=== PATIENT | male | born 1955 | race Caucasian/White ===

== ENCOUNTER 2017-02-11 14:54 | Inpatient (IN) | payer OTHER ==
[~2017-02-11] VITALS: Ht 185.4 cm; Wt 105.0 kg
[2017-02-11] MEDS ORDERED: SODIUM CHLORIDE 0.9% 1000ML 1,000 ML IV STA ×3 (15:02→15:50)
--- NOTE | 2017-02-11 15:15 | EMERGENCY ROOM VISIT NOTE ---
History Report prepared by Gretta: Jolly Wilburn Under the Supervision of: Dr. Thanh Perdue M.D. First contact with patient: 14:56 Stated Complaint: HYPOXIA, HYPOTENSION History of Present Illness The patient is a 61 year old male who presents to the Emergency Room with complaints of persistent hypoxia that started prior to arrival. He was brought to the ED via EMS. EMS reports the patient experienced a near syncopal episode while at his doctor's office earlier today. The patient states he began to feel short of breath, then "everything went white" while he was waiting to be seen. His blood pressure was very low in the office, so EMS was called. The patient denies experiencing any chest pain today. He recently left [facility] after a 6 day stay. He states he left AMA because he was "fed up" with being mistreated while at [place]. He has been home for approximately 2 days. He states he has been eating and drinking normally. He has a history of renal failure and admits he has experienced decreased urinary output recently. He denies any dysuria or hematuria. The patient also complains of cold symptoms that started yesterday, which prompted him going to the doctor's today. He denies any fevers. He is a current smoker and reports he uses a walker to ambulate. 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 A total of 10 systems reviewed and were otherwise negative. Past Medical & Surgical Medical Problems: (1) Renal failure Social History Alcohol Use: occasionally Drug Use: none Marital Status: Housing Status: lives with family Occupation Status: retired Current/Historical Medications Scheduled Amlodipine (Norvasc), 5 MG PO DAILY Celecoxib (Celebrex), 200 MG PO DAILY Folic Acid (Folvite), 1 MG PO DAILY Hydrochlorothiazide (Hctz), 25 MG PO DAILY Lisinopril (Zestril), 40 MG PO DAILY Prednisone (Prednisone), 10 MG PO DAILY Allergies Coded Allergies: Sulfa Drugs (Verified Allergy, Unknown, 02/11/17) Physical Exam Vital Signs Date Time Temp Pulse Resp B/P (MAP) Pulse Ox O2 Delivery O2 Flow Rate FiO2 02/11/17 17:25 84 24 102/74 98 Room Air 02/11/17 16:07 87 20 102/69 98 Room Air 02/11/17 15:17 106 02/11/17 15:07 36.7 108 20 89/57 98 Room Air 02/11/17 15:07 98 Room Air Physical Exam GENERAL: Patient is in no acute distress. HEENT: No acute trauma, normocephalic atraumatic, mucous membranes dry, no nasal congestion, no scleral icterus. NECK: No stridor, no adenopathy, no meningismus, trachea is midline. LUNGS: Scattered wheezing, breath sounds are equal, no rhonchi, no respiratory distress. HEART: Tachycardic with a regular rhythm. No murmurs. ABDOMEN: Soft, nontender, bowel sounds positive, no hernias, no peritonitis. RECTAL: Stool is dark and heme positive. EXTREMITIES: No cyanosis, mild bilateral pedal edema, full range of motion of all the joints without pain or difficulty, no signs for acute trauma. NEUROLOGIC: Oriented x 3, no acute motor or sensory deficits, no focal weakness. SKIN: No rash, no jaundice, no diaphoresis. Medical Decision & Procedures ER Provider Diagnostic Interpretation: Radiology results as stated below per my review and radiologist interpretation: CHEST ONE VIEW PORTABLE CLINICAL HISTORY: Altered mental status. Weakness. COMPARISON STUDY: No previous studies for comparison. FINDINGS: The heart is normal in size. Underlying emphysema is suspected. There is no acute parenchymal consolidation. There is no failure. There are no pleural effusions. IMPRESSION: AP portable study. No acute findings. Electronically signed by: Elias Simpson M.D. 02/11/2017 3:45 PM Laboratory Results 02/11/17 14:37 Red Blood Count 2.69, Mean Corpuscular Volume 99.6, Mean Corpuscular Hemoglobin 33.1, Mean Corpuscular Hemoglobin Concent 33.2, Mean Platelet Volume 10.7, Neutrophils (%) (Auto) 88.0, Lymphocytes (%) (Auto) 5.9, Monocytes (%) (Auto) 5.0, Eosinophils (%) (Auto) 0.8, Basophils (%) (Auto) 0.0, Neutrophils # (Auto) 6.36, Lymphocytes # (Auto) 0.43, Monocytes # (Auto) 0.36, Eosinophils # (Auto) 0.06, Basophils # (Auto) 0.00 02/11/17 14:37 Test 02/11/17 14:37 02/11/17 15:15 02/11/17 16:48 White Blood Count 7.23 K/uL (4.8-10.8) Red Blood Count 2.69 M/uL (4.7-6.1) Hemoglobin 8.9 g/dL (14.0-18.0) Hematocrit 26.8 % (42-52) Mean Corpuscular Volume 99.6 fL (80-100) Mean Corpuscular Hemoglobin 33.1 pg (25-34) Mean Corpuscular Hemoglobin Concent 33.2 g/dl (32-36) Platelet Count 165 K/uL (130-400) Mean Platelet Volume 10.7 fL (7.4-10.4) Neutrophils (%) (Auto) 88.0 % Lymphocytes (%) (Auto) 5.9 % Monocytes (%) (Auto) 5.0 % Eosinophils (%) (Auto) 0.8 % Basophils (%) (Auto) 0.0 % Neutrophils # (Auto) 6.36 K/uL (1.4-6.5) Lymphocytes # (Auto) 0.43 K/uL (1.2-3.4) Monocytes # (Auto) 0.36 K/uL (0.11-0.59) Eosinophils # (Auto) 0.06 K/uL (0-0.5) Basophils # (Auto) 0.00 K/uL (0-0.2) RDW Standard Deviation 51.2 fL (36.4-46.3) RDW Coefficient of Variation 14.2 % (11.5-14.5) Immature Granulocyte % (Auto) 0.3 % Immature Granulocyte # (Auto) 0.02 K/uL (0.00-0.02) Red Blood Cell Morphology Unremarkable Prothrombin Time 15.9 SECONDS (9.0-12.0) Prothromb Time International Ratio 1.5 (0.9-1.1) Activated Partial Thromboplast Time 28.8 SECONDS (21.0-31.0) Partial Thromboplastin Ratio 1.1 Anion Gap 12.0 mmol/L (3-11) Est Creatinine Clear Calc Drug Dose 90.1 ml/min Estimated GFR () 82.9 Estimated GFR (Non- 71.6 BUN/Creatinine Ratio 11.1 (10-20) Calcium Level 8.1 mg/dl (8.5-10.1) Magnesium Level 1.3 mg/dl (1.8-2.4) Total Bilirubin 0.9 mg/dl (0.2-1) Aspartate Amino Transf (AST/SGOT) 23 U/L (15-37) Alanine Aminotransferase (ALT/SGPT) 31 U/L (12-78) Alkaline Phosphatase 71 U/L (45-117) Total Creatine Kinase 29 U/L (39-308) Troponin I 0.016 ng/ml (0-0.045) Total Protein 5.2 gm/dl (6.4-8.2) Albumin 2.3 gm/dl (3.4-5.0) Globulin 2.9 gm/dl (2.5-4.0) Albumin/Globulin Ratio 0.8 (0.9-2) Thyroid Stimulating Hormone (TSH) 2.530 uIu/ml (0.300-4.500) Lactic Acid Level 4.4 mmol/L (0.4-2.0) Urine Color ORANGE Urine Appearance CLEAR (CLEAR) Urine pH 7.5 (4.5-7.5) Urine Specific [place] 1.021 (1.000-1.030) Urine Protein NEG (NEG) Urine Glucose (UA) 2+ (NEG) Urine Ketones NEG (NEG) Urine Occult Blood NEG (NEG) Urine Nitrite NEG (NEG) Urine Bilirubin NEG (NEG) Urine Urobilinogen NEG (NEG) Urine Leukocyte Esterase TRACE (NEG) Urine WBC (Auto) 1-5 /hpf (0-5) Urine RBC (Auto) 0-4 /hpf (0-4) Urine Hyaline Casts (Auto) 5-10 /lpf (0-5) Urine Epithelial Cells (Auto) >30 /lpf (0-5) Urine Bacteria (Auto) NEG (NEG) Urine Renal Epithelial Cells 0-5 /lpf (0-5) Laboratory results reviewed by me. Medications Administered Medications (Trade) Dose Ordered Sig/[place] Route Start Time Stop Time Status Last Admin Dose Admin Sodium Chloride 1,000 ml @ 999 mls/hr Q1H1M STAT IV 02/11/17 15:02 02/11/17 16:02 DC 02/11/17 15:19 999 MLS/HR Sodium Chloride 1,000 ml @ 125 mls/hr Q8H STAT IV 02/11/17 15:02 02/11/17 23:01 02/11/17 15:47 125 MLS/HR Sodium Chloride 1,000 ml @ 999 mls/hr Q1H1M STAT IV 02/11/17 15:50 02/11/17 16:50 DC 02/11/17 16:06 999 MLS/HR Piperacillin Sod/ Tazobactam Sod (Zosyn Iv) 4.5 gm NOW STAT IV 02/11/17 15:58 02/11/17 15:59 DC 02/11/17 17:21 4.5 GM Hydrocortisone Sodium Succinate (Solu-Cortef IV) 100 mg NOW STAT IV 02/11/17 16:24 02/11/17 16:25 DC 02/11/17 17:21 100 MG Pantoprazole Sodium (Protonix IV Bolus/Drip) 1 ea NOW STAT IV 02/11/17 16:42 02/11/17 16:44 DC 02/11/17 17:49 1 EA Pantoprazole Sodium 80 mg/ Dextrose 120 ml @ 480 mls/hr NOW ONCE IV 02/11/17 17:00 02/11/17 17:14 DC 02/11/17 17:21 480 MLS/HR Pantoprazole Sodium 40 mg/ Dextrose 100 ml @ 20 mls/hr Q5H IV 02/11/17 17:15 02/11/17 22:14 02/11/17 17:49 20 MLS/HR ECG Indication: other (hypoxia) Rate (beats per minute): 97 Rhythm: normal sinus Findings: nonspecific-ST abn, no acute ischemic change, no ectopy ED Course 1457: The patient was evaluated in room B7. A complete history and physical exam was performed. 1502: NSS 1000 ml @ 125 mls/hr IV, NSS 1000 ml @ 999 mls/hr IV. 1550: NSS 1000 ml @ 999 mls/hr IV. 1555: The lab informed me the patients lactate is 4. 1558: Zosyn 4.5 gm IV. 1620: I reevaluated the patient. He is looking well and resting comfortably. 1624: Solu-Cortef 100 mg IV. 1630: I reevaluated the patient. He admits he has experienced 1 week of loose, dark, almost black stools. 1641: Magnesium Sulfate 2 gm IV. 1642: Protonix Bolus/Drip IV. 1646: I reevaluated the patient. He is resting comfortably. I discussed my recommendation he remain in the hospital for further evaluation and management and he verbalized complete understanding and agreement. 1706: I discussed the patients case with Dr. Dillon [facility] Hospitalist. The patient will be further evaluated. Medical Decision The differential diagnoses considered include dehydration, infection, sepsis, bacteremia, renal failure, anemia, dysrhythmia, HI or pneumonia. There is no leukocytosis. The patient is anemic with a hemoglobin of 8.9. Renal panel testing did not show renal failure. Magnesium was low at 1.3. No hepatitis. There was a mild coagulopathy with an INR 1.5-the patient does not take any type of blood thinner. Urinalysis does not suggest infection with her is an. Blood cultures are pending. Chest film did not show pneumonia, cardiomegaly or CHF. Rectal exam showed dark stool, heme positive. Lactic acid level was elevated at over 4, consistent with dehydration or possibly infection. I was able to obtain records from the outside hospital where the patient had been admitted last week. Hemoglobin there was in the 12 range. He had been brought into that hospital with acute renal failure. He was hypotensive and dehydrated. He improved with IV hydration. The patient presents here hypotensive, he appears dehydrated. He appears to be suffering from a GI bleed. He did receive aggressive IV saline, he was given 2 L while in the emergency room. He was given an IV Protonix bolus and placed on a Protonix drip. He received IV magnesium for the low magnesium value. He was given IV hydrocortisone as stress dose steroids. He did receive IV Zosyn for empiric antibiotic coverage. The patient requires a hospital stay. I spoke to the case management. The on- call hospitalist was consulted. The patient's blood pressure has improved, his heart rate has improved with his treatment in the ER. Medication Reconcilliation Current Medication List: was personally reviewed by me Blood Pressure Screening Patient's blood pressure: Low blood pressure (Low blood pressure will be further monitored by the hospital medicine team) Consults Time Called: 1641 Consulting Physician: Dr. Dillon [facility] Hospitalist Returned Call: 1650 I discussed the patients case with Dr. Dillon, [facility] Hospitalist. The patient will be further evaluated. Impression Primary Impression: Hypotension Additional Impressions: GI bleed Hypomagnesemia Dehydration Scribe Attestation The scribe's documentation has been prepared under my direction and personally reviewed by me in its entirety. I confirm that the note above accurately reflects all work, treatment, procedures, and medical decision making performed by me. Departure Information Dispostion Being Evaluated By Hospitalist Referrals No Doctor, Assigned (PCP) Problem Qualifiers
--- NOTE | 2017-02-11 15:46 | DIAGNOSTIC IMAGING REPORT ---
CHEST ONE VIEW PORTABLE CLINICAL HISTORY: Altered mental status. Weakness. COMPARISON STUDY: No previous studies for comparison. FINDINGS: The heart is normal in size. Underlying emphysema is suspected. There is no acute parenchymal consolidation. There is no failure. There are no pleural effusions.[ IMPRESSION: AP portable study. No acute findings. Electronically signed by: Elias Simpson M.D. 02/11/2017 3:45 PM Dictated Date/Time: 02/11/2017 3:44 PM
[2017-02-11] MEDS ORDERED: LISI40TA PO (15:52)
[2017-02-11] MEDS ORDERED: FOLI1TAB7 PO (15:52)
[2017-02-11] MEDS ORDERED: PRED10TA PO (15:52)
[2017-02-11] MEDS ORDERED: CLB100 PO (15:52)
[2017-02-11 15:55] LABS: EOS % 0.8 %; HEMATOCRIT 26.8 % (42-52); IG% 0.3 %; LYMPH % 5.9 %; LYMPH ABS # 0.43 K/uL (1.2-3.4); MEAN CELL VOLUME 99.6 fL (80-100); MEAN CORPUSCULAR HEMOGLOBIN 33.1 pg (25-34); MEAN CORPUSCULAR HGB CONC 33.2 g/dl (32-36); MEAN PLATELET VOLUME 10.7 fL (7.4-10.4); PLATELET COUNT 165 K/uL (130-400); RED BLOOD COUNT 2.69 M/uL (4.7-6.1); WHITE BLOOD COUNT 7.23 K/uL (4.8-10.8)
[2017-02-11] MEDS ORDERED: PIPERACILLIN/TAZOBACTAM 4.5 GM/100ML D5W IV STA (15:58)
[2017-02-11] MEDS ORDERED: HYDR25TA4 PO (16:00)
[2017-02-11] MEDS ORDERED: AMLO-110 PO (16:00)
[2017-02-11 16:04] LABS: INR 1.5 (0.9-1.1); PARTIAL THROMBOPLASTIN RATIO 1.1; PROTHROMBIN TIME (PATIENT) 15.9 SECONDS (9.0-12.0)
[2017-02-11 16:22] LABS: COMPLETE YES
[2017-02-11] MEDS ORDERED: HYDROCORTISONE SOD SUCCINATE 100 MG/2 ML VIAL IV STA (16:24)
[2017-02-11 16:29] LABS: BUN/CREATININE RATIO 11.1 (10-20); CALCIUM 8.1 mg/dl (8.5-10.1); CREATININE 1.1 mg/dl (0.60-1.40); MAGNESIUM 1.3 mg/dl (1.8-2.4); POTASSIUM 3.4 mmol/L (3.5-5.1)
[2017-02-11 16:40] LABS: ALB/GLOB RATIO 0.8 (0.9-2); THYROID STIMULATING HORMONE 2.53 uIu/ml (0.300-4.500)
[2017-02-11] MEDS ORDERED: MAGNESIUM SULFATE 1GM / D5W 1 GM BAG IV STA (16:41)
[2017-02-11] MEDS ORDERED: PANTOprazole INJ 80 MG in DEXTROSE 5% 100ML IV ONE (17:00)
[2017-02-11] MEDS ORDERED: PANTOprazole INJ 40 MG in DEXTROSE 5% 100ML IV SCH (17:15)
[2017-02-11 17:18] LABS: URINE APPEARANCE CLEAR (CLEAR); URINE BILIRUBIN NEG (NEG); URINE COLOR ORANGE; URINE EPITHELIAL CELL AUTO >30 /lpf (0-5); URINE NITRITE NEG (NEG); URINE PH 7.5 (4.5-7.5); URINE SPECIFIC GRAVITY 1.021 (1.000-1.030); UROBILINOGEN NEG (NEG); ZZURINE CULT IF INDIC CATH NO
[2017-02-11 17:31] LABS: MANUAL MICROSCOPIC REQUIRED? NO; REVIEW REQ? YES; SULFASALICYLIC ACID NEG (NEG)
--- NOTE | 2017-02-11 19:33 | History and Physical ---
History & Physical Date & Time of Service: Feb 11, 2017 at 19:32 Chief Complaint: Hypoxia, Hypotension Primary Care Physician: Patrick Purdy M.D. History of Present Illness Source: patient 61 year old male who comes from [facility] from [facility]. Patient reports that this past month he has been having loose dark tarry stools. And has been feeling fatigue on and off during this time. His step daughter who recently moved in with him has noticed a difference and recommended that e go to the hosptal. He went to [facility] last week (Past Saturday). And was hospitalized for dehydration and hypotension. He was seen in the ICU. After 5 days, patient signed out AMA as he felt that they did not get to the bottom of his problem. Today, patient felt lightheaded and felt like his vision became altered as he can only see white. He came to [facility] wo recommended him to go to the ER. In the ER, he was found to have heme postive occult blood and hypotension. Admission was called after IV fluids and PPI drip was called. Patient states that at home prior to admission, he was taking prednsione 10 mg every other day, but tis increased to 10mg daily of prednisone after being seen in [place]. He also takes intermittent NSAIDS OTC and celebrex. Past Medical/Surgical History Only one hospitalization noted in HPI. Hypertension Likely Rheumatoid Arthritis Family History noncontributory Social History Smoking Status: Current Every Day Smoker (smokes 1 pack lasts one week) Smokeless Tobacco Use: No Alcohol Use: socially Drug Use: none Marital Status: , Housing status: lives with family (step daughter) Occupational Status: retired Immunizations History of Influenza Vaccine: Unknown History of Tetanus Vaccine?: Unknown History of Pneumococcal: Unknown History of Hepatitis B Vaccine: Unknown Multi-Drug Resistant Organisms History of MDRO: No Allergies Coded Allergies: Sulfa Drugs (Verified Allergy, Unknown, 02/11/17) Home Medications Scheduled Amlodipine (Norvasc), 5 MG PO DAILY Celecoxib (Celebrex), 200 MG PO DAILY Folic Acid (Folvite), 1 MG PO DAILY Hydrochlorothiazide (Hctz), 25 MG PO DAILY Lisinopril (Zestril), 40 MG PO DAILY Prednisone (Prednisone), 10 MG PO DAILY Review of Systems Constitutional: No fever, No chills, No sweats, No weakness Eyes: + worsening of vision, No eye pain ENT: No hearing loss, No unusual epistaxis, No nasal symptoms, No sore throat, No tinnitus, No dental problems, No trouble swallowing, No problem reported Respiratory: No cough, No sputum, No wheezing, No shortness of breath, No dyspnea on exertion, No dyspnea at rest, No hemoptysis, No problem reported Cardiovascular: No chest pain, No orthopnea, No PND, No edema, No claudication , No palpitations, No problem reported Abdomen: + diarrhea, + GI bleeding, No pain, No nausea, No vomiting, No constipation, No problem reported Genitourinary - Male: No hematuria, No dysuria, No urinary frequency, No urinary urgency Neurologic: + balance problems, No memory loss Psychiatric: No depression symptoms, No anhedonism Endocrine: + fatigue, No excessive thirst, No excessive urination Hematologic / Lymphatic: No abnormal bleeding/bruising, No clotting problems, No swollen lymph nodes, No night sweats Integumentary: No rash, No itch Allergic / Immunologic: No environmental allergies, No seasonal allergies, No food allergies Physical Exam Vital Signs Date Time Temp Pulse Resp B/P (MAP) Pulse Ox O2 Delivery O2 Flow Rate FiO2 02/11/17 17:25 84 24 102/74 98 Room Air 02/11/17 16:07 87 20 102/69 98 Room Air 02/11/17 15:17 106 02/11/17 15:07 36.7 108 20 89/57 98 Room Air 02/11/17 15:07 98 Room Air General Appearance: WD/WN, no apparent distress Head: normocephalic, atraumatic Eyes: normal inspection, PERRL, EOMI ENT: normal ENT inspection, hearing grossly normal Neck: supple, no adenopathy, thyroid normal, no JVD Respiratory/Chest: chest non-tender, lungs clear, normal breath sounds, no respiratory distress, no accessory muscle use Cardiovascular: regular rate, rhythm, no edema, no gallop, no JVD, no murmur Abdomen/GI: normal bowel sounds, non tender, soft, no organomegaly, no pulsatile mass Back: normal inspection, no CVA tenderness Extremities/Musculoskelatal: normal inspection, no calf tenderness, normal capillary refill, no pedal edema 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 nml as tested, no motor/sensory deficits, alert, normal mood/affect, oriented x 3 Skin: normal color, warm/dry, no rash Lymphatic: no adenopathy Diagnostics Laboratory Results Results Past 24 Hours Test 02/11/17 14:37 02/11/17 15:15 02/11/17 16:48 Range/Units White Blood Count 7.23 4.8-10.8 K/uL Red Blood Count 2.69 4.7-6.1 M/uL Hemoglobin 8.9 14.0-18.0 g/dL Hematocrit 26.8 42-52 % Mean Corpuscular Volume 99.6 80-100 fL Mean Corpuscular Hemoglobin 33.1 25-34 pg Mean Corpuscular Hemoglobin Concent 33.2 32-36 g/dl Platelet Count 165 130-400 K/uL Mean Platelet Volume 10.7 7.4-10.4 fL Neutrophils (%) (Auto) 88.0 % Lymphocytes (%) (Auto) 5.9 % Monocytes (%) (Auto) 5.0 % Eosinophils (%) (Auto) 0.8 % Basophils (%) (Auto) 0.0 % Neutrophils # (Auto) 6.36 1.4-6.5 K/uL Lymphocytes # (Auto) 0.43 1.2-3.4 K/uL Monocytes # (Auto) 0.36 0.11-0.59 K/uL Eosinophils # (Auto) 0.06 0-0.5 K/uL Basophils # (Auto) 0.00 0-0.2 K/uL RDW Standard Deviation 51.2 36.4-46.3 fL RDW Coefficient of Variation 14.2 11.5-14.5 % Immature Granulocyte % (Auto) 0.3 % Immature Granulocyte # (Auto) 0.02 0.00-0.02 K/uL Red Blood Cell Morphology Unremarkable Prothrombin Time 15.9 9.0-12.0 SECONDS Prothromb Time International Ratio 1.5 0.9-1.1 Activated Partial Thromboplast Time 28.8 21.0-31.0 SECONDS Partial Thromboplastin Ratio 1.1 Sodium Level 138 136-145 mmol/L Potassium Level 3.4 3.5-5.1 mmol/L Chloride Level 103 98-107 mmol/L Carbon Dioxide Level 23 21-32 mmol/L Anion Gap 12.0 3-11 mmol/L Blood Urea Nitrogen 12 7-18 mg/dl Creatinine 1.10 0.60-1.40 mg/dl Est Creatinine Clear Calc Drug Dose 90.1 ml/min Estimated GFR () 82.9 Estimated GFR (Non- 71.6 BUN/Creatinine Ratio 11.1 10-20 Random Glucose 134 70-99 mg/dl Calcium Level 8.1 8.5-10.1 mg/dl Magnesium Level 1.3 1.8-2.4 mg/dl Total Bilirubin 0.9 0.2-1 mg/dl Aspartate Amino Transf (AST/SGOT) 23 15-37 U/L Alanine Aminotransferase (ALT/SGPT) 31 12-78 U/L Alkaline Phosphatase 71 45-117 U/L Total Creatine Kinase 29 39-308 U/L Troponin I 0.016 0-0.045 ng/ml Total Protein 5.2 6.4-8.2 gm/dl Albumin 2.3 3.4-5.0 gm/dl Globulin 2.9 2.5-4.0 gm/dl Albumin/Globulin Ratio 0.8 0.9-2 Thyroid Stimulating Hormone (TSH) 2.530 0.300-4.500 uIu/ml Lactic Acid Level 4.4 0.4-2.0 mmol/L Urine Color ORANGE Urine Appearance CLEAR CLEAR Urine pH 7.5 4.5-7.5 Urine Specific [place] 1.021 1.000-1.030 Urine Protein NEG NEG Urine Glucose (UA) 2+ NEG Urine Ketones NEG NEG Urine Occult Blood NEG NEG Urine Nitrite NEG NEG Urine Bilirubin NEG NEG Urine Urobilinogen NEG NEG Urine Leukocyte Esterase TRACE NEG Urine WBC (Auto) 1-5 0-5 /hpf Urine RBC (Auto) 0-4 0-4 /hpf Urine Hyaline Casts (Auto) 5-10 0-5 /lpf Urine Epithelial Cells (Auto) >30 0-5 /lpf Urine Bacteria (Auto) NEG NEG Urine Renal Epithelial Cells 0-5 0-5 /lpf Microbiology Results 02/11/17 Blood Culture, Received Pending 02/11/17 Blood Culture, Received Pending Diagnostic Radiology CHEST ONE VIEW PORTABLE CLINICAL HISTORY: Altered mental status. Weakness. COMPARISON STUDY: No previous studies for comparison. FINDINGS: The heart is normal in size. Underlying emphysema is suspected. There is no acute parenchymal consolidation. There is no failure. There are no pleural effusions.[ IMPRESSION: AP portable study. No acute findings. Electronically signed by: Elias Simpson M.D. 02/11/2017 3:45 PM EKG ID:[id number] 11-FEB-2017 15:38:13 [facility] Poor data quality, interpretation may be adversely affected Normal sinus rhythm Incomplete right bundle branch block Normal ECG No previous ECGs available Confirmed by Clive Nam ([id number]) on 02/11/2017 4:57:27 PM 25mm/s 10mm/mV 150Hz 8.0 SP2 12SL 241 MARCELL: 3 Referred by: Referred Self Confirmed By: Clive Nam Vent. rate 97 BPM NC interval 118 ms QRS duration 88 ms QT/QTc 396/502 ms P-R-T axes 56 28 52 Normal EKG Impression Assessment and Plan Anemia secondary to UPPER GI Bleed Likely secondary to nsaid use and prednisone. Patient will be placed on PPI drip. Patient will be placed on IVF. GI consulted for likely upper endoscopy. Currently vitals stable and clinicaly stable, will admit to telemetry floor. Acute renal failure likely secondary to first problem from GI bleed. Patient received about 2 liters fluid in ER. Will continue IVF. Hypertension Will hold 3 medications lisinopril, HCTZ, Amlodipine given that patient presented with hypotension and requires intravenous fluids. Level of Care Telemetry Advanced Directives Existing Advance Directive: No Existing Living Will: No Existing Power of Stone Carver: No (Patient would like to have step daughter as power of director of instruction) Existing Health Care Proxy: No Resuscitation Status DO NOT RESUSCITATE VTE Prophylaxis VTE Risk Assessment Done? Y/N: Yes Risk Level: Moderate Given or contraindicated: Ji Stockings, SCD's Social Service Consult None Apply
[2017-02-11 20:40] VITALS: BP 110/70; PULSE 103; TEMP 36.5; O2SAT 97; Ht 185.4 cm; Wt 105.0 kg
[2017-02-11] MEDS: SODIUM CHLORIDE 0.9% 1000ML 1,000 ML IV SCH (22:03)
[2017-02-11] MEDS ORDERED: AZITHROMYCIN IV 500 MG in DEXTROSE 5% 250ML 250 ML IV ONE (23:00)
[2017-02-11 23:06] VITALS: BP 106/67; PULSE 83; TEMP 37; O2SAT 93
[2017-02-11] MEDS: PANTOprazole INJ 40 MG in DEXTROSE 5% 100ML IV SCH (23:25)
[2017-02-11 23:30] LABS: HEMATOCRIT 22.5 % (42-52)
[2017-02-12] VITALS (12 sets, daily range): BP systolic 99–131; BP diastolic 69–86; PULSE 72–108; TEMP 36.6–36.9; O2SAT 91–96
[2017-02-12 00:07] LABS: ALB/GLOB RATIO 0.8 (0.9-2); BUN/CREATININE RATIO 22.1 (10-20); CREATININE 0.64 mg/dl (0.60-1.40); MAGNESIUM 1.8 mg/dl (1.8-2.4); POTASSIUM 3.8 mmol/L (3.5-5.1)
--- NOTE | 2017-02-12 01:26 | Progress Note ---
Progress Note Date of Service Feb 12, 2017. Progress Note Patient admitted for GI bleed. Hgb dropped to 8.9 to 7.6 overnight. Likely a large element on dilution from fluid resuscitation. However he is symptomatic ( SOBOE) with ongoing (heme positive) black stool. Therefore will transfuse 1 unit and continue to check H&H afterwards. Consent form already signed. Lactic acid has normalized. Magnesium now 1.8.
[2017-02-12] MEDS: PANTOprazole INJ 40 MG in DEXTROSE 5% 100ML IV SCH ×4 (04:07→20:18)
--- NOTE | 2017-02-12 07:27 | DIAGNOSTIC IMAGING REPORT ---
CHEST ONE VIEW PORTABLE CLINICAL HISTORY: Hypoxia dyspnea COMPARISON STUDY: 2016 FINDINGS: The bones soft tissues and hemidiaphragms are normal. The cardiomediastinal silhouette is normal. The lungs are clear. The pulmonary vasculature is normal. IMPRESSION: Negative chest. No change from the prior exam The above report was generated using voice recognition software. It may contain grammatical, syntax or spelling errors. Electronically signed by: Tim Garcia M.D. 02/12/2017 7:26 AM Dictated Date/Time: 02/12/2017 7:25 AM
[2017-02-12 07:48] LABS: BASO % 0.2 %; BASO ABS # 0.01 K/uL (0-0.2); EOS % 0.3 %; HEMATOCRIT 23.6 % (42-52); IG% 0.5 %; LYMPH % 14.2 %; LYMPH ABS # 0.89 K/uL (1.2-3.4); MEAN CELL VOLUME 96.3 fL (80-100); MEAN CORPUSCULAR HEMOGLOBIN 33.9 pg (25-34); MEAN CORPUSCULAR HGB CONC 35.2 g/dl (32-36); MEAN PLATELET VOLUME 10.1 fL (7.4-10.4); MONO % 7.8 %; PLATELET COUNT 130 K/uL (130-400); RED BLOOD COUNT 2.45 M/uL (4.7-6.1); WHITE BLOOD COUNT 6.28 K/uL (4.8-10.8)
[2017-02-12 07:49] LABS: HEMATOCRIT 23.6 % (42-52)
[2017-02-12 08:05] LABS: BUN/CREATININE RATIO 24.7 (10-20); CALCIUM 7.2 mg/dl (8.5-10.1); CREATININE 0.53 mg/dl (0.60-1.40); POTASSIUM 3.3 mmol/L (3.5-5.1)
[2017-02-12 08:21] LABS: FERRITIN 3027.1 ng/ml (8.0-388.0)
[2017-02-12 08:26] LABS: COMPLETE YES; ECHINOCYTES 1+; HYPERSEGMENTED POLYS 1+
[2017-02-12] MEDS: SODIUM CHLORIDE 0.9% 1000ML 1,000 ML IV SCH (10:22)
--- NOTE | 2017-02-12 10:34 | Progress Note ---
Subjective Date of Service: Feb 12, 2017. Subjective Pt evaluation today including: conversation w/ patient, physical exam, chart review, lab review Patient reports feeling better today. No abdominal pain is noted today. D/W Nurse overnight, patient was given 1 unit of Pack Red Blood Cells when his Hemoglobin dropped to 7.3; it was also discovered that patient was in contact with family that was in contact with florini. Family physician would like for patient to be tested. Test was ordered, droplet precautions ordered. Nurse reported weakness when ambulating patient from OOB to toilet. Also he had 1 BM of melanous stool. Problem List Medical Problems: (1) Dehydration Status: Acute (2) GI bleed Status: Acute (3) Hypomagnesemia Status: Acute (4) Hypotension Status: Acute Review of Systems Constitutional: No fever, No chills ROS was negative except for what was noted on HPI. All Other Systems: Reviewed and Negative Medications Current Inpatient Medications Medications (Trade) Dose Ordered Sig/[place] Route Start Time Stop Time Status Last Admin Dose Admin Sodium Chloride 1,000 ml @ 100 mls/hr Q10H IV 02/11/17 21:15 03/13/17 21:14 02/11/17 22:03 100 MLS/HR Folic Acid (Folvite Tab) 1 mg DAILY PO 02/12/17 09:00 03/14/17 08:59 Azithromycin 250 mg/Dextrose 252.5 ml @ 125 mls/hr Q24H IV 02/12/17 22:00 02/16/17 21:59 Pantoprazole Sodium 40 mg/ Dextrose 100 ml @ 20 mls/hr Q5H IV 02/11/17 23:00 03/13/17 22:59 02/12/17 04:07 20 MLS/HR Objective Vital Signs Date Time Temp Pulse Resp B/P (MAP) Pulse Ox O2 Delivery O2 Flow Rate FiO2 02/12/17 08:45 Room Air 02/12/17 07:58 36.7 80 20 119/79 (92) 95 Room Air 02/12/17 05:08 36.8 72 20 113/79 93 02/12/17 04:05 36.9 80 19 119/79 93 02/12/17 04:02 Room Air 02/12/17 03:33 36.9 80 20 121/84 94 02/12/17 03:13 36.8 82 22 131/86 93 02/12/17 00:00 Room Air 02/11/17 23:06 37.0 83 22 106/67 (80) 93 Room Air 02/11/17 20:40 Room Air 02/11/17 20:40 36.5 103 24 110/70 97 Room Air 02/11/17 20:12 82 24 96/68 96 02/11/17 20:01 82 24 96/68 96 Room Air 02/11/17 19:30 81 20 103/67 96 Room Air 02/11/17 19:20 83 02/11/17 19:00 83 19 103/76 98 Room Air 02/11/17 18:40 85 18 97/69 98 Room Air 02/11/17 17:25 84 24 102/74 98 Room Air 02/11/17 16:07 87 20 102/69 98 Room Air 02/11/17 15:17 106 02/11/17 15:07 36.7 108 20 89/57 98 Room Air 02/11/17 15:07 98 Room Air Physical Exam General Appearance: WD/WN, no apparent distress Eyes: normal inspection Neck: supple, no adenopathy Respiratory/Chest: chest non-tender, no accessory muscle use, + decreased breath sounds, + wheezing Cardiovascular: regular rate, rhythm, no edema, no gallop, no JVD Abdomen: normal bowel sounds, non tender, soft, no organomegaly Extremities: normal range of motion, non-tender, normal inspection Neurologic/Psychiatric: alert, normal mood/affect, oriented x 3 Skin: normal color, warm/dry Lymphatic: no adenopathy Laboratory Results Last 24 Hours Test 02/11/17 14:37 02/11/17 15:15 02/11/17 16:48 02/11/17 23:20 White Blood Count 7.23 K/uL Red Blood Count 2.69 M/uL Hemoglobin 8.9 g/dL Hematocrit 26.8 % Mean Corpuscular Volume 99.6 fL Mean Corpuscular Hemoglobin 33.1 pg Mean Corpuscular Hemoglobin Concent 33.2 g/dl Platelet Count 165 K/uL Mean Platelet Volume 10.7 fL Neutrophils (%) (Auto) 88.0 % Lymphocytes (%) (Auto) 5.9 % Monocytes (%) (Auto) 5.0 % Eosinophils (%) (Auto) 0.8 % Basophils (%) (Auto) 0.0 % Neutrophils # (Auto) 6.36 K/uL Lymphocytes # (Auto) 0.43 K/uL Monocytes # (Auto) 0.36 K/uL Eosinophils # (Auto) 0.06 K/uL Basophils # (Auto) 0.00 K/uL RDW Standard Deviation 51.2 fL RDW Coefficient of Variation 14.2 % Immature Granulocyte % (Auto) 0.3 % Immature Granulocyte # (Auto) 0.02 K/uL Red Blood Cell Morphology Unremarkable Prothrombin Time 15.9 SECONDS Prothromb Time International Ratio 1.5 Activated Partial Thromboplast Time 28.8 SECONDS Partial Thromboplastin Ratio 1.1 Sodium Level 138 mmol/L Potassium Level 3.4 mmol/L Chloride Level 103 mmol/L Carbon Dioxide Level 23 mmol/L Anion Gap 12.0 mmol/L Blood Urea Nitrogen 12 mg/dl Creatinine 1.10 mg/dl Est Creatinine Clear Calc Drug Dose 90.1 ml/min Estimated GFR () 82.9 Estimated GFR (Non- 71.6 BUN/Creatinine Ratio 11.1 Random Glucose 134 mg/dl Calcium Level 8.1 mg/dl Magnesium Level 1.3 mg/dl Total Bilirubin 0.9 mg/dl Aspartate Amino Transf (AST/SGOT) 23 U/L Alanine Aminotransferase (ALT/SGPT) 31 U/L Alkaline Phosphatase 71 U/L Total Creatine Kinase 29 U/L Troponin I 0.016 ng/ml Total Protein 5.2 gm/dl Albumin 2.3 gm/dl Globulin 2.9 gm/dl Albumin/Globulin Ratio 0.8 Thyroid Stimulating Hormone (TSH) 2.530 uIu/ml Lactic Acid Level 4.4 mmol/L Urine Color ORANGE Urine Appearance CLEAR Urine pH 7.5 Urine Specific [place] 1.021 Urine Protein NEG Urine Glucose (UA) 2+ Urine Ketones NEG Urine Occult Blood NEG Urine Nitrite NEG Urine Bilirubin NEG Urine Urobilinogen NEG Urine Leukocyte Esterase TRACE Urine WBC (Auto) 1-5 /hpf Urine RBC (Auto) 0-4 /hpf Urine Hyaline Casts (Auto) 5-10 /lpf Urine Epithelial Cells (Auto) >30 /lpf Urine Bacteria (Auto) NEG Urine Renal Epithelial Cells 0-5 /lpf Test 02/11/17 23:21 02/12/17 07:25 Hemoglobin 7.6 g/dL 8.3 g/dL Hematocrit 22.5 % 23.6 % Sodium Level 140 mmol/L 140 mmol/L Potassium Level 3.8 mmol/L 3.3 mmol/L Chloride Level 107 mmol/L 107 mmol/L Carbon Dioxide Level 27 mmol/L 28 mmol/L Anion Gap 6.0 mmol/L 5.0 mmol/L Blood Urea Nitrogen 14 mg/dl 13 mg/dl Creatinine 0.64 mg/dl 0.53 mg/dl Est Creatinine Clear Calc Drug Dose 154.9 ml/min 185.6 ml/min Estimated GFR () 121.6 131.4 Estimated GFR (Non- 104.9 113.4 BUN/Creatinine Ratio 22.1 24.7 Random Glucose 125 mg/dl 86 mg/dl Lactic Acid Level 1.4 mmol/L Calcium Level 7.0 mg/dl 7.2 mg/dl Magnesium Level 1.8 mg/dl Total Bilirubin 0.6 mg/dl Aspartate Amino Transf (AST/SGOT) 17 U/L Alanine Aminotransferase (ALT/SGPT) 27 U/L Alkaline Phosphatase 57 U/L Total Protein 4.7 gm/dl Albumin 2.1 gm/dl Globulin 2.6 gm/dl Albumin/Globulin Ratio 0.8 White Blood Count 6.28 K/uL Red Blood Count 2.45 M/uL Mean Corpuscular Volume 96.3 fL Mean Corpuscular Hemoglobin 33.9 pg Mean Corpuscular Hemoglobin Concent 35.2 g/dl Platelet Count 130 K/uL Mean Platelet Volume 10.1 fL Neutrophils (%) (Auto) 77.0 % Lymphocytes (%) (Auto) 14.2 % Monocytes (%) (Auto) 7.8 % Eosinophils (%) (Auto) 0.3 % Basophils (%) (Auto) 0.2 % Neutrophils # (Auto) 4.84 K/uL Lymphocytes # (Auto) 0.89 K/uL Monocytes # (Auto) 0.49 K/uL Eosinophils # (Auto) 0.02 K/uL Basophils # (Auto) 0.01 K/uL RDW Standard Deviation 50.5 fL RDW Coefficient of Variation 14.6 % Immature Granulocyte % (Auto) 0.5 % Immature Granulocyte # (Auto) 0.03 K/uL Hypersegmented Polys 1+ Echinocytes 1+ Iron Level 117 mcg/dl Total Iron Binding Capacity 145 mcg/dl Ferritin 3027.1 ng/ml Hepatitis C Antibody Screen NEG Assessment and Plan Anemia secondary to UPPER GI Bleed Likely secondary to nsaid use and prednisone. Patient will be placed on PPI drip. Patient will be placed on IVF. Awaiting GI input. Patient H and H stable after 1 PRBC. Iron studies were done after blood given which skewed test. Acute renal failure likely secondary to first problem from GI bleed. Resolved. SOB likely fluid overload. will hold off IV fluid. will order neb PRN. Hypertension Will continue to hold 3 medications lisinopril, HCTZ, Amlodipine given that patient presented with hypotension. Continued [facility] stay due to: ambulation difficulties, other (awaiting EGD.) Discharge planning: home
--- NOTE | 2017-02-12 10:46 | Gastrointestinal Consultation ---
Gastrointestinal Consultation Date of Consultation: Feb 12, 2017 Attending Physician: Dr. Owens Consulting Physician: Dr. Altman/EDILBERTO Stoddard Reason for Consultation: Acute blood loss anemia History of Present Illness Patient is a 61 year old male with a history of rheumatoid arthritis currently on chronic Prednisone therapy as well as both OTC NSAIDs and Celebrex reporting black stools that have been ongoing for approximately one month. He did present to an outpatient clinic due to feeling of dizziness and was recommended ER evaluation. On arrival, he was noted to have a hemoglobin of 8.9 which dropped slightly to 7.6 last night. He denies any melena today but he was noted to be heme positive in the ER. Interestingly, he does have chronic respiratory issues which he attributes to occupational exposures and tobacco use but he had mentioned being exposed to his granddaughter who was diagnosed clinically with whooping cough by her resume writer and all family members have been placed on quarantine status. He is therefore now on droplet precautions pending his pertussis testing. Patient has been placed on a PPI ggt. Past Medical/Surgical History Medical Problems: (1) Dehydration Status: Acute (2) GI bleed Status: Acute (3) Hypomagnesemia Status: Acute (4) Hypotension Status: Acute Past Medical History: 1. Hypertension 2. Rheumatoid arthritis Past Surgical History: None reported Family History Negative for GI malignancy or IBD Social History Smoking Status: Current Every Day Smoker (smokes 1 pack lasts one week) Alcohol Use: occasionally Drug Use: none Marital Status: , Housing Status: lives with family Occupation Status: retired Allergies Coded Allergies: Sulfa Drugs (Verified Allergy, Unknown, 02/11/17) Current Medications Home Meds and Scripts Medications Dose Route/Sig Max Daily Dose Days Date Category Norvasc (Amlodipine Besylate) 5 Mg Tab 5 Mg PO DAILY 02/11/17 Reported Hctz (Hydrochlorothiazide) 25 Mg Tab 25 Mg PO DAILY 02/11/17 Reported Zestril (Lisinopril) 40 Mg Tab 40 Mg PO DAILY 02/11/17 Reported Folvite (Folic Acid) 1 Mg Tab 1 Mg PO DAILY 02/11/17 Reported Celebrex (Celecoxib) 100 Mg Cap 200 Mg PO DAILY 02/11/17 Reported Prednisone 10 Mg Tab 10 Mg PO DAILY 02/11/17 Reported Review of Systems Constitutional: No fever, No chills Eyes: No problem reported ENT: No trouble swallowing, No pain on swallowing Respiratory: + wheezing, No cough Cardiac: No chest pain, No palpitations Abdomen: + see HPI Musculoskeletal: No problem reported Male : No problem reported Neuro: + see HPI Psych: No problem reported Physical Exam Date Time Temp Pulse Resp B/P (MAP) Pulse Ox O2 Delivery O2 Flow Rate FiO2 02/12/17 08:45 Room Air 02/12/17 07:58 36.7 80 20 119/79 (92) 95 Room Air 02/12/17 05:08 36.8 72 20 113/79 93 02/12/17 04:05 36.9 80 19 119/79 93 02/12/17 04:02 Room Air 02/12/17 03:33 36.9 80 20 121/84 94 02/12/17 03:13 36.8 82 22 131/86 93 02/12/17 00:00 Room Air 02/11/17 23:06 37.0 83 22 106/67 (80) 93 Room Air 02/11/17 20:40 Room Air 02/11/17 20:40 36.5 103 24 110/70 97 Room Air 02/11/17 20:12 82 24 96/68 96 02/11/17 20:01 82 24 96/68 96 Room Air 02/11/17 19:30 81 20 103/67 96 Room Air 02/11/17 19:20 83 02/11/17 19:00 83 19 103/76 98 Room Air 02/11/17 18:40 85 18 97/69 98 Room Air 02/11/17 17:25 84 24 102/74 98 Room Air 02/11/17 16:07 87 20 102/69 98 Room Air 02/11/17 15:17 106 02/11/17 15:07 36.7 108 20 89/57 98 Room Air 02/11/17 15:07 98 Room Air General Appearance: WD/WN, no apparent distress Eyes: EOMI ENT: hearing grossly normal Neck: supple Respiratory/Chest: + rhonchi, + wheezing Cardiovascular: regular rate, rhythm, no gallop, no murmur Abdomen: normal bowel sounds, non tender, soft Extremities: no pedal edema Neurologic/Psych: alert, normal mood/affect, oriented x 3 Skin: warm/dry Laboratory Results Last 24 Hours Test 02/11/17 14:37 02/11/17 15:15 02/11/17 16:48 02/11/17 23:20 White Blood Count 7.23 K/uL Red Blood Count 2.69 M/uL Hemoglobin 8.9 g/dL Hematocrit 26.8 % Mean Corpuscular Volume 99.6 fL Mean Corpuscular Hemoglobin 33.1 pg Mean Corpuscular Hemoglobin Concent 33.2 g/dl Platelet Count 165 K/uL Mean Platelet Volume 10.7 fL Neutrophils (%) (Auto) 88.0 % Lymphocytes (%) (Auto) 5.9 % Monocytes (%) (Auto) 5.0 % Eosinophils (%) (Auto) 0.8 % Basophils (%) (Auto) 0.0 % Neutrophils # (Auto) 6.36 K/uL Lymphocytes # (Auto) 0.43 K/uL Monocytes # (Auto) 0.36 K/uL Eosinophils # (Auto) 0.06 K/uL Basophils # (Auto) 0.00 K/uL RDW Standard Deviation 51.2 fL RDW Coefficient of Variation 14.2 % Immature Granulocyte % (Auto) 0.3 % Immature Granulocyte # (Auto) 0.02 K/uL Red Blood Cell Morphology Unremarkable Prothrombin Time 15.9 SECONDS Prothromb Time International Ratio 1.5 Activated Partial Thromboplast Time 28.8 SECONDS Partial Thromboplastin Ratio 1.1 Sodium Level 138 mmol/L Potassium Level 3.4 mmol/L Chloride Level 103 mmol/L Carbon Dioxide Level 23 mmol/L Anion Gap 12.0 mmol/L Blood Urea Nitrogen 12 mg/dl Creatinine 1.10 mg/dl Est Creatinine Clear Calc Drug Dose 90.1 ml/min Estimated GFR () 82.9 Estimated GFR (Non- 71.6 BUN/Creatinine Ratio 11.1 Random Glucose 134 mg/dl Calcium Level 8.1 mg/dl Magnesium Level 1.3 mg/dl Total Bilirubin 0.9 mg/dl Aspartate Amino Transf (AST/SGOT) 23 U/L Alanine Aminotransferase (ALT/SGPT) 31 U/L Alkaline Phosphatase 71 U/L Total Creatine Kinase 29 U/L Troponin I 0.016 ng/ml Total Protein 5.2 gm/dl Albumin 2.3 gm/dl Globulin 2.9 gm/dl Albumin/Globulin Ratio 0.8 Thyroid Stimulating Hormone (TSH) 2.530 uIu/ml Lactic Acid Level 4.4 mmol/L Urine Color ORANGE Urine Appearance CLEAR Urine pH 7.5 Urine Specific [place] 1.021 Urine Protein NEG Urine Glucose (UA) 2+ Urine Ketones NEG Urine Occult Blood NEG Urine Nitrite NEG Urine Bilirubin NEG Urine Urobilinogen NEG Urine Leukocyte Esterase TRACE Urine WBC (Auto) 1-5 /hpf Urine RBC (Auto) 0-4 /hpf Urine Hyaline Casts (Auto) 5-10 /lpf Urine Epithelial Cells (Auto) >30 /lpf Urine Bacteria (Auto) NEG Urine Renal Epithelial Cells 0-5 /lpf Test 02/11/17 23:21 02/12/17 07:25 Hemoglobin 7.6 g/dL 8.3 g/dL Hematocrit 22.5 % 23.6 % Sodium Level 140 mmol/L 140 mmol/L Potassium Level 3.8 mmol/L 3.3 mmol/L Chloride Level 107 mmol/L 107 mmol/L Carbon Dioxide Level 27 mmol/L 28 mmol/L Anion Gap 6.0 mmol/L 5.0 mmol/L Blood Urea Nitrogen 14 mg/dl 13 mg/dl Creatinine 0.64 mg/dl 0.53 mg/dl Est Creatinine Clear Calc Drug Dose 154.9 ml/min 185.6 ml/min Estimated GFR () 121.6 131.4 Estimated GFR (Non- 104.9 113.4 BUN/Creatinine Ratio 22.1 24.7 Random Glucose 125 mg/dl 86 mg/dl Lactic Acid Level 1.4 mmol/L Calcium Level 7.0 mg/dl 7.2 mg/dl Magnesium Level 1.8 mg/dl Total Bilirubin 0.6 mg/dl Aspartate Amino Transf (AST/SGOT) 17 U/L Alanine Aminotransferase (ALT/SGPT) 27 U/L Alkaline Phosphatase 57 U/L Total Protein 4.7 gm/dl Albumin 2.1 gm/dl Globulin 2.6 gm/dl Albumin/Globulin Ratio 0.8 White Blood Count 6.28 K/uL Red Blood Count 2.45 M/uL Mean Corpuscular Volume 96.3 fL Mean Corpuscular Hemoglobin 33.9 pg Mean Corpuscular Hemoglobin Concent 35.2 g/dl Platelet Count 130 K/uL Mean Platelet Volume 10.1 fL Neutrophils (%) (Auto) 77.0 % Lymphocytes (%) (Auto) 14.2 % Monocytes (%) (Auto) 7.8 % Eosinophils (%) (Auto) 0.3 % Basophils (%) (Auto) 0.2 % Neutrophils # (Auto) 4.84 K/uL Lymphocytes # (Auto) 0.89 K/uL Monocytes # (Auto) 0.49 K/uL Eosinophils # (Auto) 0.02 K/uL Basophils # (Auto) 0.01 K/uL RDW Standard Deviation 50.5 fL RDW Coefficient of Variation 14.6 % Immature Granulocyte % (Auto) 0.5 % Immature Granulocyte # (Auto) 0.03 K/uL Hypersegmented Polys 1+ Echinocytes 1+ Iron Level 117 mcg/dl Total Iron Binding Capacity 145 mcg/dl Ferritin 3027.1 ng/ml Hepatitis C Antibody Screen NEG Impression Patient is a 61 year old male with a history of RA on chronic corticosteroid and NSAID therapy admitted with heme positive stool, melena and symptomatic anemia currently on quarantine for exposure to a grandchild diagnosed with pertussis. Plan 1. Continue PPI ggt. 2. Transfuse as needed. 3. No plan for invasive work up until patient is cleared in regard to pertussis. 4. Continue supportive measures. Thank you for allowing us to participate in the care of this pleasant patient. If you have any questions or concerns, please do not hesitate to contact us. Agree with EDILBERTO Stoddard as above Abd: Soft, NT, ND, +BS Continue current management No EGD at present until Pertussis is ruled out, unless he has continued overt GI bleeding.
[2017-02-12] MEDS: IPRATROPIUM BROMIDE NEB SOLN 0.02% 2.5 ML VIAL INH SCH ×3 (10:58→18:56)
[2017-02-12] MEDS: ALBUTEROL 0.083% NEBU SOLN 3 ML VIAL INH SCH ×3 (10:58→18:56)
[2017-02-12] MEDS ORDERED: ALBUTEROL 0.083% NEBU SOLN 3 ML VIAL INH PRN (11:00)
[2017-02-12] MEDS ORDERED: IPRATROPIUM BROMIDE NEB SOLN 0.02% 2.5 ML VIAL INH PRN (11:15)
[2017-02-12] MEDS: POTASSIUM CHLR 10 MEQ / WTR 10 MEQ in PREMIXED WATER 100 ML IV SCH ×4 (11:42→14:50)
--- NOTE | 2017-02-12 11:54 | Clinical Documentation Query ---
ACACIA Gallardo : CLINICAL DOCUMENTATION QUERY Patient is a 61 year old male admitted for evaluation and treatment of "Anemia secondary to UPPER GI Bleed". H&H down to 7.6 g/dl and 22.5%. Transfused one unit of PRBC's. Monitored with serial hematology. As clinically appropriate, please explicitly clarify the acuity and etiology of the anemia in your patient in a causal format as suggested below. In your clinical opinion is this patient being managed for: ( x ) Acute blood loss and hemodilution related anemia ( ) Not Agree ( ) Other explanation of clinical findings (Please Explain) ( ) Unable to determine (Please Define) ( ) Need to Discuss The medical record reflects the following clinical findings, treatment, and risk factors. Clinical Indicators: As above Treatment: Transfused one unit of PRBC's. Monitored with serial hematology. GI consultation Risk Factors: NSAID and prednisone use Please clarify and document your clinical opinion in the progress notes and discharge summary. Terms such as "probable", "suspected", "likely", "questionable", "possible", or "still to be ruled out" are acceptable. IF IN AGREEMENT, YOU MUST DOCUMENT ABOVE DIAGNOSTIC STATEMENT IN DAILY PROGRESS NOTES AND DISCHARGE SUMMARY. This document is not part of the patient's record. Thank You, Jose Barreto, STEVIE [phone]
[2017-02-12 12:33] LABS: HEMATOCRIT 24.8 % (42-52)
[2017-02-12 16:25] LABS: HEMATOCRIT 22.3 % (42-52)
[2017-02-12] MEDS ORDERED: ALBUT/IPRATROP 3MG/0.5MG NEB 3 ML VIAL INH PRN (19:00)
[2017-02-12 20:16] LABS: HEMATOCRIT 22.9 % (42-52)
[2017-02-12] MEDS: ALBUT/IPRATROP 3MG/0.5MG NEB 3 ML VIAL INH SCH (21:00)
[2017-02-13] VITALS (11 sets, daily range): BP systolic 94–116; BP diastolic 59–89; PULSE 72–116; TEMP 36.5–38.2; O2SAT 90–97
[2017-02-13] MEDS: AZITHROMYCIN IV 250 MG in DEXTROSE 5% 250ML 250 ML IV SCH ×2 (00:24→21:32)
[2017-02-13] MEDS: ALBUT/IPRATROP 3MG/0.5MG NEB 3 ML VIAL INH SCH ×4 (02:01→19:18)
[2017-02-13] MEDS: PANTOprazole INJ 40 MG in DEXTROSE 5% 100ML IV SCH ×5 (02:07→20:08)
[2017-02-13 07:30] LABS: BASO % 0.2 %; BASO ABS # 0.01 K/uL (0-0.2); EOS % 1.5 %; IG% 0.4 %; LYMPH % 12.9 %; LYMPH ABS # 0.67 K/uL (1.2-3.4); MEAN CORPUSCULAR HEMOGLOBIN 33.9 pg (25-34); MEAN CORPUSCULAR HGB CONC 35.7 g/dl (32-36); MEAN PLATELET VOLUME 10.7 fL (7.4-10.4); MONO % 5.4 %; NEUT % 79.6 %; PLATELET COUNT 122 K/uL (130-400); RED BLOOD COUNT 2.21 M/uL (4.7-6.1)
[2017-02-13 07:41] LABS: CALCIUM 6.8 mg/dl (8.5-10.1); CREATININE 0.5 mg/dl (0.60-1.40)
[2017-02-13 08:20] LABS: COMPLETE YES; ECHINOCYTES 1+
[2017-02-13] MEDS: POTASSIUM CHLR 10 MEQ / WTR 10 MEQ in PREMIXED WATER 100 ML IV SCH ×4 (10:19→15:15)
[2017-02-13] MEDS ORDERED: PROPOFOL IV EMULSION 10 MG/ML 20 ML VIAL IV ONE (12:12)
[2017-02-13] MEDS ORDERED: LIDOCAINE HCL 2% 2 ML VIAL (20MG/ML) ONE (12:25)
[2017-02-13] MEDS ORDERED: FENTANYL CITRATE INJ 50 MCG/1 ML 2 ML VIAL ONE (12:26)
[2017-02-13] MEDS ORDERED: ONDANSETRON INJ 2 MG/ML 2 ML VIAL ONE (12:53)
--- NOTE | 2017-02-13 12:56 | GI REPORT ---
Procedure Date: 02/13/2017 12:25 PM Procedure: Upper GI endoscopy Indications: Acute post hemorrhagic anemia, Melena Medicines: Monitored Anesthesia Care Complications: No immediate complications. Estimated Blood Loss: Estimated blood loss: none. Procedure: Pre-Anesthesia Assessment: - Prior to the procedure, a History and Physical was performed, and patient medications and allergies were reviewed. The patient's tolerance of previous anesthesia was also reviewed. The risks and benefits of the procedure and the sedation options and risks were discussed with the patient. All questions were answered, and informed consent was obtained. Prior Anticoagulants: The patient has taken no previous anticoagulant or antiplatelet agents. ASA Grade Assessment: IV - A patient with severe systemic disease that is a constant threat to life. After reviewing the risks and benefits, the patient was deemed in satisfactory condition to undergo the procedure. After obtaining informed consent, the endoscope was passed under direct vision. Throughout the procedure, the patient's blood pressure, pulse, and oxygen saturations were monitored continuously. The scope was introduced through the mouth, and advanced to the second part of duodenum. The upper GI endoscopy was accomplished without difficulty. The patient tolerated the procedure well. Findings: The examined esophagus was normal. A small hiatus hernia was present. Many non-bleeding cratered gastric ulcers with no stigmata of bleeding were found in the entire examined stomach. The largest lesion was 3 mm in largest dimension. Biopsies were taken with a cold forceps for Helicobacter pylori testing. One oozing cratered duodenal ulcer with a visible vessel was found in the duodenal bulb. The lesion was 8 mm in largest dimension. Area was successfully injected with 3 mL of a 1:10,000 solution of epinephrine for hemostasis. Fulguration to ablate the lesion by heater probe was successful. Impression: - Normal esophagus. - Small hiatus hernia. - Non-bleeding gastric ulcers with no stigmata of bleeding. Biopsied. - One oozing duodenal ulcer with a visible vessel. Injected. Treated with a heater probe. Recommendation: - [facility] to [facility] for [facility] care. - Advance diet as tolerated. - Continue present medications. - Await pathology results. Dru Altman DO 02/13/2017 12:56:17 PM This report has been signed electronically. Note Initiated On: 02/13/2017 12:25 PM I attest to the content of the Intraoperative Record and orders documented therein, exceptions below
--- NOTE | 2017-02-13 13:09 | Anesthesiology Progress Note ---
Anesthesia Post Op Note Date & Time Feb 13, 2017 at 13:09 Vital Signs Pain Intensity: 0.0 Vital Signs Past 12 Hours Date Time Temp Pulse Resp B/P (MAP) Pulse Ox O2 Delivery O2 Flow Rate FiO2 02/13/17 13:06 93 18 110/64 (79) 96 Room Air 02/13/17 12:56 91 18 106/74 (85) 100 Mask 3 02/13/17 12:48 88 20 109/71 (84) 99 Mask 3 02/13/17 12:19 37.1 102 20 115/89 97 Room Air 02/13/17 12:08 102 20 115/89 (98) 97 Room Air 02/13/17 11:40 36.9 94 20 112/78 (89) 95 Room Air 02/13/17 07:53 36.9 90 20 116/74 (88) 94 Room Air 02/13/17 07:50 Room Air 02/13/17 07:04 106 18 92 Room Air 02/13/17 04:15 36.5 95 20 99/67 (78) 95 Room Air 02/13/17 04:00 Room Air 02/13/17 02:51 116 114/79 (91) Notes Mental Status: alert / awake / arousable, participated in evaluation Pt Amnestic to Procedure: Yes Nausea / Vomiting: adequately controlled Pain: adequately controlled Airway Patency, RR, SpO2: stable & adequate BP & HR: stable & adequate Hydration State: stable & adequate Anesthetic Complications: no major complications apparent
--- NOTE | 2017-02-13 16:39 | Progress Note ---
Subjective Date of Service: Feb 13, 2017. Subjective Pt evaluation today including: conversation w/ patient, physical exam, chart review, lab review, review of studies onversation w/ patient, physical exam, chart review, lab review Patient reports feeling better today. No abdominal pain is noted today. D/W Nurse overnight, no PRBC were given to patient overnight. Also he had 1 BM of melanous stool. Problem List Medical Problems: (1) Dehydration Status: Acute (2) GI bleed Status: Acute (3) Hypomagnesemia Status: Acute (4) Hypotension Status: Acute Review of Systems ROS negative except for what is noted on HPI. All Other Systems: Reviewed and Negative Medications Current Inpatient Medications Medications (Trade) Dose Ordered Sig/Tapan Route Start Time Stop Time Status Last Admin Dose Admin Folic Acid (Folvite Tab) 1 mg DAILY PO 02/12/17 09:00 03/14/17 08:59 02/13/17 08:34 1 MG Azithromycin 250 mg/Dextrose 252.5 ml @ 125 mls/hr Q24H IV 02/12/17 22:00 02/16/17 21:59 02/13/17 21:32 125 MLS/HR Pantoprazole Sodium 40 mg/ Dextrose 100 ml @ 20 mls/hr Q5H IV 02/11/17 23:00 03/13/17 22:59 02/13/17 20:08 20 MLS/HR Albuterol/ Ipratropium (Duoneb) 3 ml Q6R INH 02/12/17 21:00 03/14/17 20:59 02/13/17 19:18 3 ML Albuterol/ Ipratropium (Duoneb) 3 ml Q3H PRN INH 02/12/17 19:00 03/14/17 18:59 Objective Vital Signs Date Time Temp Pulse Resp B/P (MAP) Pulse Ox O2 Delivery O2 Flow Rate FiO2 02/13/17 15:38 36.8 90 20 103/69 (80) 93 Room Air 02/13/17 14:15 72 18 96 Room Air 02/13/17 13:41 Room Air 02/13/17 13:16 93 18 108/77 (87) 94 Room Air 02/13/17 13:06 93 18 110/64 (79) 96 Room Air 02/13/17 12:56 91 18 106/74 (85) 100 Mask 3 02/13/17 12:48 88 20 109/71 (84) 99 Mask 3 02/13/17 12:19 37.1 102 20 115/89 97 Room Air 02/13/17 12:08 102 20 115/89 (98) 97 Room Air 02/13/17 11:40 36.9 94 20 112/78 (89) 95 Room Air 02/13/17 07:53 36.9 90 20 116/74 (88) 94 Room Air 02/13/17 07:50 Room Air 02/13/17 07:04 106 18 92 Room Air 02/13/17 04:15 36.5 95 20 99/67 (78) 95 Room Air 02/13/17 04:00 Room Air 02/13/17 02:51 116 114/79 (91) 02/12/17 23:59 Room Air 02/12/17 23:10 36.8 102 20 99/69 (79) 96 Room Air 02/12/17 20:00 Room Air 02/12/17 19:56 36.8 108 16 112/71 (85) 94 Room Air 02/12/17 18:57 84 18 92 Room Air Physical Exam General Appearance: WD/WN, no apparent distress Eyes: normal inspection ENT: normal ENT inspection Neck: supple, no adenopathy, thyroid normal Respiratory/Chest: chest non-tender, lungs clear, normal breath sounds, no respiratory distress Cardiovascular: regular rate, rhythm, no edema, no gallop, no JVD Abdomen: normal bowel sounds, non tender, soft Lymphatic: no adenopathy Laboratory Results Last 24 Hours Test 02/12/17 20:00 02/13/17 06:24 02/13/17 15:30 Hemoglobin 8.0 g/dL 7.5 g/dL 7.5 g/dL Hematocrit 22.9 % 21.0 % 21.0 % White Blood Count 5.20 K/uL Red Blood Count 2.21 M/uL Mean Corpuscular Volume 95.0 fL Mean Corpuscular Hemoglobin 33.9 pg Mean Corpuscular Hemoglobin Concent 35.7 g/dl Platelet Count 122 K/uL Mean Platelet Volume 10.7 fL Neutrophils (%) (Auto) 79.6 % Lymphocytes (%) (Auto) 12.9 % Monocytes (%) (Auto) 5.4 % Eosinophils (%) (Auto) 1.5 % Basophils (%) (Auto) 0.2 % Neutrophils # (Auto) 4.14 K/uL Lymphocytes # (Auto) 0.67 K/uL Monocytes # (Auto) 0.28 K/uL Eosinophils # (Auto) 0.08 K/uL Basophils # (Auto) 0.01 K/uL RDW Standard Deviation 52.3 fL RDW Coefficient of Variation 15.1 % Immature Granulocyte % (Auto) 0.4 % Immature Granulocyte # (Auto) 0.02 K/uL Nucleated RBC Absolute Count (auto) 0.07 K/uL Nucleated Red Blood Cells % 1.4 % Echinocytes 1+ Sodium Level 139 mmol/L Potassium Level 3.0 mmol/L Chloride Level 108 mmol/L Carbon Dioxide Level 24 mmol/L Anion Gap 7.0 mmol/L Blood Urea Nitrogen 8 mg/dl Creatinine 0.50 mg/dl Est Creatinine Clear Calc Drug Dose 197.6 ml/min Estimated GFR () 134.6 Estimated GFR (Non- 116.1 BUN/Creatinine Ratio 16.0 Random Glucose 80 mg/dl Calcium Level 6.8 mg/dl Assessment and Plan Anemia secondary to UPPER GI Bleed Likely secondary to nsaid use and prednisone. Patient will be placed on PPI drip. Patient will be placed on IVF. Patient H and H stable. EGD showed following:. Small hiatus hernia. - Non-bleeding gastric ulcers with no stigmata of bleeding. Biopsied. - One oozing duodenal ulcer with a visible vessel. Injected. Treated with a heater probe. Recommendation: - Return patient to [facility] for ongoing care. - Advance diet as tolerated. - Continue present medications. - Await pathology results. Acute renal failure likely secondary to first problem from GI bleed. Resolved. SOB resolved Hypertension Will continue to hold 3 medications lisinopril, HCTZ, Amlodipine given that patient presented with hypotension. Ambulatory dysfunction will refer to PT for tomorrow. Continued [facility] stay due to: ambulation difficulties, other (still requires IV protonix) Discharge planning: home
[2017-02-14] VITALS (18 sets, daily range): BP systolic 96–117; BP diastolic 64–82; PULSE 90–105; TEMP 36.7–37.9; O2SAT 92–97
[2017-02-14] MEDS ORDERED: ACETAMINOPHEN IV 650 MG in EMPTY BAG 0 ML IV PRN
[2017-02-14] MEDS: PANTOprazole INJ 40 MG in DEXTROSE 5% 100ML IV SCH ×5 (00:57→20:36)
[2017-02-14] MEDS: ALBUT/IPRATROP 3MG/0.5MG NEB 3 ML VIAL INH SCH ×4 (01:33→19:45)
[2017-02-14 08:25] LABS: MEAN CELL VOLUME 96.6 fL (80-100); MEAN CORPUSCULAR HEMOGLOBIN 31.9 pg (25-34); MEAN PLATELET VOLUME 9.6 fL (7.4-10.4); PLATELET COUNT 159 K/uL (130-400); RED BLOOD COUNT 2.07 M/uL (4.7-6.1); WHITE BLOOD COUNT 5.18 K/uL (4.8-10.8)
[2017-02-14 08:27] LABS: BUN/CREATININE RATIO 10.2 (10-20); CALCIUM 7.4 mg/dl (8.5-10.1); CREATININE 0.54 mg/dl (0.60-1.40); POTASSIUM 3.3 mmol/L (3.5-5.1)
[2017-02-14 08:36] LABS: COMPLETE YES; ECHINOCYTES 1+; HYPERSEGMENTED POLYS 1+; IG% 0.4 %; LYMPH % 20.7 %; LYMPH ABS # 1.07 K/uL (1.2-3.4); MONO % 4.6 %; NEUT % 73.3 %
--- NOTE | 2017-02-14 09:42 | Progress Note ---
Subjective Date of Service: Feb 14, 2017. Subjective Patient reports feeling a little tired today. Patient denies any SOB, chest pain , nausea, vomiting. Patient states that he is having difficulty sleeping in the hospital due to mulple interruptions of sleep from staff. Problem List Medical Problems: (1) Dehydration Status: Acute (2) GI bleed Status: Acute (3) Hypomagnesemia Status: Acute (4) Hypotension Status: Acute Review of Systems Constitutional: No fever, No chills Eyes: No worsening of vision, No eye pain ENT: No hearing loss, No unusual epistaxis Respiratory: No cough, No sputum Cardiac: No chest pain, No orthopnea Male : No dysuria, No urinary frequency Psychiatric: No depression symptoms All Other Systems: Reviewed and Negative Medications Current Inpatient Medications Medications (Trade) Dose Ordered Sig/Tapan Route Start Time Stop Time Status Last Admin Dose Admin Folic Acid (Folvite Tab) 1 mg DAILY PO 02/12/17 09:00 03/14/17 08:59 02/14/17 07:53 1 MG Azithromycin 250 mg/Dextrose 252.5 ml @ 125 mls/hr Q24H IV 02/12/17 22:00 02/16/17 21:59 02/13/17 21:32 125 MLS/HR Pantoprazole Sodium 40 mg/ Dextrose 100 ml @ 20 mls/hr Q5H IV 02/11/17 23:00 03/13/17 22:59 02/14/17 05:51 20 MLS/HR Albuterol/ Ipratropium (Duoneb) 3 ml Q6R INH 02/12/17 21:00 03/14/17 20:59 02/14/17 07:41 3 ML Albuterol/ Ipratropium (Duoneb) 3 ml Q3H PRN INH 02/12/17 19:00 03/14/17 18:59 Acetaminophen 650 mg/Empty Bag 65 ml @ 260 mls/hr Q6H PRN IV 02/14/17 00:00 03/16/17 00:00 02/14/17 01:09 260 MLS/HR Calcium Gluconate 1000 mg/Sodium Chloride 60 ml @ 240 mls/hr TODAY@0945 IV 02/14/17 09:45 02/14/17 11:00 Objective Vital Signs Date Time Temp Pulse Resp B/P (MAP) Pulse Ox O2 Delivery O2 Flow Rate FiO2 02/14/17 08:00 Room Air 02/14/17 07:44 36.8 97 18 105/73 (84) 97 Room Air 02/14/17 07:41 103 18 94 Room Air 02/14/17 04:00 36.9 101 18 96/64 (75) 92 02/14/17 04:00 Room Air 02/14/17 01:50 37.9 02/14/17 00:00 Room Air 02/13/17 23:30 38.2 108 18 106/73 (84) 93 Room Air 02/13/17 20:10 Room Air 02/13/17 20:04 37.4 110 20 94/59 (71) 90 Room Air 02/13/17 19:19 73 18 93 Room Air 02/13/17 16:00 Room Air 02/13/17 15:38 36.8 90 20 103/69 (80) 93 Room Air 02/13/17 14:15 72 18 96 Room Air 02/13/17 13:41 Room Air 02/13/17 13:16 93 18 108/77 (87) 94 Room Air 02/13/17 13:06 93 18 110/64 (79) 96 Room Air 02/13/17 12:56 91 18 106/74 (85) 100 Mask 3 02/13/17 12:48 88 20 109/71 (84) 99 Mask 3 02/13/17 12:19 37.1 102 20 115/89 97 Room Air 02/13/17 12:08 102 20 115/89 (98) 97 Room Air 02/13/17 11:40 36.9 94 20 112/78 (89) 95 Room Air Physical Exam General Appearance: WD/WN Neck: supple Respiratory/Chest: chest non-tender, lungs clear, normal breath sounds Cardiovascular: regular rate, rhythm, no edema, no gallop Abdomen: normal bowel sounds, non tender, soft Extremities: normal range of motion, non-tender Laboratory Results Last 24 Hours Test 02/13/17 15:30 02/14/17 07:10 Hemoglobin 7.5 g/dL 6.6 g/dL Hematocrit 21.0 % 20.0 % White Blood Count 5.18 K/uL Red Blood Count 2.07 M/uL Mean Corpuscular Volume 96.6 fL Mean Corpuscular Hemoglobin 31.9 pg Mean Corpuscular Hemoglobin Concent 33.0 g/dl Platelet Count 159 K/uL Mean Platelet Volume 9.6 fL Neutrophils (%) (Auto) 73.3 % Lymphocytes (%) (Auto) 20.7 % Monocytes (%) (Auto) 4.6 % Eosinophils (%) (Auto) 1.0 % Basophils (%) (Auto) 0.0 % Neutrophils # (Auto) 3.80 K/uL Lymphocytes # (Auto) 1.07 K/uL Monocytes # (Auto) 0.24 K/uL Eosinophils # (Auto) 0.05 K/uL Basophils # (Auto) 0.00 K/uL RDW Standard Deviation 53.0 fL RDW Coefficient of Variation 14.9 % Immature Granulocyte % (Auto) 0.4 % Immature Granulocyte # (Auto) 0.02 K/uL Hypersegmented Polys 1+ Echinocytes 1+ Sodium Level 137 mmol/L Potassium Level 3.3 mmol/L Chloride Level 104 mmol/L Carbon Dioxide Level 27 mmol/L Anion Gap 6.0 mmol/L Blood Urea Nitrogen 6 mg/dl Creatinine 0.54 mg/dl Est Creatinine Clear Calc Drug Dose 182.9 ml/min Estimated GFR () 130.4 Estimated GFR (Non- 112.5 BUN/Creatinine Ratio 10.2 Random Glucose 79 mg/dl Calcium Level 7.4 mg/dl Assessment and Plan Anemia secondary to UPPER GI Bleed Likely secondary to nsaid use and prednisone. Patient is PPI drip Added sucralfate. Patient H and H DECREASED TO BELOW 7, WILL TRANSFUSE. Discussed case with GI, states likely residual. Will contiue to monitor. Recheck H and H in afternoon. If continues to decrease may consider repeat EGD. EGD showed following:. Small hiatus hernia. - Non-bleeding gastric ulcers with no stigmata of bleeding. Biopsied. - One oozing duodenal ulcer with a visible vessel. Injected. Treated with a heater probe. Recommendation: - Return patient to hospital [facility] for ongoing care. - Advance diet as tolerated. - Continue present medications. - Await pathology results. Acute renal failure likely secondary to first problem from GI bleed. Resolved. SOB resolved Hypertension Will continue to hold 3 medications lisinopril, HCTZ, Amlodipine given that patient presented with hypotension. Ambulatory dysfunction PT ordered Continued [facility] stay due to: ambulation difficulties, other (still requires IV protonix) Discharge planning: home
[2017-02-14] MEDS ORDERED: CALCIUM GLUCONATE 10% 1,000 MG in SODIUM CHLORIDE 0.9% 50ML 50 ML IV SCH (09:45)
--- NOTE | 2017-02-14 09:59 | Gastroenterology Progress Note ---
Progress Note Date of Service: Feb 14, 2017 Subjective Pt evaluation today including: conversation w/ patient, physical exam, chart review, lab review, review of inpatient medication list Patient reports feeling well today. No abdominal pain, nausea or vomiting or other complaints status post EGD yesterday. Findings of clean-based gastric ulcer as well as duodenal ulcer with stigmata of bleeding status post hemostasis with heater probe and epinephrine. Continues PPI ggt. Hemoglobin did drop slightly from yesterday to 6.6 today. Review of Systems Constitutional: + fatigue Respiratory: No problem reported Cardiac: No problem reported Abdomen: + see HPI Medications Current Inpatient Medications Medications (Trade) Dose Ordered Sig/Tapan Route Start Time Stop Time Status Last Admin Dose Admin Folic Acid (Folvite Tab) 1 mg DAILY PO 02/12/17 09:00 03/14/17 08:59 02/14/17 07:53 1 MG Azithromycin 250 mg/Dextrose 252.5 ml @ 125 mls/hr Q24H IV 02/12/17 22:00 02/16/17 21:59 02/13/17 21:32 125 MLS/HR Pantoprazole Sodium 40 mg/ Dextrose 100 ml @ 20 mls/hr Q5H IV 02/11/17 23:00 03/13/17 22:59 02/14/17 05:51 20 MLS/HR Albuterol/ Ipratropium (Duoneb) 3 ml Q6R INH 02/12/17 21:00 03/14/17 20:59 02/14/17 07:41 3 ML Albuterol/ Ipratropium (Duoneb) 3 ml Q3H PRN INH 02/12/17 19:00 03/14/17 18:59 Acetaminophen 650 mg/Empty Bag 65 ml @ 260 mls/hr Q6H PRN IV 02/14/17 00:00 03/16/17 00:00 02/14/17 01:09 260 MLS/HR Calcium Gluconate 1000 mg/Sodium Chloride 60 ml @ 240 mls/hr TODAY@0945 IV 02/14/17 09:45 02/14/17 11:00 Objective Vital Signs Date Time Temp Pulse Resp B/P (MAP) Pulse Ox O2 Delivery O2 Flow Rate FiO2 02/14/17 08:00 Room Air 02/14/17 07:44 36.8 97 18 105/73 (84) 97 Room Air 02/14/17 07:41 103 18 94 Room Air 02/14/17 04:00 36.9 101 18 96/64 (75) 92 02/14/17 04:00 Room Air 02/14/17 01:50 37.9 02/14/17 00:00 Room Air 02/13/17 23:30 38.2 108 18 106/73 (84) 93 Room Air 02/13/17 20:10 Room Air 02/13/17 20:04 37.4 110 20 94/59 (71) 90 Room Air 02/13/17 19:19 73 18 93 Room Air 02/13/17 16:00 Room Air 02/13/17 15:38 36.8 90 20 103/69 (80) 93 Room Air 02/13/17 14:15 72 18 96 Room Air 02/13/17 13:41 Room Air 02/13/17 13:16 93 18 108/77 (87) 94 Room Air 02/13/17 13:06 93 18 110/64 (79) 96 Room Air 02/13/17 12:56 91 18 106/74 (85) 100 Mask 3 02/13/17 12:48 88 20 109/71 (84) 99 Mask 3 02/13/17 12:19 37.1 102 20 115/89 97 Room Air 02/13/17 12:08 102 20 115/89 (98) 97 Room Air 02/13/17 11:40 36.9 94 20 112/78 (89) 95 Room Air Physical Exam General Appearance: no apparent distress Eyes: EOMI ENT: hearing grossly normal Neck: supple Respiratory/Chest: no respiratory distress, + rhonchi Cardiovascular: regular rate, rhythm, no gallop, no murmur Abdomen: normal bowel sounds, non tender, soft Neurologic/Psych: alert, normal mood/affect, oriented x 3 Skin: warm/dry Laboratory Results Last 24 Hours Test 02/13/17 15:30 02/14/17 07:10 Hemoglobin 7.5 g/dL 6.6 g/dL Hematocrit 21.0 % 20.0 % White Blood Count 5.18 K/uL Red Blood Count 2.07 M/uL Mean Corpuscular Volume 96.6 fL Mean Corpuscular Hemoglobin 31.9 pg Mean Corpuscular Hemoglobin Concent 33.0 g/dl Platelet Count 159 K/uL Mean Platelet Volume 9.6 fL Neutrophils (%) (Auto) 73.3 % Lymphocytes (%) (Auto) 20.7 % Monocytes (%) (Auto) 4.6 % Eosinophils (%) (Auto) 1.0 % Basophils (%) (Auto) 0.0 % Neutrophils # (Auto) 3.80 K/uL Lymphocytes # (Auto) 1.07 K/uL Monocytes # (Auto) 0.24 K/uL Eosinophils # (Auto) 0.05 K/uL Basophils # (Auto) 0.00 K/uL RDW Standard Deviation 53.0 fL RDW Coefficient of Variation 14.9 % Immature Granulocyte % (Auto) 0.4 % Immature Granulocyte # (Auto) 0.02 K/uL Hypersegmented Polys 1+ Echinocytes 1+ Sodium Level 137 mmol/L Potassium Level 3.3 mmol/L Chloride Level 104 mmol/L Carbon Dioxide Level 27 mmol/L Anion Gap 6.0 mmol/L Blood Urea Nitrogen 6 mg/dl Creatinine 0.54 mg/dl Est Creatinine Clear Calc Drug Dose 182.9 ml/min Estimated GFR () 130.4 Estimated GFR (Non- 112.5 BUN/Creatinine Ratio 10.2 Random Glucose 79 mg/dl Calcium Level 7.4 mg/dl Assessment and Plan Patient is a 61 year old male with a history of RA on chronic corticosteroid and NSAID therapy admitted with heme positive stool, melena and symptomatic anemia with findings of clean-based gastric ulcers as well as duodenal ulceration with stigmata of bleeding status post hemostasis with Epinephrine and heater probe cauterization and slight decrease in H&H. 1. Continue PPI ggt for a total of 72 hours, then switch to Protonix 40 mg BID. 2. Recommend blood transfusion today. Suspect drop in hemoglobin is residual as he is not having any further melena. Continue to monitor. 3. Continue clear liquid diet today with advancement tomorrow as tolerated. 4. Will add Carafate 1 g ACHS for a total of 10 days. 5. Discussed with patient the risk of using OTC NSAIDs in combination with prescription NSAIDS and Prednisone. He will discuss ongoing treatment options for RA with his call person upon discharge. 6. Repeat EGD in 8 weeks to assess for mucosal healing. Agree with EDILBERTO Stoddard as above Patient feeling better, no BM's today at all Abd: Soft, NT, ND, +BS Continue PPI gtt for 72 hours, then twice daily PPI EGD as outpatient in 8 weeks
[2017-02-14] MEDS ORDERED: NURSING VERBAL MED ORDER ONE (10:00)
[2017-02-14] MEDS ORDERED: POTASSIUM CHLORIDE 10 MEQ TABCR PO ONE ×2 (10:00→22:00)
[2017-02-14] MEDS: SUCRALFATE 1 GM/10 ML UDC PO SCH ×3 (12:39→20:36)
[2017-02-14 16:28] LABS: HEMATOCRIT 21.7 % (42-52)
[2017-02-14] MEDS ORDERED: METHYLPREDNISOLONE IV 40 MG in SYRINGE 0 ML IV ONE (17:30)
--- NOTE | 2017-02-14 19:00 | DIAGNOSTIC IMAGING REPORT ---
CHEST ONE VIEW PORTABLE CLINICAL HISTORY: Shortness of breath COMPARISON STUDY: 02/12/2017 FINDINGS: The heart is normal in size. There is diffuse elevation of the interstitium. There is a more focal right basal airspace opacity, likely representing focal edema, although superimposed pneumonitis could appear similar. There is a possible subpulmonic right pleural effusion.[ Clinical and radiographic follow-up is recommended. IMPRESSION: 1. Interval development of diffuse elevation of the interstitium, likely secondary to congestive failure/fluid overload, although an interstitial inflammatory process could appear similar 2. Developing right basilar airspace opacities, likely represent focal edema although again a superimposed pneumonitis could appear similar. Electronically signed by: Elias Simpson M.D. 02/14/2017 6:59 PM Dictated Date/Time: 02/14/2017 6:57 PM
[2017-02-14] MEDS: AZITHROMYCIN IV 250 MG in DEXTROSE 5% 250ML 250 ML IV SCH (20:36)
[2017-02-14] MEDS: ZOLPIDEM TARTRATE 5 MG TAB PO PRN (22:03)
[2017-02-15] VITALS (8 sets, daily range): BP systolic 106–113; BP diastolic 72–79; PULSE 69–105; TEMP 36.5–37.1; O2SAT 93–96
[2017-02-15] MEDS: PANTOprazole INJ 40 MG in DEXTROSE 5% 100ML IV SCH ×5 (01:46→20:59)
[2017-02-15] MEDS: ALBUT/IPRATROP 3MG/0.5MG NEB 3 ML VIAL INH SCH ×4 (03:00→19:09)
[2017-02-15 06:46] LABS: HEMATOCRIT 23.4 % (42-52); IG% 0.3 %; LYMPH % 9.1 %; LYMPH ABS # 0.61 K/uL (1.2-3.4); MEAN CELL VOLUME 93.6 fL (80-100); MEAN CORPUSCULAR HEMOGLOBIN 31.2 pg (25-34); MEAN CORPUSCULAR HGB CONC 33.3 g/dl (32-36); MEAN PLATELET VOLUME 9.4 fL (7.4-10.4); MONO % 3.4 %; NEUT % 87.2 %; PLATELET COUNT 166 K/uL (130-400); WHITE BLOOD COUNT 6.69 K/uL (4.8-10.8)
[2017-02-15 07:29] LABS: ANISOCYTOSIS PRESENT; BUN/CREATININE RATIO 14.4 (10-20); CALCIUM 7.7 mg/dl (8.5-10.1); COMPLETE YES; CREATININE 0.5 mg/dl (0.60-1.40); HYPERSEGMENTED POLYS 1+; POTASSIUM 4.2 mmol/L (3.5-5.1)
[2017-02-15 07:45] LABS: ALB/GLOB RATIO 0.8 (0.9-2)
[2017-02-15] MEDS: METHYLPREDNISOLONE IV 40 MG in SYRINGE 0 ML IV SCH (07:48)
[2017-02-15] MEDS: SUCRALFATE 1 GM/10 ML UDC PO SCH ×4 (07:48→20:57)
--- NOTE | 2017-02-15 09:40 | Gastroenterology Progress Note ---
Progress Note Date of Service: Feb 15, 2017 Subjective Pt evaluation today including: conversation w/ patient, physical exam, lab review, review of studies, review of inpatient medication list Patient states he is feeling well from a GI standpoint. Denies any abdominal pain, nausea or vomiting or further melena. H&H remains stable. Continues PPI ggt. Continues clear liquid diet. Review of Systems Constitutional: No problem reported Respiratory: No problem reported Cardiac: No problem reported Abdomen: + see HPI Psych: No problem reported Medications Current Inpatient Medications Medications (Trade) Dose Ordered Sig/Tapan Route Start Time Stop Time Status Last Admin Dose Admin Folic Acid (Folvite Tab) 1 mg DAILY PO 02/12/17 09:00 03/14/17 08:59 02/15/17 07:48 1 MG Azithromycin 250 mg/Dextrose 252.5 ml @ 125 mls/hr Q24H IV 02/12/17 22:00 02/16/17 21:59 02/14/17 20:36 125 MLS/HR Pantoprazole Sodium 40 mg/ Dextrose 100 ml @ 20 mls/hr Q5H IV 02/11/17 23:00 03/13/17 22:59 02/15/17 06:29 20 MLS/HR Albuterol/ Ipratropium (Duoneb) 3 ml Q6R INH 02/12/17 21:00 03/14/17 20:59 02/15/17 07:36 3 ML Albuterol/ Ipratropium (Duoneb) 3 ml Q3H PRN INH 02/12/17 19:00 03/14/17 18:59 Acetaminophen 650 mg/Empty Bag 65 ml @ 260 mls/hr Q6H PRN IV 02/14/17 00:00 03/16/17 00:00 02/14/17 01:09 260 MLS/HR Sucralfate (Carafate Susp) 1 gm QID PO 02/14/17 13:00 03/16/17 12:59 02/15/17 07:48 1 GM Methylprednisolone Sodium Succinate 40 mg/Syringe 0.64 ml @ 1.5 mls/min DAILY IV 02/15/17 09:00 03/17/17 08:59 02/15/17 07:48 1.5 MLS/MIN Zolpidem Tartrate (Ambien Tab) 5 mg HS PRN PO 02/14/17 21:45 03/16/17 21:44 02/14/17 22:03 5 MG Objective Vital Signs Date Time Temp Pulse Resp B/P (MAP) Pulse Ox O2 Delivery O2 Flow Rate FiO2 02/15/17 08:00 Room Air 02/15/17 07:49 36.8 83 22 113/79 (90) 95 Room Air 02/15/17 07:36 69 20 94 Room Air 02/15/17 04:00 Room Air 02/15/17 03:50 36.7 92 18 111/78 (89) 95 Room Air 02/15/17 00:02 Room Air 02/14/17 23:10 36.8 95 18 102/71 (81) 94 Room Air 02/14/17 20:00 Room Air 02/14/17 19:45 98 20 96 Room Air 02/14/17 19:15 37.4 105 22 116/79 (91) 94 Room Air 02/14/17 16:00 96 Room Air 02/14/17 15:49 36.9 103 18 103/72 (82) 94 Room Air 02/14/17 14:20 98 22 96 Room Air 02/14/17 12:30 37.0 92 18 112/80 95 02/14/17 12:00 Room Air 02/14/17 12:00 104 20 117/82 97 02/14/17 11:33 36.9 96 18 101/74 (83) 95 Room Air 02/14/17 11:30 36.9 90 20 105/73 94 02/14/17 11:00 92 16 104/76 95 02/14/17 10:45 37.0 94 16 106/73 95 02/14/17 10:30 37.2 92 20 109/75 96 02/14/17 10:13 36.7 96 20 101/71 94 Physical Exam General Appearance: no apparent distress Eyes: EOMI Neck: supple Respiratory/Chest: + rhonchi Cardiovascular: regular rate, rhythm, no gallop, no murmur Abdomen: normal bowel sounds, non tender, soft Neurologic/Psych: alert, normal mood/affect, oriented x 3 Skin: warm/dry Laboratory Results Last 24 Hours Test 02/14/17 15:52 02/15/17 06:31 Hemoglobin 7.9 g/dL 7.8 g/dL Hematocrit 21.7 % 23.4 % White Blood Count 6.69 K/uL Red Blood Count 2.50 M/uL Mean Corpuscular Volume 93.6 fL Mean Corpuscular Hemoglobin 31.2 pg Mean Corpuscular Hemoglobin Concent 33.3 g/dl Platelet Count 166 K/uL Mean Platelet Volume 9.4 fL Neutrophils (%) (Auto) 87.2 % Lymphocytes (%) (Auto) 9.1 % Monocytes (%) (Auto) 3.4 % Eosinophils (%) (Auto) 0.0 % Basophils (%) (Auto) 0.0 % Neutrophils # (Auto) 5.83 K/uL Lymphocytes # (Auto) 0.61 K/uL Monocytes # (Auto) 0.23 K/uL Eosinophils # (Auto) 0.00 K/uL Basophils # (Auto) 0.00 K/uL RDW Standard Deviation 54.7 fL RDW Coefficient of Variation 16.3 % Immature Granulocyte % (Auto) 0.3 % Immature Granulocyte # (Auto) 0.02 K/uL Hypersegmented Polys 1+ Anisocytosis PRESENT Sodium Level 134 mmol/L Potassium Level 4.2 mmol/L Chloride Level 104 mmol/L Carbon Dioxide Level 25 mmol/L Anion Gap 5.0 mmol/L Blood Urea Nitrogen 7 mg/dl Creatinine 0.50 mg/dl Est Creatinine Clear Calc Drug Dose 197.5 ml/min Estimated GFR () 134.6 Estimated GFR (Non- 116.1 BUN/Creatinine Ratio 14.4 Random Glucose 137 mg/dl Calcium Level 7.7 mg/dl Total Bilirubin 0.8 mg/dl Aspartate Amino Transf (AST/SGOT) 15 U/L Alanine Aminotransferase (ALT/SGPT) 19 U/L Alkaline Phosphatase 57 U/L Pro-B-Type Natriuretic Peptide 6010 pg/ml Total Protein 4.6 gm/dl Albumin 2.0 gm/dl Globulin 2.6 gm/dl Albumin/Globulin Ratio 0.8 Assessment and Plan Patient is a 61 year old male with a history of RA on chronic corticosteroid and NSAID therapy admitted with heme positive stool, melena and symptomatic anemia with findings of clean-based gastric ulcers as well as duodenal ulceration with stigmata of bleeding status post hemostasis with Epinephrine and heater probe cauterization. 1. Continue PPI ggt for a total of 72 hours, then switch to Protonix 40 mg BID. 2. Advance diet as tolerated. 3. Continue Carafate 1 g ACHS for a total of 10 days. 4. Reinforced with patient the risk of using OTC NSAIDs in combination with prescription NSAIDS and Prednisone. He will discuss ongoing treatment options for RA with his correction officer upon discharge. 5. Repeat EGD in 8 weeks to assess for mucosal healing. Agree with EDILBERTO Stoddard as above Abd: Soft, NT, ND, +BS Patient feeling better Continue current therapy Repeat EGD in 8 weeks.
--- NOTE | 2017-02-15 17:09 | Progress Note ---
Subjective Date of Service: Feb 15, 2017. Subjective Patient reports feeling better, however, he continues to feel short of breath. His symptoms of dyspnea though is better than yesterday. Problem List Medical Problems: (1) Dehydration Status: Acute (2) GI bleed Status: Acute (3) Hypomagnesemia Status: Acute (4) Hypotension Status: Acute Review of Systems Constitutional: No fever, No chills Eyes: No worsening of vision Respiratory: No cough, No sputum Cardiac: No chest pain, No orthopnea Abdomen: No pain, No nausea Musculoskeletal: No joint pain Endo: No fatigue All Other Systems: Reviewed and Negative Medications Medications (Trade) Dose Ordered Sig/T[place] Route Start Time Stop Time Status Last Admin Dose Admin Methylprednisolone Sodium Succinate 40 mg/Syringe 0.64 ml @ 1.5 mls/min DAILY IV 02/15/17 09:00 03/17/17 08:59 02/15/17 07:48 1.5 MLS/MIN Furosemide 20 mg/ Syringe 2 ml @ 4 mls/min NOW ONCE IV 02/15/17 17:30 02/15/17 17:31 DC 02/15/17 18:13 4 MLS/MIN Objective Vital Signs Date Time Temp Pulse Resp B/P (MAP) Pulse Ox O2 Delivery O2 Flow Rate FiO2 02/15/17 16:15 Room Air 02/15/17 14:20 83 20 94 Room Air 02/15/17 12:00 Room Air 02/15/17 12:00 36.5 98 20 111/76 (88) 96 Room Air 02/15/17 08:00 Room Air 02/15/17 07:49 36.8 83 22 113/79 (90) 95 Room Air 02/15/17 07:36 69 20 94 Room Air 02/15/17 04:00 Room Air 02/15/17 03:50 36.7 92 18 111/78 (89) 95 Room Air 02/15/17 00:02 Room Air 02/14/17 23:10 36.8 95 18 102/71 (81) 94 Room Air 02/14/17 20:00 Room Air 02/14/17 19:45 98 20 96 Room Air 02/14/17 19:15 37.4 105 22 116/79 (91) 94 Room Air Physical Exam General Appearance: WD/WN, no apparent distress Neck: supple, no adenopathy, thyroid normal Respiratory/Chest: chest non-tender, no respiratory distress, + crackles Cardiovascular: regular rate, rhythm, no edema, no gallop Abdomen: normal bowel sounds, non tender, soft Extremities: normal range of motion, non-tender Laboratory Results Last 24 Hours Test 02/15/17 06:31 White Blood Count 6.69 K/uL Red Blood Count 2.50 M/uL Hemoglobin 7.8 g/dL Hematocrit 23.4 % Mean Corpuscular Volume 93.6 fL Mean Corpuscular Hemoglobin 31.2 pg Mean Corpuscular Hemoglobin Concent 33.3 g/dl Platelet Count 166 K/uL Mean Platelet Volume 9.4 fL Neutrophils (%) (Auto) 87.2 % Lymphocytes (%) (Auto) 9.1 % Monocytes (%) (Auto) 3.4 % Eosinophils (%) (Auto) 0.0 % Basophils (%) (Auto) 0.0 % Neutrophils # (Auto) 5.83 K/uL Lymphocytes # (Auto) 0.61 K/uL Monocytes # (Auto) 0.23 K/uL Eosinophils # (Auto) 0.00 K/uL Basophils # (Auto) 0.00 K/uL RDW Standard Deviation 54.7 fL RDW Coefficient of Variation 16.3 % Immature Granulocyte % (Auto) 0.3 % Immature Granulocyte # (Auto) 0.02 K/uL Hypersegmented Polys 1+ Anisocytosis PRESENT Sodium Level 134 mmol/L Potassium Level 4.2 mmol/L Chloride Level 104 mmol/L Carbon Dioxide Level 25 mmol/L Anion Gap 5.0 mmol/L Blood Urea Nitrogen 7 mg/dl Creatinine 0.50 mg/dl Est Creatinine Clear Calc Drug Dose 197.5 ml/min Estimated GFR () 134.6 Estimated GFR (Non- 116.1 BUN/Creatinine Ratio 14.4 Random Glucose 137 mg/dl Calcium Level 7.7 mg/dl Total Bilirubin 0.8 mg/dl Aspartate Amino Transf (AST/SGOT) 15 U/L Alanine Aminotransferase (ALT/SGPT) 19 U/L Alkaline Phosphatase 57 U/L Pro-B-Type Natriuretic Peptide 6010 pg/ml Total Protein 4.6 gm/dl Albumin 2.0 gm/dl Globulin 2.6 gm/dl Albumin/Globulin Ratio 0.8 Assessment and Plan Anemia secondary to UPPER GI Bleed Likely secondary to nsaid use and prednisone. Patient is PPI drip Added sucralfate. will monitor patient h and h. It has been stable. Discussed case with GI, states likely residual. Will continue to monitor. EGD showed following:. Small hiatus hernia. - Non-bleeding gastric ulcers with no stigmata of bleeding. Biopsied. - One oozing duodenal ulcer with a visible vessel. Injected. Treated with a heater probe. Recommendation: - Return patient to hospital [facility] for ongoing care. - Advance diet as tolerated. - Continue present medications. - Await pathology results. Acute renal failure likely secondary to first problem from GI bleed. Resolved. SOB likely from hypoalbuminemia Patient has pulmonary edema from her third spacing. will place patient on lasix today. Patient states that he has had sulfa drugs in the past like diuretics without a problem. Hypertension Will continue to hold 3 medications lisinopril, HCTZ, Amlodipine given that patient presented with hypotension. Ambulatory dysfunction PT ordered Continued [facility] stay due to: ambulation difficulties, other (still requires IV protonix) Discharge planning: home
[2017-02-15] MEDS ORDERED: FUROSEMIDE INJ 20 MG in SYRINGE 0 ML IV ONE (17:30)
--- NOTE | 2017-02-15 19:27 | DIAGNOSTIC IMAGING REPORT ---
CHEST ONE VIEW PORTABLE CLINICAL HISTORY: Abnormal chest x-ray. Follow-up study. Shortness of breath. COMPARISON STUDY: 02/14/2017 FINDINGS: The cardiac and mediastinal contours remain stable. There are improving bilateral interstitial opacities with resolving right basilar airspace opacities. The findings likely represent resolving congestive failure.[ IMPRESSION: Improving bilateral interstitial opacities, and improving right basilar airspace opacities. The findings likely represent resolving congestive failure Electronically signed by: Elias Simpson M.D. 02/15/2017 7:26 PM Dictated Date/Time: 02/15/2017 7:24 PM
[2017-02-15] MEDS: ZOLPIDEM TARTRATE 5 MG TAB PO PRN (20:57)
[2017-02-15] MEDS: AZITHROMYCIN IV 250 MG in DEXTROSE 5% 250ML 250 ML IV SCH (20:59)
[2017-02-16] MEDS: ALBUT/IPRATROP 3MG/0.5MG NEB 3 ML VIAL INH SCH ×3 (02:07→15:03)
[2017-02-16] MEDS: PANTOprazole INJ 40 MG in DEXTROSE 5% 100ML IV SCH ×2 (02:09→07:24)
[2017-02-16 04:19] VITALS: BP 109/76; PULSE 107; TEMP 36.8; O2SAT 93
[2017-02-16 06:31] LABS: BASO % 0.2 %; BASO ABS # 0.01 K/uL (0-0.2); HEMATOCRIT 22.4 % (42-52); IG% 0.3 %; LYMPH % 15.5 %; LYMPH ABS # 1.03 K/uL (1.2-3.4); MEAN CELL VOLUME 94.1 fL (80-100); MEAN CORPUSCULAR HEMOGLOBIN 31.5 pg (25-34); MEAN CORPUSCULAR HGB CONC 33.5 g/dl (32-36); MEAN PLATELET VOLUME 9.7 fL (7.4-10.4); MONO % 6.2 %; NEUT % 77.8 %; PLATELET COUNT 200 K/uL (130-400); RED BLOOD COUNT 2.38 M/uL (4.7-6.1); WHITE BLOOD COUNT 6.64 K/uL (4.8-10.8)
[2017-02-16 07:04] VITALS: PULSE 99; O2SAT 94
[2017-02-16 07:08] LABS: BUN/CREATININE RATIO 12.1 (10-20); CALCIUM 7.6 mg/dl (8.5-10.1); CREATININE 0.52 mg/dl (0.60-1.40); POTASSIUM 3.5 mmol/L (3.5-5.1)
[2017-02-16 07:13] LABS: ANISOCYTOSIS PRESENT; COMPLETE YES; HYPOCHROMIA PRESENT; POLYCHROMASIA 1+
[2017-02-16] MEDS: SUCRALFATE 1 GM/10 ML UDC PO SCH ×3 (07:22→15:39)
[2017-02-16 08:05] VITALS: BP 116/81; PULSE 112; TEMP 36.8; O2SAT 95
[2017-02-16] MEDS ORDERED: FUROSEMIDE INJ 40 MG in SYRINGE 0 ML IV ONE (08:30)
[2017-02-16] MEDS: METHYLPREDNISOLONE IV 40 MG in SYRINGE 0 ML IV SCH (08:57)
[2017-02-16] MEDS ORDERED: PANTOprazole SOD 40 MG TAB PO SCH (09:00)
[2017-02-16 11:12] VITALS: BP 124/88; PULSE 103; TEMP 37.1; O2SAT 90
[2017-02-16 12:25] LABS: HEMATOCRIT 24.7 % (42-52)
[2017-02-16] MEDS ORDERED: POTASSIUM CHLORIDE 20 MEQ TABCR PO ONE ×2 (13:30→15:00)
--- NOTE | 2017-02-16 14:32 | Discharge Instructions ---
Discharge Instructions Date of Service Feb 16, 2017. Admission Reason for Admission: Gi Bleed, Upper Gastrointestinal Bleed Discharge Discharge Diagnosis / Problem: GI bleed 2nd to Multiple Gastric ulcers caused ny NSAID use Discharge Goals Goal(s): Decrease discomfort, Improve function, Increase independence Activity Recommendations Activity Limitations: resume your previous activity Driving or Machine Use: no limitations . Instructions / Follow-Up Instructions / Follow-Up Follow up with Dr. Purdy within 1 week. F/U WITH LOT ATTENDANT REGARDING MEDICATIONS FOR ARTHRITIS Current Hospital Diet Patient's current hospital diet: Regular Diet Discharge Diet Recommended Diet: Regular Diet, Low Sodium Diet (2gm Na) Procedures Procedures Performed: EGD Pending Studies Studies pending at discharge: no Laboratory Results Last 24 Hours Test 02/16/17 05:58 02/16/17 12:12 White Blood Count 6.64 K/uL Red Blood Count 2.38 M/uL Hemoglobin 7.5 g/dL 8.5 g/dL Hematocrit 22.4 % 24.7 % Mean Corpuscular Volume 94.1 fL Mean Corpuscular Hemoglobin 31.5 pg Mean Corpuscular Hemoglobin Concent 33.5 g/dl Platelet Count 200 K/uL Mean Platelet Volume 9.7 fL Neutrophils (%) (Auto) 77.8 % Lymphocytes (%) (Auto) 15.5 % Monocytes (%) (Auto) 6.2 % Eosinophils (%) (Auto) 0.0 % Basophils (%) (Auto) 0.2 % Neutrophils # (Auto) 5.17 K/uL Lymphocytes # (Auto) 1.03 K/uL Monocytes # (Auto) 0.41 K/uL Eosinophils # (Auto) 0.00 K/uL Basophils # (Auto) 0.01 K/uL RDW Standard Deviation 56.0 fL RDW Coefficient of Variation 16.5 % Immature Granulocyte % (Auto) 0.3 % Immature Granulocyte # (Auto) 0.02 K/uL Polychromasia 1+ Hypochromasia PRESENT Anisocytosis PRESENT Sodium Level 134 mmol/L Potassium Level 3.5 mmol/L Chloride Level 101 mmol/L Carbon Dioxide Level 27 mmol/L Anion Gap 6.0 mmol/L Blood Urea Nitrogen 6 mg/dl Creatinine 0.52 mg/dl Est Creatinine Clear Calc Drug Dose 187.4 ml/min Estimated GFR () 132.5 Estimated GFR (Non- 114.3 BUN/Creatinine Ratio 12.1 Random Glucose 75 mg/dl Calcium Level 7.6 mg/dl Medical Emergencies . Who to Call and When: Medical Emergencies: If at any time you feel your situation is an emergency, please call 911 immediately. . Non-Emergent Contact Non-Emergency issues call your: Primary Care Provider dark stools shortness of breath . "Provider Documentation" section prepared by Warren Penaloza. . VTE Core Measure Inpt VTE Proph given/why not?: Ji Browning, SCD's
[2017-02-16] MEDS ORDERED: MCRK20 OR (14:39)
[2017-02-16 14:45] VITALS: BP 124/88; PULSE 103; TEMP 37.1; O2SAT 90
[2017-02-16 15:03] VITALS: PULSE 99; O2SAT 94
[2017-02-16] MEDS ORDERED: FUROSEMIDE INJ 20 MG in SYRINGE 0 ML IV SCH (15:15)
[2017-02-17] MEDS ORDERED: FUROSEMIDE INJ 20 MG in SYRINGE 0 ML IV SCH (15:15)
--- NOTE | 2017-03-13 10:21 | Discharge Summary ---
Discharge Summary Date of Service Mar 13, 2017. Discharge Summary Admission Date: Feb 11, 2017 at 19:18 Discharge Date: Feb 16, 2017 Discharge Disposition: Home Principal Diagnosis: Gastric Ulcers secondary to NSAID use Problems/Secondary Diagnoses: dehydration Immunizations: Have You Had Influenza Vaccine: Unknown History of Tetanus Vaccine?: Unknown History of Pneumococcal: Unknown History of Hepatitis B Vaccine: Unknown Procedures: DICTATED BY: Dru Altman D.O. Procedure Date: 02/13/2017 12:25 PM Procedure: Upper GI endoscopy Indications: Acute post hemorrhagic anemia, Melena Medicines: Monitored Anesthesia Care Complications: No immediate complications. Estimated Blood Loss: Estimated blood loss: none. Procedure: Pre-Anesthesia Assessment: - Prior to the procedure, a History and Physical was performed, and patient medications and allergies were reviewed. The patient's tolerance of previous anesthesia was also reviewed. The risks and benefits of the procedure and the sedation options and risks were discussed with the patient. All questions were answered, and informed consent was obtained. Prior Anticoagulants: The patient has taken no previous anticoagulant or antiplatelet agents. ASA Grade Assessment: IV - A patient with severe systemic disease that is a constant threat to life. After reviewing the risks and benefits, the patient was deemed in satisfactory condition to undergo the procedure. After obtaining informed consent, the endoscope was passed under direct vision. Throughout the procedure, the patient's blood pressure, pulse, and oxygen saturations were monitored continuously. The scope was introduced through the mouth, and advanced to the second part of duodenum. The upper GI endoscopy was accomplished without difficulty. The patient tolerated the procedure well. Findings: The examined esophagus was normal. A small hiatus hernia was present. Many non-bleeding cratered gastric ulcers with no stigmata of bleeding were found in the entire examined stomach. The largest lesion was 3 mm in largest dimension. Biopsies were taken with a cold forceps for Helicobacter pylori testing. One oozing cratered duodenal ulcer with a visible vessel was found in the duodenal bulb. The lesion was 8 mm in largest dimension. Area was successfully injected with 3 mL of a 1:10,000 solution of epinephrine for hemostasis. Fulguration to ablate the lesion by heater probe was successful. Impression: - Normal esophagus. - Small hiatus hernia. - Non-bleeding gastric ulcers with no stigmata of bleeding. Biopsied. - One oozing duodenal ulcer with a visible vessel. Injected. Treated with a heater probe. Recommendation: - Return patient to [facility] for ongoing care. - Advance diet as tolerated. - Continue present medications. - Await pathology results. Dru Altman, 02/13/2017 12:56:17 PM This report has been signed electronically. Note Initiated On: 02/13/2017 12:25 PM I attest to the content of the Intraoperative Record and orders documented therein, exceptions below Dictated: 02/13/17 1225 Signed: 02/13/17 1256 Consultations: Gastro: Final Analysis and plan Assessment and Plan Patient is a 61 year old male with a history of RA on chronic corticosteroid and NSAID therapy admitted with heme positive stool, melena and symptomatic anemia with findings of clean-based gastric ulcers as well as duodenal ulceration with stigmata of bleeding status post hemostasis with Epinephrine and heater probe cauterization. 1. Continue PPI ggt for a total of 72 hours, then switch to Protonix 40 mg BID. 2. Advance diet as tolerated. 3. Continue Carafate 1 g ACHS for a total of 10 days. 4. Reinforced with patient the risk of using OTC NSAIDs in combination with prescription NSAIDS and Prednisone. He will discuss ongoing treatment options for RA with his mandolin repairer upon discharge. 5. Repeat EGD in 8 weeks to assess for mucosal healing. Agree with EDILBERTO Stoddard as above Abd: Soft, NT, ND, +BS Patient feeling better Continue current therapy Repeat EGD in 8 weeks. Medication Reconciliation New Medications: Potassium Chloride (Klor-Con M20) 20 Meq Tabcr 1 TAB OR DAILY for 7 Days, #7 TAB 0 Refills Continued Medications: Folic Acid (Folvite) 1 Mg Tab 1 MG PO DAILY, TAB Hydrochlorothiazide (Hctz) 25 Mg Tab 25 MG PO DAILY, TAB Prednisone (Prednisone) 10 Mg Tab 10 MG PO DAILY, TAB Discontinued Medications: Amlodipine (Norvasc) 5 Mg Tab 5 MG PO DAILY, TAB Celecoxib (Celebrex) 100 Mg Cap 200 MG PO DAILY, CAP Lisinopril (Zestril) 40 Mg Tab 40 MG PO DAILY, TAB Discharge Exam Review of Systems: Constitutional: No fever, No chills Respiratory: No cough, No sputum, No wheezing Cardiovascular: No chest pain, No orthopnea Abdomen: No pain, No nausea, No vomiting Musculoskeletal: No joint pain, No muscle pain Neurologic: No memory loss, No weakness Physical Exam: General Appearance: WD/WN, no apparent distress Neck: supple, no adenopathy, thyroid normal Respiratory/Chest: chest non-tender, lungs clear, normal breath sounds Cardiovascular: regular rate, rhythm, no edema, no gallop Abdomen / GI: normal bowel sounds, non tender, soft, no organomegaly Extremities: normal inspection, no calf tenderness Skin: normal color Lymphatic: no adenopathy Hospital Course History & Physical Date & Time of Service: Feb 11, 2017 at 19:32 Chief Complaint: Hypoxia, Hypotension Primary Care Physician: Patrick Purdy M.D. History of Present Illness Source: patient 61 year old male who comes from [facility] from [facility]. Patient reports that this past month he has been having loose dark tarry stools. And has been feeling fatigue on and off during this time. His step daughter who recently moved in with him has noticed a difference and recommended that e go to the hosptal. He went to [facility] last week (Past Saturday). And was hospitalized for dehydration and hypotension. He was seen in the ICU. After 5 days, patient signed out AMA as he felt that they did not get to the bottom of his problem. Today, patient felt lightheaded and felt like his vision became altered as he can only see white. He came to [facility] wo recommended him to go to the ER. In the ER, he was found to have heme postive occult blood and hypotension. Admission was called after IV fluids and PPI drip was called. Patient states that at home prior to admission, he was taking prednsione 10 mg every other day, but tis increased to 10mg daily of prednisone after being seen in [place]. He also takes intermittent NSAIDS OTC and celebrex. Past Medical/Surgical History Only one hospitalization noted in HPI. Hypertension Likely Rheumatoid Arthritis Family History noncontributory Social History Smoking Status: Current Every Day Smoker (smokes 1 pack lasts one week) Smokeless Tobacco Use: No Alcohol Use: socially Drug Use: none Marital Status: , Housing status: lives with family (step daughter) Occupational Status: retired Immunizations History of Influenza Vaccine: Unknown History of Tetanus Vaccine?: Unknown History of Pneumococcal: Unknown History of Hepatitis B Vaccine: Unknown Multi-Drug Resistant Organisms History of MDRO: No Allergies Coded Allergies: Sulfa Drugs (Verified Allergy, Unknown, 9/11/17) Home Medications Scheduled Amlodipine (Norvasc), 5 MG PO DAILY Celecoxib (Celebrex), 200 MG PO DAILY Folic Acid (Folvite), 1 MG PO DAILY Hydrochlorothiazide (Hctz), 25 MG PO DAILY Lisinopril (Zestril), 40 MG PO DAILY Prednisone (Prednisone), 10 MG PO DAILY Review of Systems Constitutional: No fever, No chills, No sweats, No weakness Eyes: + worsening of vision, No eye pain ENT: No hearing loss, No unusual epistaxis, No nasal symptoms, No sore throat, No tinnitus, No dental problems, No trouble swallowing, No problem reported Respiratory: No cough, No sputum, No wheezing, No shortness of breath, No dyspnea on exertion, No dyspnea at rest, No hemoptysis, No problem reported Cardiovascular: No chest pain, No orthopnea, No PND, No edema, No claudication , No palpitations, No problem reported Abdomen: + diarrhea, + GI bleeding, No pain, No nausea, No vomiting, No constipation, No problem reported Genitourinary - Male: No hematuria, No dysuria, No urinary frequency, No urinary urgency Neurologic: + balance problems, No memory loss Psychiatric: No depression symptoms, No anhedonism Endocrine: + fatigue, No excessive thirst, No excessive urination Hematologic / Lymphatic: No abnormal bleeding/bruising, No clotting problems, No swollen lymph nodes, No night sweats Integumentary: No rash, No itch Allergic / Immunologic: No environmental allergies, No seasonal allergies, No food allergies Physical Exam Vital Signs Date Time Temp Pulse Resp B/P (MAP) Pulse Ox O2 Delivery O2 Flow Rate FiO2 02/11/17 17:25 84 24 102/74 98 Room Air 02/11/17 16:07 87 20 102/69 98 Room Air 02/11/17 15:17 106 02/11/17 15:07 36.7 108 20 89/57 98 Room Air 02/11/17 15:07 98 Room Air General Appearance: WD/WN, no apparent distress Head: normocephalic, atraumatic Eyes: normal inspection, PERRL, EOMI ENT: normal ENT inspection, hearing grossly normal Neck: supple, no adenopathy, thyroid normal, no JVD Respiratory/Chest: chest non-tender, lungs clear, normal breath sounds, no respiratory distress, no accessory muscle use Cardiovascular: regular rate, rhythm, no edema, no gallop, no JVD, no murmur Abdomen/GI: normal bowel sounds, non tender, soft, no organomegaly, no pulsatile mass Back: normal inspection, no CVA tenderness Extremities/Musculoskelatal: normal inspection, no calf tenderness, normal capillary refill, no pedal edema Neurologic/Psych: supervisor buffing and pasting II-XII nml as tested, no motor/sensory deficits, alert, normal mood/affect, oriented x 3 Skin: normal color, warm/dry, no rash Lymphatic: no adenopathy Diagnostics Laboratory Results Results Past 24 Hours Test 02/11/17 14:37 02/11/17 15:15 02/11/17 16:48 Range/Units White Blood Count 7.23 4.8-10.8 K/uL Red Blood Count 2.69 4.7-6.1 M/uL Hemoglobin 8.9 14.0-18.0 g/dL Hematocrit 26.8 42-52 % Mean Corpuscular Volume 99.6 80-100 fL Mean Corpuscular Hemoglobin 33.1 25-34 pg Mean Corpuscular Hemoglobin Concent 33.2 32-36 g/dl Platelet Count 165 130-400 K/uL Mean Platelet Volume 10.7 7.4-10.4 fL Neutrophils (%) (Auto) 88.0 % Lymphocytes (%) (Auto) 5.9 % Monocytes (%) (Auto) 5.0 % Eosinophils (%) (Auto) 0.8 % Basophils (%) (Auto) 0.0 % Neutrophils # (Auto) 6.36 1.4-6.5 K/uL Lymphocytes # (Auto) 0.43 1.2-3.4 K/uL Monocytes # (Auto) 0.36 0.11-0.59 K/uL Eosinophils # (Auto) 0.06 0-0.5 K/uL Basophils # (Auto) 0.00 0-0.2 K/uL RDW Standard Deviation 51.2 36.4-46.3 fL RDW Coefficient of Variation 14.2 11.5-14.5 % Immature Granulocyte % (Auto) 0.3 % Immature Granulocyte # (Auto) 0.02 0.00-0.02 K/uL Red Blood Cell Morphology Unremarkable Prothrombin Time 15.9 9.0-12.0 SECONDS Prothromb Time International Ratio 1.5 0.9-1.1 Activated Partial Thromboplast Time 28.8 21.0-31.0 SECONDS Partial Thromboplastin Ratio 1.1 Sodium Level 138 136-145 mmol/L Potassium Level 3.4 3.5-5.1 mmol/L Chloride Level 103 98-107 mmol/L Carbon Dioxide Level 23 21-32 mmol/L Anion Gap 12.0 3-11 mmol/L Blood Urea Nitrogen 12 7-18 mg/dl Creatinine 1.10 0.60-1.40 mg/dl Est Creatinine Clear Calc Drug Dose 90.1 ml/min Estimated GFR () 82.9 Estimated GFR (Non- 71.6 BUN/Creatinine Ratio 11.1 10-20 Random Glucose 134 70-99 mg/dl Calcium Level 8.1 8.5-10.1 mg/dl Magnesium Level 1.3 1.8-2.4 mg/dl Total Bilirubin 0.9 0.2-1 mg/dl Aspartate Amino Transf (AST/SGOT) 23 15-37 U/L Alanine Aminotransferase (ALT/SGPT) 31 12-78 U/L Alkaline Phosphatase 71 45-117 U/L Total Creatine Kinase 29 39-308 U/L Troponin I 0.016 0-0.045 ng/ml Total Protein 5.2 6.4-8.2 gm/dl Albumin 2.3 3.4-5.0 gm/dl Globulin 2.9 2.5-4.0 gm/dl Albumin/Globulin Ratio 0.8 0.9-2 Thyroid Stimulating Hormone (TSH) 2.530 0.300-4.500 uIu/ml Lactic Acid Level 4.4 0.4-2.0 mmol/L Urine Color ORANGE Urine Appearance CLEAR CLEAR Urine pH 7.5 4.5-7.5 Urine Specific Kane 1.021 1.000-1.030 Urine Protein NEG NEG Urine Glucose (UA) 2+ NEG Urine Ketones NEG NEG Urine Occult Blood NEG NEG Urine Nitrite NEG NEG Urine Bilirubin NEG NEG Urine Urobilinogen NEG NEG Urine Leukocyte Esterase TRACE NEG Urine WBC (Auto) 1-5 0-5 /hpf Urine RBC (Auto) 0-4 0-4 /hpf Urine Hyaline Casts (Auto) 5-10 0-5 /lpf Urine Epithelial Cells (Auto) >30 0-5 /lpf Urine Bacteria (Auto) NEG NEG Urine Renal Epithelial Cells 0-5 0-5 /lpf Microbiology Results 02/11/17 Blood Culture, Received Pending 02/11/17 Blood Culture, Received Pending Diagnostic Radiology CHEST ONE VIEW PORTABLE CLINICAL HISTORY: Altered mental status. Weakness. COMPARISON STUDY: No previous studies for comparison. FINDINGS: The heart is normal in size. Underlying emphysema is suspected. There is no acute parenchymal consolidation. There is no failure. There are no pleural effusions.[ IMPRESSION: AP portable study. No acute findings. Electronically signed by: Elias Simpson M.D. 02/11/2017 3:45 PM EKG ID:[id number] 11-FEB-2017 15:38:13 [facility] Poor data quality, interpretation may be adversely affected Normal sinus rhythm Incomplete right bundle branch block Normal ECG No previous ECGs available Confirmed by Clive Nam ([id number]) on 02/11/2017 4:57:27 PM 25mm/s 10mm/mV 150Hz 8.0 SP2 12SL 241 MARCELL: 3 Referred by: Referred Self Confirmed By: Clive Nam Vent. rate 97 BPM CO interval 118 ms QRS duration 88 ms QT/QTc 396/502 ms P-R-T axes 56 28 52 Normal EKG Impression Assessment and Plan Anemia secondary to UPPER GI Bleed Likely secondary to nsaid use and prednisone. Patient will be placed on PPI drip. Patient will be placed on IVF. GI consulted for likely upper endoscopy. Currently vitals stable and clinicaly stable, will admit to telemetry floor. Acute renal failure likely secondary to first problem from GI bleed. Patient received about 2 liters fluid in ER. Will continue IVF. Hypertension Will hold 3 medications lisinopril, HCTZ, Amlodipine given that patient presented with hypotension and requires intravenous fluids. Level of Care Telemetry Advanced Directives Existing Advance Directive: No Existing Living Will: No Existing Power of It Service Technician: No (Patient would like to have step daughter as power of brusher operator) Existing Health Care Proxy: No Resuscitation Status DO NOT RESUSCITATE VTE Prophylaxis VTE Risk Assessment Done? Y/N: Yes Risk Level: Moderate Given or contraindicated: T.E.D. Stockings, SCD's Social Service Consult None Apply <Electronically signed by Warren Penaloza M.D.> Signed: 02/12/17 1036 Signed: Hospital course Patient was on PPI drip for 72 hours. Then switched to PO PPI BID Anemia secondary to UPPER GI Bleed Likely secondary to nsaid use and prednisone. Hemoglobin has been stable. EGD showed following:. Small hiatus hernia. - Non-bleeding gastric ulcers with no stigmata of bleeding. Biopsied. - One oozing duodenal ulcer with a visible vessel. Injected. Treated with a heater probe. Acute renal failure likely secondary to first problem from GI bleed. Resolved. SOB likely from hypoalbuminemia Patient has pulmonary edema from her third spacing. Resolved after lasix use. will resume home thiazides Hypertension BP has been controlled. will resume thiazides. stopped Kareem inhibitor and norvasc. Total Time Spent: Greater than 30 minutes This includes examination of the patient, discharge planning, medication reconciliation, and communication with other providers. Discharge Instructions Please refer to the electronic Patient Visit Report (Discharge Instructions) for additional information. Follow-Up f.u with PCP in 1 week. Additional Copies To Patrick Purdy M.D.
== END 2017-02-16 16:18 | disposition home or self-care (01) | DRG 813 ==
LOC: EDBD 14:54 → C.EDB 14:56 → C.2T 19:18 → ENRESERV 19:52
PROVIDERS: ADMIT Internal Medicine Sports Medicine; ATTEND Internal Medicine Pulmonary Disease
PROC: 0DB68ZX Excision of Stomach, Via Natural or Artificial Opening Endoscopic, Diagnostic (ICD-10-PCS; principal; 2017-02-13 12:02)
PROC: 3E0G8GC Introduction of Other Therapeutic Substance into Upper GI, Via Natural or Artificial Opening Endoscopic (ICD-10-PCS; principal; 2017-02-13 12:02)
DX: D68.32 Hemorrhagic disorder due to extrinsic circulating anticoagulants (principal); K26.4 Chronic or unspecified duodenal ulcer with hemorrhage; K25.9 Gastric ulcer, unspecified as acute or chronic, without hemorrhage or perforation; D62 Acute posthemorrhagic anemia; N17.9 Acute kidney failure, unspecified; K92.1 Melena; E83.42 Hypomagnesemia; E86.0 Dehydration; R09.02 Hypoxemia; K44.9 Diaphragmatic hernia without obstruction or gangrene; I10 Essential (primary) hypertension; M06.9 Rheumatoid arthritis, unspecified; F17.210 Nicotine dependence, cigarettes, uncomplicated; Z88.2 Allergy status to sulfonamides; Z79.52 Long term (current) use of systemic steroids; Z20.89 Contact with and (suspected) exposure to other communicable diseases; T38.0X5A Adverse effect of glucocorticoids and synthetic analogues, initial encounter; Y92.019 Unspecified place in single-family (private) house as the place of occurrence of the external cause; T39.95XA Adverse effect of unspecified nonopioid analgesic, antipyretic and antirheumatic, initial encounter; E88.09 Other disorders of plasma-protein metabolism, not elsewhere classified

== ENCOUNTER 2017-06-26 18:24 | Emergency (ER) | payer OTHER ==
[~2017-06-26] VITALS: Ht 185.4 cm; Wt 105.2 kg
[~2017-06-26 18:24] MED LIST: FOLI1TAB8 PO; HYDR25TA4 PO; MCRK20 OR; PRED10TA PO
[2017-06-26 18:30] VITALS: TEMP 36.8; Ht 185.4 cm; Wt 105.2 kg
[2017-06-26] MEDS ORDERED: METOCLOPRAMIDE HCL INJ 5 MG/ML 2 ML VIAL IV STA (19:23)
[2017-06-26] MEDS ORDERED: DiphenhydrAMINE HCL 50 MG/ML VIAL IV STA (19:23)
[2017-06-26] MEDS ORDERED: ACETAMINOPHEN 500 MG TAB PO STA (19:23)
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
[2017-06-26 19:37] LABS: BASO % 0.1 %; BASO ABS # 0.01 K/uL (0-0.2); EOS % 0.1 %; EOS ABS # 0.02 K/uL (0-0.5); HEMOGLOBIN 16.6 g/dL (14.0-18.0); IG# 0.08 K/uL (0.00-0.02); LYMPH % 9.8 %; LYMPH ABS # 1.32 K/uL (1.2-3.4); MEAN CELL VOLUME 96.8 fL (80-100); MEAN CORPUSCULAR HEMOGLOBIN 33.5 pg (25-34); MEAN CORPUSCULAR HGB CONC 34.6 g/dl (32-36); MEAN PLATELET VOLUME 10.2 fL (7.4-10.4); MONO % 7.1 %; MONO ABS # 0.96 K/uL (0.11-0.59); NEUT % 82.3 %; NEUT ABS # 11.04 K/uL (1.4-6.5); PLATELET COUNT 346 K/uL (130-400); RED CELL DISTRIBUTION WIDTH CV 13.8 % (11.5-14.5); RED CELL DISTRIBUTION WIDTH SD 48.5 fL (36.4-46.3); WHITE BLOOD COUNT 13.43 K/uL (4.8-10.8)
[2017-06-26 19:44] LABS: CALCIUM 9.4 mg/dl (8.5-10.1); CREATININE 1.28 mg/dl (0.60-1.40); POTASSIUM 3.9 mmol/L (3.5-5.1)
[2017-06-26 19:48] LABS: PTT PATIENT 25.3 SECONDS (21.0-31.0)
[2017-06-26] MEDS ORDERED: CYCL10TA6 PO (19:57)
[2017-06-26] MEDS ORDERED: TRAM-10 PO (19:57)
[2017-06-26] MEDS ORDERED: HYDR-3983 PO (19:57)
--- NOTE | 2017-06-26 20:23 | DIAGNOSTIC IMAGING REPORT ---
CT SCAN OF THE BRAIN WITHOUT IV CONTRAST CLINICAL HISTORY: Headache. COMPARISON STUDY: No priors. TECHNIQUE: Unenhanced axial CT scan of the brain is performed from the vertex to the skull base. A dose lowering technique was utilized adhering to the principles of ALARA. CT DOSE: 749.40 mGy.cm FINDINGS: Brain parenchyma: There are age-related involutional changes noting [id number] patchy subcortical and periventricular microangiopathic change. There is no hemorrhage, mass effect, or evidence of acute territorial ischemia by CT criteria. Anthony-white matter is preserved. No extra-axial fluid collection is seen. Ventricles, sulci, cisterns: Prominent secondary to involutional change. Intracranial vasculature: There is atherosclerotic calcification of the cavernous carotid and vertebral arteries. Calvarium: Unremarkable. Sinuses and mastoids: The visualized paranasal sinuses are clear. There is a right mastoid effusion. The left mastoid air cells are well pneumatized. Orbits: The bony orbits are grossly intact. There are bilateral ocular lens implants. IMPRESSION: There is no hemorrhage, mass effect, or evidence of acute territorial ischemia by CT criteria. Electronically signed by: Thanh Bradshaw M.D. 06/26/2017 8:22 PM Dictated Date/Time: 06/26/2017 8:20 PM
[2017-06-26] MEDS ORDERED: KETOROLAC TROMETHAMINE 30 MG/ML VIAL IV STA (20:46)
[2017-06-26] MEDS ORDERED: DEXAMETHASONE **PF** INJ 10 MG/ML VIAL IM ONE (21:00)
[2017-06-26] MEDS ORDERED: TRAM-453 PO (22:05)
[2017-06-26 22:23] VITALS: BP 156/100; PULSE 102; O2SAT 93
== END 2017-06-26 22:25 | disposition home or self-care (01) ==
LOC: C.EDB 18:25 → C.EDC 22:25
DX: G43.909 Migraine, unspecified, not intractable, without status migrainosus (principal); S09.90XA Unspecified injury of head, initial encounter; R51 Headache; X58.XXXA Exposure to other specified factors, initial encounter; I12.9 Hypertensive chronic kidney disease with stage 1 through stage 4 chronic kidney disease, or unspecified chronic kidney disease; N17.9 Acute kidney failure, unspecified; F17.210 Nicotine dependence, cigarettes, uncomplicated; M06.9 Rheumatoid arthritis, unspecified

== ENCOUNTER 2017-07-02 13:39 | Inpatient (IN) | payer OTHER ==
[~2017-07-02] VITALS: Ht 185.4 cm; Wt 100.0 kg
[~2017-07-02 13:39] MED LIST changes: +CYCL10TA6 PO; +HYDR-3983 PO; -MCRK20 OR; +TRAM-10 PO; +TRAM-453 PO
[2017-07-02] MEDS ORDERED: SODIUM CHLORIDE 0.9% 1000ML 1,000 ML IV STA (13:58)
[2017-07-02] MEDS ORDERED: PIPERACILLIN/TAZOBACTAM 4.5 GM/100ML D5W IV STA (13:58)
[2017-07-02] MEDS ORDERED: VANCOMYCIN INJ 2,000 MG in SODIUM CHLORIDE 0.9% 500ML 500 ML IV STA (13:58)
[2017-07-02] MEDS ORDERED: DEXAMETHASONE **PF** INJ 10 MG/ML VIAL IV ONE (14:00)
[2017-07-02] MEDS ORDERED: OPTIRAY 320 IV PRN (14:15)
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
[2017-07-02 14:35] LABS: BASO % 0.5 %; BASO ABS # 0.04 K/uL (0-0.2); EOS % 0.6 %; EOS ABS # 0.05 K/uL (0-0.5); HEMATOCRIT 50.5 % (42-52); HEMOGLOBIN 17.8 g/dL (14.0-18.0); IG# 0.06 K/uL (0.00-0.02); LYMPH % 12.8 %; LYMPH ABS # 1.05 K/uL (1.2-3.4); MEAN CELL VOLUME 95.1 fL (80-100); MEAN CORPUSCULAR HEMOGLOBIN 33.5 pg (25-34); MEAN CORPUSCULAR HGB CONC 35.2 g/dl (32-36); MEAN PLATELET VOLUME 10.7 fL (7.4-10.4); MONO % 6.8 %; MONO ABS # 0.56 K/uL (0.11-0.59); NEUT % 78.6 %; NEUT ABS # 6.43 K/uL (1.4-6.5); NUCLEATED RED BLOOD CELL ABS 0.06 K/uL (0-0); PLATELET COUNT 145 K/uL (130-400); RED CELL DISTRIBUTION WIDTH CV 14.2 % (11.5-14.5); RED CELL DISTRIBUTION WIDTH SD 48.9 fL (36.4-46.3); WHITE BLOOD COUNT 8.19 K/uL (4.8-10.8)
--- NOTE | 2017-07-02 14:49 | DIAGNOSTIC IMAGING REPORT ---
CHEST ONE VIEW PORTABLE CLINICAL HISTORY: Fever. Sepsis. COMPARISON STUDY: Chest radiograph February 15, 2017. FINDINGS: Lung volumes are normal. Lower lung interstitial thickening is likely chronic. Suspected calcified nodules are again noted. Biapical pleural opacities remain unchanged. The appearance of the chest is unchanged. There is no evidence for pulmonary edema. Mild mediastinal widening is unchanged. IMPRESSION: No acute cardiopulmonary findings. No change in appearance of the chest, as described above. Electronically signed by: Ronald Davis M.D. 07/02/2017 2:47 PM Dictated Date/Time: 07/02/2017 2:46 PM
[2017-07-02 14:51] LABS: CALCIUM 8.6 mg/dl (8.5-10.1); CREATININE 0.85 mg/dl (0.60-1.40); POTASSIUM 3.4 mmol/L (3.5-5.1)
[2017-07-02 14:54] LABS: TOTAL PROTEIN 6.6 gm/dl (6.4-8.2)
[2017-07-02] MEDS: FENTANYL CITRATE INJ 50 MCG/1 ML 2 ML VIAL IV STA ×2 (15:13→17:28)
--- NOTE | 2017-07-02 16:10 | DIAGNOSTIC IMAGING REPORT ---
CT SCAN OF THE BRAIN COMBO CLINICAL HISTORY: Headache. Facial cellulitis. COMPARISON STUDY: CT of the brain dated 06/26/2017. TECHNIQUE: Axial CT scan of the brain is performed from the vertex to the skull base deformed following the IV administration of 92 cc of Optiray 320. IV contrast was administered without complication. A dose lowering technique was utilized adhering to the principles of ALARA. FINDINGS: Brain parenchyma: There are age-related involutional changes noting moderate subcortical and periventricular microangiopathic change. There is no hemorrhage, mass effect, or evidence of acute territorial ischemia by CT criteria. No enhancing mass lesion is identified on the postcontrast images. Anthony-white matter is preserved. No extra-axial fluid collection is seen. Ventricles, sulci, cisterns: Prominent secondary to involutional change. Intracranial vasculature: There is atherosclerotic calcification of the cavernous carotid and vertebral arteries.. Calvarium: Unremarkable. Sinuses and mastoids: Mild mucosal thickening is seen in the ethmoid sinuses and the right frontal sinus. The remaining visualized paranasal sinuses are clear. There is a small right mastoid effusion. The left mastoid air cells are well pneumatized. Orbits: The bony orbits are grossly intact. There are bilateral ocular lens implants. Soft tissues: There is significant soft tissue edema identified in the frontal scalp and the periorbital soft tissues. There is no evidence of fluid collection on the postcontrast images. IMPRESSION: 1. There is no hemorrhage, enhancing mass, or evidence of acute territorial ischemia by CT criteria. 2. There is soft tissue edema identified in the frontal scalp and periorbital soft tissues, likely representing cellulitis. Clinical correlation will be required. Electronically signed by: Thanh Bradshaw M.D. 07/02/2017 4:09 PM Dictated Date/Time: 07/02/2017 4:06 PM
--- NOTE | 2017-07-02 16:18 | DIAGNOSTIC IMAGING REPORT ---
CT SCAN OF THE FACIAL BONES WITH IV CONTRAST CLINICAL HISTORY: Headache. Facial cellulitis. COMPARISON STUDY: CT of the brain performed concurrently on 07/02/2017. TECHNIQUE: High-resolution CT scan of the facial bones is performed following the IV administration of 92 cc of Optiray 320. Images are reviewed in the axial, sagittal, and coronal planes. IV contrast was administered without complication. A dose lowering technique was utilized adhering to the principles of ALARA. CT DOSE: 1493.79 mGy.cm FINDINGS: The skeletal structures are osteopenic. There is no evidence of facial bone fracture. The bony orbits are intact and the orbital contents are within normal limits noting bilateral ocular lens implants. The zygomatic arches, nasal bones, and pterygoid plates are preserved. The maxilla and mandible are intact. Arthritic change is noted in the temporomandibular joints. There are no layering blood products within the paranasal sinuses. Trace mucosal thickening is seen in the ethmoid sinuses and the right frontal sinus. The remaining paranasal sinuses are clear. There is a small right mastoid effusion. The left mastoid air cells are clear. The visualized calvarium and upper cervical spine are maintained noting multilevel cervical spondylosis. Partially imaged brain parenchyma is within normal limits. Atherosclerotic calcification is noted in the carotid bulbs. There is significant soft tissue edema identified in the frontal scalp, the right temporoparietal scalp, the periorbital soft tissues bilaterally, right greater than left, and the right facial soft tissues. The appearance is typical for synovitis. There is subcutaneous fluid identified along the right parietal scalp. No organized fluid collection is seen to indicate abscess. There is edema identified within the sublingual soft tissues and involving the anterior pharyngeal soft tissues. There is mild infiltration of the right parapharyngeal fat. Prominent right cervical lymph nodes are likely on a reactive basis. The jugular veins and carotid arteries are patent bilaterally. IMPRESSION: 1. There is no evidence of facial bone fracture. 2. Findings are consistent with extensive facial cellulitis involving the frontal, bilateral periorbital, right temporal, and right facial soft tissues. There is subcutaneous fluid with no organized fluid collection to suggest abscess. 3. There is edema in the sublingual soft tissues which also involves the inferior right parapharyngeal fat as well as the anterior pharyngeal soft tissues. Donnell's angina is not excluded. Clinical correlation will be required. 4. There is no evidence of orbital cellulitis. Electronically signed by: Thanh Bradshaw M.D. 07/02/2017 4:17 PM Dictated Date/Time: 07/02/2017 4:10 PM
[2017-07-02] MEDS ORDERED: FENTANYL CITRATE INJ 50 MCG/1 ML 2 ML VIAL ONE (17:25)
[2017-07-02] MEDS ORDERED: PIPERACILLIN/TAZOBACTAM 4.5 GM/100ML D5W ONE (17:44)
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
[2017-07-02] MEDS ORDERED: CYCLOBENZAPRINE HCL 10 MG TAB PO PRN (18:45)
[2017-07-02] MEDS ORDERED: ALUMINUM/MAGNESIUM/SIMETH (MAALOX MAX) 30 ML UDC PO PRN (18:45)
[2017-07-02] MEDS ORDERED: PIPERACILL/TAZOBAC CONSULT ACTIVE PRN (18:45)
[2017-07-02] MEDS ORDERED: HydrALAZINE HCL 20 MG/ML VIAL IV. PRN (18:45)
[2017-07-02] MEDS ORDERED: MAGNESIUM HYDROXIDE SUSP 30 ML UDC PO PRN (18:45)
[2017-07-02] MEDS ORDERED: VANCOMYCIN CONSULT ACTIVE PRN (18:45)
[2017-07-02] MEDS ORDERED: ONDANSETRON INJ 2 MG/ML 2 ML VIAL IV PRN (18:45)
[2017-07-02] MEDS ORDERED: POLYETHYLENE (MIRALAX) 17 GM PACK PO PRN (18:45)
[2017-07-02 21:00] VITALS: BP 135/93; PULSE 90; TEMP 36.8; O2SAT 94; Ht 185.4 cm; Wt 100.0 kg
[2017-07-02] MEDS ORDERED: VANCOMYCIN INJ 1,000 MG in SODIUM CHLORIDE 0.9% 250ML 250 ML IV SCH (21:00)
[2017-07-02] MEDS: NSS + 20MEQ KCL 1000ML 1,000 ML IV SCH (21:55)
[2017-07-02] MEDS: VANCOMYCIN INJ 1,500 MG in SODIUM CHLORIDE 0.9% 500ML 500 ML IV SCH (21:55)
[2017-07-02] MEDS: MoRPHine SULFATE 4 MG/ML 1 ML CARP\\VIAL IV PRN (22:05)
[2017-07-02] MEDS: ENOXAPARIN 40 MG/0.4 ML SYR SC SCH (22:07)
[2017-07-02 23:02] VITALS: BP 147/96; PULSE 79; TEMP 36.6; O2SAT 94
[2017-07-02] MEDS: PIPERACILL/TAZOBAC IV 3.375 GM in DEXTROSE 5% 100ML 100 ML IV SCH (23:14)
[2017-07-03] VITALS (8 sets, daily range): BP systolic 141–165; BP diastolic 74–108; PULSE 73–112; TEMP 36.5–38.8; O2SAT 92–95
[2017-07-03] MEDS ORDERED: hydrOXYzine HCL 25 MG TAB PO ONE
[2017-07-03] MEDS: MoRPHine SULFATE 4 MG/ML 1 ML CARP\\VIAL IV PRN ×3 (01:35→07:40)
[2017-07-03] MEDS: VANCOMYCIN INJ 1,500 MG in SODIUM CHLORIDE 0.9% 500ML 500 ML IV SCH ×3 (04:38→21:35)
[2017-07-03] MEDS: PIPERACILL/TAZOBAC IV 3.375 GM in DEXTROSE 5% 100ML 100 ML IV SCH ×3 (06:18→23:23)
[2017-07-03 06:55] LABS: HEMATOCRIT 43.8 % (42-52); HEMOGLOBIN 15.3 g/dL (14.0-18.0); MEAN CELL VOLUME 94.6 fL (80-100); MEAN CORPUSCULAR HGB CONC 34.9 g/dl (32-36); MEAN PLATELET VOLUME 10.6 fL (7.4-10.4); PLATELET COUNT 130 K/uL (130-400); RED CELL DISTRIBUTION WIDTH SD 48.3 fL (36.4-46.3)
[2017-07-03 07:35] LABS: CALCIUM 7.9 mg/dl (8.5-10.1); CREATININE 0.63 mg/dl (0.60-1.40); POTASSIUM 3.6 mmol/L (3.5-5.1)
[2017-07-03] MEDS: ACETAMINOPHEN 325 MG TAB PO PRN ×2 (07:39→19:40)
[2017-07-03] MEDS: HYDROCHLOROTHIAZIDE 25 MG TAB PO SCH (07:41)
--- NOTE | 2017-07-03 08:49 | Pharmacy Progress Note ---
Pharmacy Abx Initial Consult Date of Service Jul 03, 2017. Pharmacy Dosing Scope Date of Consult: 07/03/17 Consultation requested by: Dr. Feldman Pharmacy is consulted to initiate Vancomycin IV dosing therapy, order appropriate labs and adjust drug dose/frequency. Subjective The patient is a 61 year old male admitted on Jul 02, 2017 at 19:02. Objective Height (Feet): 6 Height (Inches): 1.00 Weight (Kilograms): 98.400 Vital Signs (Past 12Hrs) Vital Signs Past 12 Hours Date Time Temp Pulse Resp B/P (MAP) Pulse Ox O2 Delivery O2 Flow Rate FiO2 07/03/17 08:02 37.9 83 20 165/108 (127) 94 07/03/17 04:00 Room Air 07/03/17 03:55 36.7 81 18 151/83 (105) 95 Room Air 07/02/17 23:59 Room Air 07/02/17 23:02 36.6 79 18 147/96 (113) 94 Room Air 07/02/17 21:00 36.8 90 16 135/93 94 Room Air Lab Results (24Hrs) Laboratory Tests (24 Hours) Test 07/02/17 14:17 07/03/17 06:30 Lactic Acid Level 1.6 mmol/L (0.4-2.0) White Blood Count 8.19 K/uL (4.8-10.8) 7.60 K/uL (4.8-10.8) Red Blood Count 5.31 M/uL (4.7-6.1) Hemoglobin 17.8 g/dL (14.0-18.0) Hematocrit 50.5 % (42-52) Mean Corpuscular Volume 95.1 fL (80-100) Mean Corpuscular Hemoglobin 33.5 pg (25-34) Mean Corpuscular Hemoglobin Concent 35.2 g/dl (32-36) Platelet Count 145 K/uL (130-400) Mean Platelet Volume 10.7 fL (7.4-10.4) H Neutrophils (%) (Auto) 78.6 % Lymphocytes (%) (Auto) 12.8 % Monocytes (%) (Auto) 6.8 % Eosinophils (%) (Auto) 0.6 % Basophils (%) (Auto) 0.5 % Neutrophils # (Auto) 6.43 K/uL (1.4-6.5) Lymphocytes # (Auto) 1.05 K/uL (1.2-3.4) L Monocytes # (Auto) 0.56 K/uL (0.11-0.59) Eosinophils # (Auto) 0.05 K/uL (0-0.5) Basophils # (Auto) 0.04 K/uL (0-0.2) Micro Results Date/Time Source Procedure Growth Status 07/02/17 14:26 Blood Blood Culture Pending Received 07/02/17 14:17 Blood Blood Culture Pending Received Risk Factors for Resistance * Immunocompromised: chronic steroid therapy Assessment & Plan Assessment 61 year old male admitted with periorbital cellulitis. Mr. Yu is immunosuppressed 2/2 to chronic steroid tx. Pt population p'kinetics: t1/2=7hrs , ke=0.0974. BC are both pending. He continues to spike fevers. Plan Vancomycin IV * Loading dose: 2000mg (20 mg/kg) to achieve a peak of about 30mcg/mL * Maintenance dose: 1500 mg IV (15 mg/kg) every 8 hours * Goal trough level for cellulitis in the setting of immunosuppression : 15 to 20 mcg/mL * Trough level ordered for 07/04/17 @ 0430 Zosyn * Zosyn 4.5g 30 min infsn bolus * Then Zosyn 3.375g 8 appropriate for clinical status and eCrCl>20cc/min Pharmacy will continue to follow and will adjust dose/frequency as necessary. Thank you.
[2017-07-03] MEDS ORDERED: NURSING VERBAL MED ORDER ONE (09:30)
[2017-07-03] MEDS ORDERED: MoRPHine SULFATE 2 MG/ML CARP IV ONE (09:30)
[2017-07-03] MEDS ORDERED: BISACODYL 5 MG TABEC PO PRN (11:15)
[2017-07-03] MEDS ORDERED: GABAPENTIN 100 MG CAP PO ONE (11:15)
[2017-07-03] MEDS ORDERED: POLYETHYLENE (MIRALAX) 17 GM PACK PO PRN (11:15)
[2017-07-03] MEDS: GABAPENTIN 100 MG CAP PO SCH ×2 (13:19→21:28)
[2017-07-03] MEDS: NSS + 20MEQ KCL 1000ML 1,000 ML IV SCH (14:01)
[2017-07-03] MEDS: MoRPHine SULFATE 10 MG/ML CARP/VIAL IV PRN ×2 (14:07→19:40)
[2017-07-03] MEDS ORDERED: CIPROFLOXACIN HCL 0.3% OP SOLN 2.5 ML BTL OP SCH (15:15)
--- NOTE | 2017-07-03 15:19 | Medical Student: [facility] ---
Med Student Progress Note Date of Service Jul 03, 2017. Subjective Pt evaluation today including: conversation w/ patient, physical exam, lab review Pain: 9.5/10 PO Intake: NPO Voiding: no voiding problems This is a 61-year-old gentleman with a history of RA treated with prednisone and HTN who is admitted for Shingles with superimposed cellulitis concerning for Donnell's angina, currently treated with valacyclovir, vancomycin, and piperacillin/tazobactam. Pt reports feeling "awful" with burning, 9.5/10 pain across his face that the meds "aren't touching." He slept poorly last night due to pain as well as some subjective fevers and chills. He denies CP, SOB, nausea , vomiting, dysuria, calf pain, dysphagia, or neck stiffness. He has also not had a bowel movement in 3 days even though he normally goes every day. He says this might be due to the oxycontin he was on prior to admission. He states he wasn't given any medication to help him move his bowels with that opioid prescription. Review of Systems Notes: see hpi Objective Vital Signs Date Time Temp Pulse Resp B/P (MAP) Pulse Ox O2 Delivery O2 Flow Rate FiO2 07/03/17 12:00 Room Air 07/03/17 11:36 36.5 73 20 156/96 (116) 92 Room Air 07/03/17 08:30 94 Room Air 07/03/17 08:02 37.9 83 20 165/108 (127) 94 07/03/17 04:00 Room Air 07/03/17 03:55 36.7 81 18 151/83 (105) 95 Room Air 07/02/17 23:59 Room Air 07/02/17 23:02 36.6 79 18 147/96 (113) 94 Room Air 07/02/17 21:00 36.8 90 16 135/93 94 Room Air 07/02/17 20:37 82 18 134/85 93 07/02/17 19:48 93 20 114/79 93 Room Air 07/02/17 18:56 97 16 124/85 95 Room Air 07/02/17 17:33 104 20 125/84 96 Room Air 07/02/17 17:04 105 22 130/80 93 Room Air 07/02/17 16:18 104 26 165/102 93 Room Air 07/02/17 15:05 100 24 153/113 95 Room Air 07/02/17 13:50 37.4 109 18 134/108 96 Room Air Physical Exam General Appearance: no apparent distress ENT: + pertinent finding (dry mucous membranes) Neck: + pertinent finding (no tenderness in submandibular space. full ROM of neck.) Respiratory/Chest: normal breath sounds (however difficult to fully auscultate as he moans when breathing) Cardiovascular: regular rate, rhythm, no edema, no gallop, + systolic murmur ( best heard over mitral area with some radiation to axilla) Abdomen: normal bowel sounds, non tender, soft Extremities: normal inspection, no pedal edema, no calf tenderness Laboratory Results Last 24 Hours Test 07/02/17 14:17 07/02/17 21:30 07/03/17 06:30 07/03/17 07:07 White Blood Count 8.19 K/uL 7.60 K/uL Red Blood Count 5.31 M/uL 4.63 M/uL Hemoglobin 17.8 g/dL 15.3 g/dL Hematocrit 50.5 % 43.8 % Mean Corpuscular Volume 95.1 fL 94.6 fL Mean Corpuscular Hemoglobin 33.5 pg 33.0 pg Mean Corpuscular Hemoglobin Concent 35.2 g/dl 34.9 g/dl Platelet Count 145 K/uL 130 K/uL Mean Platelet Volume 10.7 fL 10.6 fL Neutrophils (%) (Auto) 78.6 % Lymphocytes (%) (Auto) 12.8 % Monocytes (%) (Auto) 6.8 % Eosinophils (%) (Auto) 0.6 % Basophils (%) (Auto) 0.5 % Neutrophils # (Auto) 6.43 K/uL Lymphocytes # (Auto) 1.05 K/uL Monocytes # (Auto) 0.56 K/uL Eosinophils # (Auto) 0.05 K/uL Basophils # (Auto) 0.04 K/uL RDW Standard Deviation 48.9 fL 48.3 fL RDW Coefficient of Variation 14.2 % 14.0 % Immature Granulocyte % (Auto) 0.7 % Immature Granulocyte # (Auto) 0.06 K/uL Nucleated RBC Absolute Count (auto) 0.06 K/uL Nucleated Red Blood Cells % 0.7 % Sodium Level 128 mmol/L 129 mmol/L Potassium Level 3.4 mmol/L 3.6 mmol/L Chloride Level 90 mmol/L 95 mmol/L Carbon Dioxide Level 29 mmol/L 26 mmol/L Anion Gap 9.0 mmol/L 8.0 mmol/L Blood Urea Nitrogen 10 mg/dl 13 mg/dl Creatinine 0.85 mg/dl 0.63 mg/dl Est Creatinine Clear Calc Drug Dose 112.1 ml/min 150.1 ml/min Estimated GFR () 108.2 122.4 Estimated GFR (Non- 93.4 105.6 BUN/Creatinine Ratio 12.1 21.0 Random Glucose 94 mg/dl 88 mg/dl Lactic Acid Level 1.6 mmol/L Calcium Level 8.6 mg/dl 7.9 mg/dl Total Bilirubin 0.6 mg/dl Direct Bilirubin 0.2 mg/dl Aspartate Amino Transf (AST/SGOT) 25 U/L Alanine Aminotransferase (ALT/SGPT) 27 U/L Alkaline Phosphatase 77 U/L Total Protein 6.6 gm/dl Albumin 3.0 gm/dl Bedside Glucose 100 mg/dl Test 07/03/17 10:41 Bedside Glucose 104 mg/dl Assessment and Plan Assessment and Plan: This is a 61-year-old gentleman with a history of RA treated with prednisone and HTN who is admitted for Shingles with superimposed cellulitis concerning for Donnell's angina, currently treated with valacyclovir, vancomycin, and piperacillin/tazobactam. SHINGLES & CELLULITIS - Rash appears the same as yesterday. However there is less swelling of the left side of his face. - Wound team on board and saw patient. Applied cooling dressing to face. - VZV pending, however clinically appears to be Shingles in dermatome of ophthalmic branch of CN V, so we will continue valacyclovir. - Considering recent hospitalization in May and CT concerning for Donnell' s angina, we are choosing vanc and pip/tazo for broad coverage. Blood cultures pending. - With less swelling, decreased submandibular tenderness, no dysphagia or SOB, airway compromise risk appears to be decreased. With this improvement, reasonable to allow food by mouth. - Per ophtho, will add ciprofloxacin to empirically cover eye infection. PAIN - Pt rates pain as 9.5/10. States that morphine given has not helped. He is not opioid naive. - We will increase morphine to be 6mg q3 hours PRN for pain. - Continue to offer acetaminophen for pain as well. HTN - Was hypertensive yesterday prior to fentanyl administration, so likely secondary to pain. Treating pain as above should help control BP. - Continue HCTZ and give hydralazine if SBP > 180 PRN. RHEUMATOID ARTHRITIS - Patient states that joint pain is at an acceptable level currently. Continue prednisone. CONSTIPATION - Pt reveals no BM in 3 days in setting of opioid use. We will provide miralax and senna as bowel regimen. CODE STATUS - Pt is DNR Continued [facility] stay due to: ambulation difficulties (impaired vision), multiple IV medications needed, home environment unsafe for pt
[2017-07-03] MEDS: CIPROFLOXACIN HCL 0.3% OP SOLN 2.5 ML BTL OPR SCH ×3 (16:19→23:23)
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
[2017-07-03] MEDS: ENOXAPARIN 40 MG/0.4 ML SYR SC SCH (22:22)
[2017-07-04] VITALS (13 sets, daily range): BP systolic 118–182; BP diastolic 77–126; PULSE 87–118; TEMP 36.8–38.2; O2SAT 92–98
[2017-07-04] MEDS: ACETAMINOPHEN 325 MG TAB PO PRN (03:41)
[2017-07-04] MEDS ORDERED: THIAMINE HCL 100 MG/ML 2 ML VIAL IM ONE (03:45)
[2017-07-04] MEDS ORDERED: LORAZEPAM 2 MG/ML 1 ML VIAL IV PRN (03:45)
[2017-07-04] MEDS ORDERED: LORAZEPAM 2 MG/ML 1 ML VIAL ONE (04:02)
[2017-07-04] MEDS: CIPROFLOXACIN HCL 0.3% OP SOLN 2.5 ML BTL OPR SCH ×2 (04:07→07:14)
[2017-07-04 04:13] LABS: BASO % 0.3 %; BASO ABS # 0.03 K/uL (0-0.2); EOS % 0.1 %; EOS ABS # 0.01 K/uL (0-0.5); HEMATOCRIT 43.8 % (42-52); HEMOGLOBIN 15.1 g/dL (14.0-18.0); IG# 0.04 K/uL (0.00-0.02); LYMPH % 20.7 %; LYMPH ABS # 1.78 K/uL (1.2-3.4); MEAN CELL VOLUME 95.2 fL (80-100); MEAN CORPUSCULAR HEMOGLOBIN 32.8 pg (25-34); MEAN CORPUSCULAR HGB CONC 34.5 g/dl (32-36); MEAN PLATELET VOLUME 10.2 fL (7.4-10.4); MONO % 7.4 %; MONO ABS # 0.64 K/uL (0.11-0.59); NEUT ABS # 6.11 K/uL (1.4-6.5); PLATELET COUNT 114 K/uL (130-400); RED CELL DISTRIBUTION WIDTH SD 48.4 fL (36.4-46.3); WHITE BLOOD COUNT 8.61 K/uL (4.8-10.8)
[2017-07-04] MEDS ORDERED: MULTI-VITAMIN INFUSION INJ 10 ML, THIAMINE HCL INJ 100 MG, FoLIC ACID INJ 1 MG in SODIU... IV ONE (04:30)
[2017-07-04] MEDS ORDERED: VANCOMYCIN TROUGH ONE (04:30)
[2017-07-04 04:40] LABS: CALCIUM 7.7 mg/dl (8.5-10.1); CREATININE 0.92 mg/dl (0.60-1.40); POTASSIUM 3.1 mmol/L (3.5-5.1)
--- NOTE | 2017-07-04 06:19 | Progress Note ---
Progress Note Date of Service Jul 04, 2017. Progress Note Called to see patient for fever, HTN, confusion - Elicited a history of heavy alcohol consumption in the past, and recent beer consumption as recent as this past Saturday - Ordered labs CBC, repeat blood cultures, urine culture, urine drug screen - Concern for withdrawal. Patient placed on AWSS protocol Called to see patient for complaints of SOB and worsening facial swelling - Resp rate slightly increased 28, sats good 93%. Tongue swollen, no wheezing on auscultation - Patient still uncomfortable with O2 via NC, although sats improved to 97%. - Contacted ICU PA who agreed with assessment and discussed case with Dr. Bear. - Will transfer to ICU for possible intubation - patient agreeable at this point , consent witnessed by myself, nurse JD Aranda - PO prednisone 40mg and diphenhydramine 50mg given stat prior to transfer Resident Tracking Resident Involvement: Resident Care Provided Care Provided: Adult Hospital Medicine
[2017-07-04] MEDS: VANCOMYCIN INJ 1,500 MG in SODIUM CHLORIDE 0.9% 500ML 500 ML IV SCH ×2 (06:27→12:19)
[2017-07-04] MEDS: PIPERACILL/TAZOBAC IV 3.375 GM in DEXTROSE 5% 100ML 100 ML IV SCH (06:27)
[2017-07-04] MEDS ORDERED: POTASSIUM CHLORIDE 20 MEQ/15 ML UDC PO STA (07:10)
[2017-07-04] MEDS: NSS + 20MEQ KCL 1000ML 1,000 ML IV SCH (07:13)
--- NOTE | 2017-07-04 07:23 | Critical Care Consultation ---
Critical Care Consultation Date of Consultation: Jul 04, 2017. Attending Physician: Clive Chase MD Reason for Consultation: Tongue swelling, Willing to be intubated History of Present Illness Fernando Yu 61-year-old male with past mental history of rheumatoid arthritis on 10 mg of prednisone daily, hypertension, alcohol abuse. He presented to [facility] for facial swelling, redness and pain with an onset of approximately one week prior. Patient has dried scabs on the right side of the ophthalmic distribution of his face with swelling and oozing on the right eye. Patient does state that he cannot see out of his right eye due to swelling. Patient has bilateral swelling of the face down into his neck and the majority of his face is red and hot. He states that the tongue is swollen and he is short of breath; however, he does deny difficulty swallowing or taking in air. He complains his shortness of breath is more of a tightness in the chest then in the neck. During my examination he asked multiple times if he could back to sleep as he is very tired. Patient complains of a throbbing burning pain on admission. Patient has now been treated for facial cellulitis with low-grade angina with presumed shingles flare. On ophthalmology consultations in place patient has not been seen yet. He is currently on broad-spectrum antibiotics as well as valacyclovir. While patient was originally adamant her medical record of DO NOT RESUSCITATE/DO NOT INTUBATE status he confirmed with me today that he would like to be intubated if his airway were compromised. Wakes up to transfer the patient from telemetry status to the ICU and I've discussed the case with Dr. Bear who is aware of the possible need of intubation. Patient had previously told nursing staff that he drinks 5-6 beers a day but hadn't drank in the last month. To me today he admitted to 2-3 beers a week with the last one being on Saturday of this week. Patient is currently on alcohol withdrawal protocol and being monitored. Nursing reported that the patient was acting strange and did receive Ativan for withdrawal. Upon my examination patient is appropriate and alert and oriented 4. The patient denies dizziness, headache, numbness, sore throat, chest pain, palpitations, awareness of tachyarrhythmias, leg swelling, cough, nausea, vomiting, bloody stools, diarrhea, constipation, abdominal pain, other changes in urine or bowel habits. Past Medical/Surgical History Medical Problems: Facial cellulitis HTN (hypertension) Renal failure Rheumatoid arthritis Upper gastrointestinal bleed Surgical Problems: Hx of cholecystectomy Family History Hypertension Social History Smoking Status: Current Every Day Smoker Drug Use: none Marital Status: Housing Status: lives alone Occupation Status: disabled Allergies Coded Allergies: Sulfa Antibiotics (Verified Allergy, Unknown, ., 07/02/17) Home Medications Scheduled Folic Acid (Folvite), 1 MG PO DAILY Hydrochlorothiazide (Hctz), 25 MG PO DAILY Prednisone (Prednisone), 10 MG PO DAILY Scheduled PRN Cyclobenzaprine Hcl (Flexeril), 10 MG PO TID PRN for Muscle Spasms Hydrocodone/Acetaminophen 7.5MG/325MG (Barn[place] 7.5MG/325MG), 1 TAB PO Q4 PRN for Pain Tramadol (Ultram), 50 MG PO PRN UD PRN for Pain Current Inpatient Medications Current Inpatient Medications Medications (Trade) Dose Ordered Sig/Tapan Route Start Time Stop Time Status Last Admin Dose Admin Ioversol (Optiray 320) 111 ml UD PRN IV 07/02/17 14:15 07/06/17 14:14 Enoxaparin Sodium (Lovenox Inj) 40 mg Q24H SC 07/02/17 22:00 08/01/17 21:59 07/03/17 22:22 40 MG Potassium Chloride/Sodium Chloride 1,000 ml @ 125 mls/hr Q8H IV 07/02/17 21:15 08/01/17 21:14 07/03/17 14:01 125 MLS/HR Acetaminophen (Tylenol Tab) 650 mg Q4H PRN PO 07/02/17 18:45 08/01/17 18:44 07/04/17 03:41 650 MG Al Hydrox/Mg Hydrox/Simethicone (Maalox Max Susp) 15 ml Q4H PRN PO 07/02/17 18:45 08/01/17 18:44 Magnesium Hydroxide (Milk Of Magnesia Susp) 30 ml Q12H PRN PO 07/02/17 18:45 08/01/17 18:44 Ondansetron HCl (Zofran Inj) 4 mg Q6H PRN IV 07/02/17 18:45 08/01/17 18:44 Miscellaneous Information (Consult) 1 ea UD PRN N/A 07/02/17 18:45 08/01/17 18:44 Piperacillin Sod/ Tazobactam Sod 3.375 gm/Dextrose 115 ml @ 28.75 mls/ hr Q8 IV 07/02/17 22:00 07/12/17 21:59 07/03/17 23:23 28.75 MLS/HR Miscellaneous Information (Consult) 1 ea UD PRN N/A 07/02/17 18:45 08/01/17 18:44 Valacyclovir HCl (Valtrex Tab) 500 mg TID PO 07/02/17 21:00 07/12/17 20:59 07/03/17 21:28 500 MG Cyclobenzaprine HCl (Flexeril Tab) 10 mg TID PRN PO 07/02/17 18:45 08/01/17 18:44 Folic Acid (Folvite Tab) 1 mg DAILY PO 07/03/17 09:00 08/02/17 08:59 07/03/17 07:40 1 MG Hydrochlorothiazide (Hydrochlorothiazide Tab) 25 mg DAILY PO 07/03/17 09:00 08/02/17 08:59 07/03/17 07:41 25 MG Prednisone (PredniSONE TAB) 10 mg DAILY PO 07/03/17 09:00 08/02/17 08:59 07/03/17 07:41 10 MG Hydralazine HCl (HydrALAZINE INJ) 5 mg Q4H PRN IV. 07/02/17 18:45 08/01/17 18:44 07/04/17 03:42 5 MG Vancomycin HCl 1500 mg/Sodium Chloride 530 ml @ 200 mls/hr 0500,1300,2100 IV 07/02/17 21:25 07/12/17 21:24 07/03/17 21:35 200 MLS/HR Polyethylene (Miralax Powder Packet) 17 gm DAILY PRN PO 07/03/17 11:15 08/02/17 11:14 Bisacodyl (Dulcolax Tab) 5 mg DAILY PRN PO 07/03/17 11:15 08/02/17 11:14 Morphine Sulfate (MoRPHine SULFATE INJ) 6 mg Q3H PRN IV 07/03/17 11:30 07/16/17 18:44 07/03/17 19:40 6 MG Gabapentin (Neurontin Cap) 100 mg TID PO 07/03/17 14:00 08/02/17 13:59 07/03/17 21:28 100 MG Ciprofloxacin HCl (Ciprofloxacin 0.3% Op Soln) 2 drops Q4H OPR 07/03/17 15:15 07/13/17 15:14 07/04/17 04:07 2 DROPS Multivitamins 10 ml/Thiamine HCl 100 mg/Folic Acid 1 mg/Sodium Chloride 1,011.2 ml @ 500 mls/ hr Q2H2M ONCE IV 07/04/17 04:30 07/04/17 06:31 07/04/17 04:46 500 MLS/HR Lorazepam (Ativan Inj) 1 mg ONE PRN IV 07/04/17 03:45 Review of Systems 12 systems reviewed and negative other than previously mentioned in the HPI. Physical Exam Date Time Temp Pulse Resp B/P (MAP) Pulse Ox O2 Delivery O2 Flow Rate FiO2 07/04/17 04:58 37.3 104 28 174/109 (130) 93 Room Air 07/04/17 04:00 Room Air 07/04/17 03:10 38.2 93 24 182/126 (144) 95 Room Air 182/117 (138) 07/03/17 23:59 Room Air 07/03/17 23:24 37.0 94 19 155/74 (101) 94 Room Air 07/03/17 22:05 37.1 07/03/17 20:00 Room Air 07/03/17 19:23 38.8 112 20 141/97 (112) 92 Room Air 07/03/17 16:00 Room Air 07/03/17 15:45 36.9 79 18 161/97 (118) 92 Room Air 07/03/17 12:00 Room Air 07/03/17 11:36 36.5 73 20 156/96 (116) 92 Room Air 07/03/17 08:30 94 Room Air 07/03/17 08:02 37.9 83 20 165/108 (127) 94 Vital Signs - as noted Laboratory Data - as noted Physical Exam: General - NAD, asking to go back to sleep Eyes -Right eye swollen shut, draining thick discharge present, pain to touch, could not examine ENT - Mucosa moist, no lesions or candidiasis, tongue appears swollen, oral area swollen and restricting view Neck - Supple, trachea midline, red, swollen and warm to palpation, no stridor noted Lungs - No paradoxical chest wall movement, diminished auscultation bilaterally , no wheezes, rales, or rhonchi Heart - Sinus tachycardia, No murmur, rubs, clicks, or gallops appreciated Abdomen - BS present, no bruits noted, tympanic to percussion, soft, nontender, nondistended, no organomegaly Extremities - No edema, pedal pulses intact Neuro - A&OX3 Strength extremities equal and appropriate bilaterally Reflexes: Normal and equal Skin: dry crusting scabs in the right ophthalmic nerve distribution Laboratory Results Last 24 Hours Test 07/03/17 06:30 07/03/17 07:07 07/03/17 10:41 07/03/17 16:25 White Blood Count 7.60 K/uL Red Blood Count 4.63 M/uL Hemoglobin 15.3 g/dL Hematocrit 43.8 % Mean Corpuscular Volume 94.6 fL Mean Corpuscular Hemoglobin 33.0 pg Mean Corpuscular Hemoglobin Concent 34.9 g/dl RDW Standard Deviation 48.3 fL RDW Coefficient of Variation 14.0 % Platelet Count 130 K/uL Mean Platelet Volume 10.6 fL Sodium Level 129 mmol/L Potassium Level 3.6 mmol/L Chloride Level 95 mmol/L Carbon Dioxide Level 26 mmol/L Anion Gap 8.0 mmol/L Blood Urea Nitrogen 13 mg/dl Creatinine 0.63 mg/dl Est Creatinine Clear Calc Drug Dose 150.1 ml/min Estimated GFR () 122.4 Estimated GFR (Non- 105.6 BUN/Creatinine Ratio 21.0 Random Glucose 88 mg/dl Calcium Level 7.9 mg/dl Bedside Glucose 100 mg/dl 104 mg/dl 125 mg/dl Test 07/04/17 03:58 White Blood Count 8.61 K/uL Red Blood Count 4.60 M/uL Hemoglobin 15.1 g/dL Hematocrit 43.8 % Mean Corpuscular Volume 95.2 fL Mean Corpuscular Hemoglobin 32.8 pg Mean Corpuscular Hemoglobin Concent 34.5 g/dl Platelet Count 114 K/uL Mean Platelet Volume 10.2 fL Neutrophils (%) (Auto) 71.0 % Lymphocytes (%) (Auto) 20.7 % Monocytes (%) (Auto) 7.4 % Eosinophils (%) (Auto) 0.1 % Basophils (%) (Auto) 0.3 % Neutrophils # (Auto) 6.11 K/uL Lymphocytes # (Auto) 1.78 K/uL Monocytes # (Auto) 0.64 K/uL Eosinophils # (Auto) 0.01 K/uL Basophils # (Auto) 0.03 K/uL RDW Standard Deviation 48.4 fL RDW Coefficient of Variation 14.0 % Immature Granulocyte % (Auto) 0.5 % Immature Granulocyte # (Auto) 0.04 K/uL Sodium Level 129 mmol/L Potassium Level 3.1 mmol/L Chloride Level 94 mmol/L Carbon Dioxide Level 28 mmol/L Anion Gap 7.0 mmol/L Blood Urea Nitrogen 15 mg/dl Creatinine 0.92 mg/dl Est Creatinine Clear Calc Drug Dose 102.8 ml/min Estimated GFR () 102.9 Estimated GFR (Non- 88.8 BUN/Creatinine Ratio 16.3 Random Glucose 77 mg/dl Calcium Level 7.7 mg/dl Vancomycin Level Trough 20.6 mcg/ml Diagnostic Results CT SCAN OF THE BRAIN COMBO CLINICAL HISTORY: Headache. Facial cellulitis. COMPARISON STUDY: CT of the brain dated 06/26/2017. TECHNIQUE: Axial CT scan of the brain is performed from the vertex to the skull base deformed following the IV administration of 92 cc of Optiray 320. IV contrast was administered without complication. A dose lowering technique was utilized adhering to the principles of ALARA. FINDINGS: Brain parenchyma: There are age-related involutional changes noting moderate subcortical and periventricular microangiopathic change. There is no hemorrhage, mass effect, or evidence of acute territorial ischemia by CT criteria. No enhancing mass lesion is identified on the postcontrast images. Anthony-white matter is preserved. No extra-axial fluid collection is seen. Ventricles, sulci, cisterns: Prominent secondary to involutional change. Intracranial vasculature: There is atherosclerotic calcification of the cavernous carotid and vertebral arteries.. Calvarium: Unremarkable. Sinuses and mastoids: Mild mucosal thickening is seen in the ethmoid sinuses and the right frontal sinus. The remaining visualized paranasal sinuses are clear. There is a small right mastoid effusion. The left mastoid air cells are well pneumatized. Orbits: The bony orbits are grossly intact. There are bilateral ocular lens implants. Soft tissues: There is significant soft tissue edema identified in the frontal scalp and the periorbital soft tissues. There is no evidence of fluid collection on the postcontrast images. IMPRESSION: 1. There is no hemorrhage, enhancing mass, or evidence of acute territorial ischemia by CT criteria. 2. There is soft tissue edema identified in the frontal scalp and periorbital soft tissues, likely representing cellulitis. Clinical correlation will be required. CT SCAN OF THE FACIAL BONES WITH IV CONTRAST CLINICAL HISTORY: Headache. Facial cellulitis. COMPARISON STUDY: CT of the brain performed concurrently on 07/02/2017. TECHNIQUE: High-resolution CT scan of the facial bones is performed following the IV administration of 92 cc of Optiray 320. Images are reviewed in the axial, sagittal, and coronal planes. IV contrast was administered without complication. A dose lowering technique was utilized adhering to the principles of ALARA. CT DOSE: 1493.79 mGy.cm FINDINGS: The skeletal structures are osteopenic. There is no evidence of facial bone fracture. The bony orbits are intact and the orbital contents are within normal limits noting bilateral ocular lens implants. The zygomatic arches, nasal bones, and pterygoid plates are preserved. The maxilla and mandible are intact. Arthritic change is noted in the temporomandibular joints. There are no layering blood products within the paranasal sinuses. Trace mucosal thickening is seen in the ethmoid sinuses and the right frontal sinus. The remaining paranasal sinuses are clear. There is a small right mastoid effusion. The left mastoid air cells are clear. The visualized calvarium and upper cervical spine are maintained noting multilevel cervical spondylosis. Partially imaged brain parenchyma is within normal limits. Atherosclerotic calcification is noted in the carotid bulbs. There is significant soft tissue edema identified in the frontal scalp, the right temporoparietal scalp, the periorbital soft tissues bilaterally, right greater than left, and the right facial soft tissues. The appearance is typical for synovitis. There is subcutaneous fluid identified along the right parietal scalp. No organized fluid collection is seen to indicate abscess. There is edema identified within the sublingual soft tissues and involving the anterior pharyngeal soft tissues. There is mild infiltration of the right parapharyngeal fat. Prominent right cervical lymph nodes are likely on a reactive basis. The jugular veins and carotid arteries are patent bilaterally. IMPRESSION: 1. There is no evidence of facial bone fracture. 2. Findings are consistent with extensive facial cellulitis involving the frontal, bilateral periorbital, right temporal, and right facial soft tissues. There is subcutaneous fluid with no organized fluid collection to suggest abscess. 3. There is edema in the sublingual soft tissues which also involves the inferior right parapharyngeal fat as well as the anterior pharyngeal soft tissues. Donnell's angina is not excluded. Clinical correlation will be required. 4. There is no evidence of orbital cellulitis. Electronically signed by: Thanh Bradshaw M.D. 07/02/2017 4:17 PM Dictated Date/Time: 07/02/2017 4:10 PM CHEST ONE VIEW PORTABLE CLINICAL HISTORY: Fever. Sepsis. COMPARISON STUDY: Chest radiograph February 15, 2017. FINDINGS: Lung volumes are normal. Lower lung interstitial thickening is likely chronic. Suspected calcified nodules are again noted. Biapical pleural opacities remain unchanged. The appearance of the chest is unchanged. There is no evidence for pulmonary edema. Mild mediastinal widening is unchanged. IMPRESSION: No acute cardiopulmonary findings. No change in appearance of the chest, as described above. Electronically signed by: Ronald Davis M.D. 07/02/2017 2:47 PM Dictated Date/Time: 07/02/2017 2:46 PM Assessment & Plan (1) Facial cellulitis (2) Herpes zoster (3) Periorbital cellulitis (4) Renal failure (5) Rheumatoid arthritis (6) right side facial wound (7) HTN (hypertension) PLAN: Resp: * Tongue swelling, susp of Donnell angina on CT, No stridor noted on physical exam, pt denies difficulty * Spoke with Resident Dr. Nisa and recommend 40mg of PO Prednisone and 50mg of Benadryl and transfer to ICU for airway monitoring * Pt willing to be intubated should his current condition require it * Monitor closely for change * Pt with adequate saturations on 2L nasal cannula * CXR without current infectious process * End tidal CO2 Neuro: * Herpes Zoster of the 5th cranial nerve, with obvious skin distribution in the skin of the ophthalmic distribution * Ophthalmology consult placed, not seen inpt;(missed outpt followup) Ciprofloxacin Op Soln started 07/03 * Continue Valacyclovir TID x 7day; first tx 07/02 (increase to 1000mg) * Wound Consult in place * Monitor for continued signs of withdrawal * CIWA precautions * Ativan per protocol * Multiple pain medications outpt, continue to hold now CV: * Tachycardic * Pain versus withdrawal, Continue to monitor on telemetry * Alert provider if HR > 115 sustained * Chronic HTN * Goal SBP < 160 * Hydralazine on EMR * No report of chest pain * prior EKG without signs of ischemia * Monitor and replete electrolytes per protocol Fluids/Renal: * Cr 0.92; Appears to be near baseline per EMR * crcl 88.8 * UOP decreased per EMR * Pt voiding, no dudley * Continue NSS with 20KCl at 125 ID: * Pt Tmax: 38.8 and 1923 on 07/03 * No leukocytosis * CXR without infectious process * Blood Cultures pending x 2 * Abx: Zosyn, Vano, Ciprofloxacin opthal susan * Antiviral: Valacyclovir Should be increased to 1000mg TID x 7days GI/Nutrition: * NPO except meds, until known airway status Heme: * H&H trending down 17.8 to 15.1; BUN WNL but increasing 10 to 15 * Hx of GI bleed, Hemoccult ordered Endocrine: * Accu-Checks per protocol, started insulin infusion for 2 blood sugars greater than 180 * No hx of DM Autoimmune: * Rheumatoid Arthritis: Continue 10mg PO Prednisone CCT: 45 Minutes; This time is exclusive of all separately billable procedures. Thank you for involving us in the care of this patient. Please refer to Dr. Jose Bear's addendum for further recommendations. I have personally evaluated and examined this patient. I agree with assessment and plan of Aleida Canada PA-C. During my evaluation the patient was not having difficulty swallowing and managing his secretions. Was having mild discomfort with palpation of the neck , it was noticeably swollen. He is clear to auscultation bilaterally. Unable to visualize the eye and will defer further examination to the bricklayer's assistant who will be reporting later today. His valacyclovir dosing was increased.
[2017-07-04] MEDS: HYDROCHLOROTHIAZIDE 25 MG TAB PO SCH (07:33)
[2017-07-04] MEDS: GABAPENTIN 100 MG CAP PO SCH ×3 (07:33→21:00)
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
[2017-07-04] MEDS: THIAMINE HCL 100 MG TAB PO SCH (10:27)
[2017-07-04] MEDS: MULTIVITAMIN TAB PO SCH (10:27)
[2017-07-04] MEDS: AMLODIPINE BESYLATE 5 MG TAB PO SCH (10:28)
--- NOTE | 2017-07-04 12:59 | Critical Care Progress Note ---
Critical Care Progress Note Date of Service Jul 04, 2017. Attending Dr. Bear Subjective Patient was seen and examined by Dorie Canada PA-C who completed a consult note after midnight. This is an additional note regarding plan for today. Mr. Yu was transferred the intensive care last night for further management and treatment regarding shortness of breath. The patient has herpetic zoster involving the right forehead and eye. At this point, zoster is not disseminated and there are no open lesions. Patient has severe scabbing over his right eye and for head which is painful and inhibiting the patient from opening his eye. Patient was seen by Dr. Mckeon from ophthalmology this morning. At that time the eye was barely able to be opened. Facial imaging was reviewed with Dr. Bell of radiology and cellulitis appears to be superficial with no vascular or muscle involvement at this time. Patient reports his shortness of breath is still persistent. However, SaO2, ABGs, and respiratory effort did not demonstrate respiratory failure. There is no use of accessory muscles. Patient denies chest pain or tightness. No fever, sweats, rigors. No swelling of the tongue. No stridor. No other complaints. Objective Vital Signs - as noted below Laboratory Data - as noted below Physical Exam: General - NAD Face - Scabbing and closed lesions above right eye involving the right orbital area. EOMI does not appear to be intact to the right eye Eyes - No icterus, gaze conjugate ENT - Mucosa moist, no lesions or candidiasis Neck - Supple, No JVD Lungs - No bronchospasm, rales, or rhonchi. However, breath sounds are distant Heart - Regular, rate controlled Abdomen - Soft, NT, ND, BS present Extremities - No edema, pedal pulses intact Neuro - A&OX3 Assessment & Plan Addendum to the consult note done by Dorie Canada PA-C Patient seen by Dr. Mckeon. I had lengthy discussion with Dr. Mckeon and reviewed facial images in the ICU and then discussed images with Dr. Bell in the radiology suite. PULMONARY * ABGs 7.47/30/64/22/94% on nasal cannula 2 L * No use of accessory muscles * SaO2 98% * No indication for endotracheal intubation with mechanical ventilation at this time * Continue to monitor clinically HERPES ZOSTER * Patient seen by Dr. Mckeon * Change Cipro ophthalmic drop to TobraDex ointment 1/8 inch applied inside lower lid three times daily * Dr. Mckeon will stop back tomorrow or Saturday of to review * Patient will need outpatient follow-up with Dr. Mckeon until cleared IV ACCESS * No indication for central line * Continue with peripheral IVs CARDIOPULMONARY * No chest pain or tightness * Hypertension currently being treated only with hydralazine PRN * Patient is currently on 25 mg daily of hydrochlorothiazide at home * Heart rate 83 * Start CCB daily * Continue to monitor on telemetry ETHANOL ABUSE HISTORY * Discontinue banana bag * Multivitamin by mouth * Continue with folic acid and thiamine orally * Reported last drink is one week ago on Saturday * Continue AWSS protocol ID * Non-disseminated herpetic zoster * Valcyclovir changed to 1g TID * Discontinue Cipro ophthalmic drops. Add TobraDex ophthalmic ointment - further management of high involvement by Dr. Mckeon * Continue contact precautions Total time spent with patient, patient's examination, discussion with Dr. Mckeon , review of films with Dr. Bell is 30 minutes All results discussed with Dr. Bear Consults & Procedures Consultants: Ophthalmology-Dr. Mckeon Wound care nurse Ed Tech-Dr. Bear Procedures: None Data Medications: Current Inpatient Medications Medications (Trade) Dose Ordered Sig/Tapan Route Start Time Stop Time Status Last Admin Dose Admin Ioversol (Optiray 320) 111 ml UD PRN IV 07/02/17 14:15 07/06/17 14:14 Enoxaparin Sodium (Lovenox Inj) 40 mg Q24H SC 07/02/17 22:00 08/01/17 21:59 07/03/17 22:22 40 MG Acetaminophen (Tylenol Tab) 650 mg Q4H PRN PO 07/02/17 18:45 08/01/17 18:44 07/04/17 03:41 650 MG Al Hydrox/Mg Hydrox/Simethicone (Maalox Max Susp) 15 ml Q4H PRN PO 07/02/17 18:45 08/01/17 18:44 Magnesium Hydroxide (Milk Of Magnesia Susp) 30 ml Q12H PRN PO 07/02/17 18:45 08/01/17 18:44 Ondansetron HCl (Zofran Inj) 4 mg Q6H PRN IV 07/02/17 18:45 08/01/17 18:44 Miscellaneous Information (Consult) 1 ea UD PRN N/A 07/02/17 18:45 08/01/17 18:44 Piperacillin Sod/ Tazobactam Sod 3.375 gm/Dextrose 115 ml @ 28.75 mls/ hr Q8 IV 07/02/17 22:00 07/12/17 21:59 07/04/17 06:27 28.75 MLS/HR Miscellaneous Information (Consult) 1 ea UD PRN N/A 07/02/17 18:45 08/01/17 18:44 Cyclobenzaprine HCl (Flexeril Tab) 10 mg TID PRN PO 07/02/17 18:45 08/01/17 18:44 Folic Acid (Folvite Tab) 1 mg DAILY PO 07/03/17 09:00 08/02/17 08:59 07/04/17 07:32 1 MG Hydrochlorothiazide (Hydrochlorothiazide Tab) 25 mg DAILY PO 07/03/17 09:00 08/02/17 08:59 07/04/17 07:33 25 MG Prednisone (PredniSONE TAB) 10 mg DAILY PO 07/03/17 09:00 08/02/17 08:59 07/04/17 07:33 10 MG Hydralazine HCl (HydrALAZINE INJ) 5 mg Q4H PRN IV. 07/02/17 18:45 08/01/17 18:44 07/04/17 03:42 5 MG Vancomycin HCl 1500 mg/Sodium Chloride 530 ml @ 200 mls/hr 0500,1300,2100 IV 07/02/17 21:25 07/12/17 21:24 07/04/17 06:27 200 MLS/HR Polyethylene (Miralax Powder Packet) 17 gm DAILY PRN PO 07/03/17 11:15 08/02/17 11:14 Bisacodyl (Dulcolax Tab) 5 mg DAILY PRN PO 07/03/17 11:15 08/02/17 11:14 Morphine Sulfate (MoRPHine SULFATE INJ) 6 mg Q3H PRN IV 07/03/17 11:30 07/16/17 18:44 07/03/17 19:40 6 MG Gabapentin (Neurontin Cap) 100 mg TID PO 07/03/17 14:00 08/02/17 13:59 2/1/18 07:33 100 MG Ciprofloxacin HCl (Ciprofloxacin 0.3% Op Soln) 2 drops Q4H OPR 07/03/17 15:15 07/13/17 15:14 07/04/17 07:14 2 DROPS Lorazepam (Ativan Inj) 1 mg ONE PRN IV 07/04/17 03:45 Valacyclovir HCl (Valtrex Tab) 1,000 mg TID PO 07/04/17 09:00 07/12/17 20:59 07/04/17 08:43 1,000 MG Multivitamins (Multivitamin Tab) 1 tab QAM PO 07/04/17 09:30 08/03/17 09:29 07/04/17 10:27 1 TAB Thiamine HCl (Vitamin B-1 Tab) 100 mg QAM PO 07/04/17 09:30 08/03/17 09:29 07/04/17 10:27 100 MG Amlodipine Besylate (Norvasc Tab) 10 mg QAM PO 07/04/17 09:30 08/03/17 09:29 07/04/17 10:28 10 MG Vital Signs: Date Time Temp Pulse Resp B/P (MAP) Pulse Ox O2 Delivery O2 Flow Rate FiO2 07/04/17 10:00 104 22 150/101 (117) 94 Nasal Cannula 2.0 07/04/17 08:00 98 Nasal Cannula 2.0 07/04/17 08:00 36.8 98 26 168/112 (130) 98 Nasal Cannula 2.0 07/04/17 04:58 37.3 104 28 174/109 (130) 93 Room Air 07/04/17 04:00 Room Air 07/04/17 03:10 38.2 93 24 182/126 (144) 95 Room Air 182/117 (138) 07/03/17 23:59 Room Air 07/03/17 23:24 37.0 94 19 155/74 (101) 94 Room Air 07/03/17 22:05 37.1 07/03/17 20:00 Room Air 07/03/17 19:23 38.8 112 20 141/97 (112) 92 Room Air 07/03/17 16:00 Room Air 07/03/17 15:45 36.9 79 18 161/97 (118) 92 Room Air 07/03/17 12:00 Room Air 07/03/17 11:36 36.5 73 20 156/96 (116) 92 Room Air Laboratory Results: Last 24 Hours Test 07/03/17 10:41 07/03/17 16:25 07/04/17 03:58 07/04/17 07:30 Bedside Glucose 104 mg/dl 125 mg/dl White Blood Count 8.61 K/uL Red Blood Count 4.60 M/uL Hemoglobin 15.1 g/dL Hematocrit 43.8 % Mean Corpuscular Volume 95.2 fL Mean Corpuscular Hemoglobin 32.8 pg Mean Corpuscular Hemoglobin Concent 34.5 g/dl Platelet Count 114 K/uL Mean Platelet Volume 10.2 fL Neutrophils (%) (Auto) 71.0 % Lymphocytes (%) (Auto) 20.7 % Monocytes (%) (Auto) 7.4 % Eosinophils (%) (Auto) 0.1 % Basophils (%) (Auto) 0.3 % Neutrophils # (Auto) 6.11 K/uL Lymphocytes # (Auto) 1.78 K/uL Monocytes # (Auto) 0.64 K/uL Eosinophils # (Auto) 0.01 K/uL Basophils # (Auto) 0.03 K/uL RDW Standard Deviation 48.4 fL RDW Coefficient of Variation 14.0 % Immature Granulocyte % (Auto) 0.5 % Immature Granulocyte # (Auto) 0.04 K/uL Sodium Level 129 mmol/L Potassium Level 3.1 mmol/L Chloride Level 94 mmol/L Carbon Dioxide Level 28 mmol/L Anion Gap 7.0 mmol/L Blood Urea Nitrogen 15 mg/dl Creatinine 0.92 mg/dl Est Creatinine Clear Calc Drug Dose 102.8 ml/min Estimated GFR () 102.9 Estimated GFR (Non- 88.8 BUN/Creatinine Ratio 16.3 Random Glucose 77 mg/dl Osmolality 268 mOsm/kg Calcium Level 7.7 mg/dl Vitamin B12 Level 232 pg/mL Folate 13.77 ng/mL Vancomycin Level Trough 20.6 mcg/ml Urine Color YELLOW Urine Appearance CLEAR Urine pH 7.0 Urine Specific [place] 1.016 Urine Protein NEG Urine Glucose (UA) NEG Urine Ketones NEG Urine Occult Blood NEG Urine Nitrite NEG Urine Bilirubin NEG Urine Urobilinogen NEG Urine Leukocyte Esterase NEG Urine Osmolality 584 mOms/kg Urine Random Sodium 208 mEq/L Urine Opiates Screen POS Urine Methadone, Qualitative NEG Urine Barbiturates NEG Urine Phencyclidine (PCP) Level NEG Ur Amphetamine/Methamphetamine NEG MDMA (Ecstasy) Screen NEG Urine Benzodiazepines Screen NEG Urine Cocaine Metabolite NEG Urine Marijuana (THC) NEG Test 07/04/17 08:32 Blood Gas Sample Site R Radial Bedside Blood Gas pH (LAB) 7.47 Bedside Blood Gas pCO2 (LAB) 30 mmHg Bedside Blood Gas pO2 (LAB) 64 mmHg Bedside Blood Gas HCO3 (LAB) 22 meq/L Bedside Blood Gas Total CO2 23 mEq/l Bedside Blood Gas Base Excess (LAB) -2.0 meq/L Bedside Blood Gas O2 Saturation 94.0 % Tanvir Test Pass Oxygen Delivery Device Cannula
[2017-07-04] MEDS: CEFAZOLIN IV 1,000 MG in SYRINGE 2.5 ML IV SCH ×2 (13:49→21:43)
[2017-07-04] MEDS: TOBRAMYCIN/DEXAMETHASONE OPH OINT 3.5 GM TUBE OP SCH ×2 (14:30→21:00)
--- NOTE | 2017-07-04 14:32 | CONSULTATION REPORT ---
DATE OF CONSULTATION: 07/04/2017 I was consulted to see this patient by Dr. Clive Chase. The patient has a several-day history of advanced right periorbital herpes zoster. His past medical history is significant for rheumatoid arthritis and he is on prednisone. Past ophthalmic history is significant for Lasik surgery in each eye. He is currently on treatment for herpes zoster with IV antibiotics including vancomycin and IV antivirals. The external examination shows very advanced right periorbital zoster lesions. It is somewhat difficult to even open his eyelid. It is not possible to check the vision in the right eye. The near vision in his left eye is normal. It is also difficult to check his pupil reaction, although the pupils seem to react normally. There is a significant amount of chemosis of the right eye. The horizontal eye movements of his right eye appeared to be mildly limited. The examination of the left eye is completely normal. It is not possible to visualize the retina and his right eye. I did review the CAT scan with the radiologist. There was no apparent orbital inflammation. The impression is advanced right herpes zoster and he is on full medical treatment. I will discontinue the ciprofloxacin eyedrops and use TobraDex ointment in his right eye 3 times daily. I will check him again in 1 or 2 days. Thank you for this consult.
[2017-07-04] MEDS: MoRPHine SULFATE 10 MG/ML CARP/VIAL IV PRN ×2 (19:22→23:37)
[2017-07-04] MEDS: ENOXAPARIN 40 MG/0.4 ML SYR SC SCH (21:43)
[2017-07-05] MEDS: MoRPHine SULFATE 10 MG/ML CARP/VIAL IV PRN ×4 (02:44→13:18)
[2017-07-05 06:13] LABS: BASO % 0.3 %; BASO ABS # 0.03 K/uL (0-0.2); EOS % 0.6 %; EOS ABS # 0.06 K/uL (0-0.5); HEMATOCRIT 41.6 % (42-52); HEMOGLOBIN 14.4 g/dL (14.0-18.0); IG# 0.03 K/uL (0.00-0.02); LYMPH % 27.1 %; LYMPH ABS # 2.64 K/uL (1.2-3.4); MEAN CELL VOLUME 94.1 fL (80-100); MEAN CORPUSCULAR HEMOGLOBIN 32.6 pg (25-34); MEAN CORPUSCULAR HGB CONC 34.6 g/dl (32-36); MEAN PLATELET VOLUME 10.2 fL (7.4-10.4); MONO % 7.5 %; MONO ABS # 0.73 K/uL (0.11-0.59); NEUT % 64.2 %; NEUT ABS # 6.24 K/uL (1.4-6.5); PLATELET COUNT 127 K/uL (130-400); RED CELL DISTRIBUTION WIDTH CV 13.9 % (11.5-14.5); RED CELL DISTRIBUTION WIDTH SD 47.7 fL (36.4-46.3); WHITE BLOOD COUNT 9.73 K/uL (4.8-10.8)
[2017-07-05] MEDS: CEFAZOLIN IV 1,000 MG in SYRINGE 2.5 ML IV SCH ×3 (06:15→22:13)
[2017-07-05 06:43] LABS: CALCIUM 7.8 mg/dl (8.5-10.1); CREATININE 0.8 mg/dl (0.60-1.40); POTASSIUM 3.1 mmol/L (3.5-5.1)
--- NOTE | 2017-07-05 07:16 | Family Medicine Progress Note ---
Progress Note Date of Service Jul 05, 2017.
[2017-07-05] MEDS: THIAMINE HCL 100 MG TAB PO SCH (07:53)
[2017-07-05] MEDS: AMLODIPINE BESYLATE 5 MG TAB PO SCH (07:53)
[2017-07-05] MEDS: ACETAMINOPHEN 325 MG TAB PO PRN ×2 (07:53→21:11)
[2017-07-05] MEDS: HYDROCHLOROTHIAZIDE 25 MG TAB PO SCH (07:54)
[2017-07-05] MEDS: MULTIVITAMIN TAB PO SCH (07:54)
[2017-07-05] MEDS: GABAPENTIN 100 MG CAP PO SCH ×2 (07:54→13:17)
[2017-07-05] MEDS: TOBRAMYCIN/DEXAMETHASONE OPH OINT 3.5 GM TUBE OP SCH ×3 (07:55→19:29)
[2017-07-05 07:58] VITALS: BP 124/83; PULSE 84; TEMP 36.5; O2SAT 93
[2017-07-05 08:00] VITALS: O2SAT 93
[2017-07-05 08:57] VITALS: O2SAT 93
[2017-07-05] MEDS ORDERED: MoRPHine SULFATE 2 MG/ML CARP ONE (09:07)
[2017-07-05] MEDS ORDERED: NURSING VERBAL MED ORDER ONE ×2 (09:15→21:30)
[2017-07-05] MEDS ORDERED: GABAPENTIN 100 MG CAP PO ONE (15:30)
[2017-07-05 15:44] VITALS: BP 129/84; PULSE 97; TEMP 36.5; O2SAT 94
[2017-07-05] MEDS: MoRPHine SULFATE CR 15 MG TAB (MS CONTIN) PO SCH ×2 (16:07→20:00)
--- NOTE | 2017-07-05 16:57 | Medical Student: [facility] ---
Med Student Progress Note Date of Service Jul 05, 2017. Subjective This is a 61-year-old gentleman with a history of RA treated with prednisone and HTN who is admitted for Shingles with superimposed cellulitis concerning for Donnell's angina, currently treated with valacyclovir, cefazolin, and Tobramycin/dexamethasone. He states that his pain is worse today and that he has been awake since 2:30 this morning because of it. He rates it as 10/10 and describes it has intermittent stabbing. He continues to have difficulty seeing out of his R eye and has swelling in his neck. He has no SOB, dysphagia, or decreased ROM of the neck. Review of Systems Constitutional: No fever, No chills Eyes: + worsening of vision, + eye pain Respiratory: No shortness of breath Cardiac: No chest pain, No palpitations Abdomen: + diarrhea, No nausea Male : No dysuria Objective Vital Signs Date Time Temp Pulse Resp B/P (MAP) Pulse Ox O2 Delivery O2 Flow Rate FiO2 07/05/17 16:00 Room Air 07/05/17 15:44 36.5 97 18 129/84 (99) 94 Room Air 07/05/17 08:57 93 Room Air 07/05/17 08:00 93 Room Air 07/05/17 07:58 36.5 84 14 124/83 (97) 93 Room Air 07/04/17 23:57 36.9 87 18 122/85 (97) 95 Room Air 07/04/17 19:13 36.8 101 20 132/92 (105) 95 Room Air 07/04/17 19:00 94 Room Air 07/04/17 18:49 37.6 118 20 94 07/04/17 18:00 118 20 126/85 (99) 94 Room Air Physical Exam General Appearance: + moderate distress Eyes: left eye pertinent finding (rash over V1 distribution with crusting) Neck: + pertinent finding (submandibular swelling) Respiratory/Chest: lungs clear, normal breath sounds, no respiratory distress Cardiovascular: regular rate, rhythm, + systolic murmur (over mitral area) Abdomen: normal bowel sounds, non tender, soft, no organomegaly Extremities: normal inspection, no pedal edema, no calf tenderness Neurologic/Psychiatric: alert Laboratory Results Last 24 Hours Test 07/05/17 05:28 07/05/17 05:50 White Blood Count 9.73 K/uL Red Blood Count 4.42 M/uL Hemoglobin 14.4 g/dL Hematocrit 41.6 % Mean Corpuscular Volume 94.1 fL Mean Corpuscular Hemoglobin 32.6 pg Mean Corpuscular Hemoglobin Concent 34.6 g/dl Platelet Count 127 K/uL Mean Platelet Volume 10.2 fL Neutrophils (%) (Auto) 64.2 % Lymphocytes (%) (Auto) 27.1 % Monocytes (%) (Auto) 7.5 % Eosinophils (%) (Auto) 0.6 % Basophils (%) (Auto) 0.3 % Neutrophils # (Auto) 6.24 K/uL Lymphocytes # (Auto) 2.64 K/uL Monocytes # (Auto) 0.73 K/uL Eosinophils # (Auto) 0.06 K/uL Basophils # (Auto) 0.03 K/uL RDW Standard Deviation 47.7 fL RDW Coefficient of Variation 13.9 % Immature Granulocyte % (Auto) 0.3 % Immature Granulocyte # (Auto) 0.03 K/uL Sodium Level 128 mmol/L Potassium Level 3.1 mmol/L Chloride Level 91 mmol/L Carbon Dioxide Level 28 mmol/L Anion Gap 9.0 mmol/L Blood Urea Nitrogen 9 mg/dl Creatinine 0.80 mg/dl Est Creatinine Clear Calc Drug Dose 119.1 ml/min Estimated GFR () 111.0 Estimated GFR (Non- 95.7 BUN/Creatinine Ratio 11.8 Random Glucose 109 mg/dl Calcium Level 7.8 mg/dl Stool Occult Blood NEGATIVE Assessment and Plan Assessment and Plan: This is a 61-year-old gentleman with a history of RA treated with prednisone and HTN who is admitted for Shingles with superimposed cellulitis concerning for Donnell's angina. SHINGLES & CELLULITIS Currently treated with cefazolin, tobramycin/dexamethasone, and valacyclovir. Pt had decreased swelling on left side of face such that he is now able to open this eye. Ophthalmology will follow to protect vision in right eye. Continue current treatment regimen as he is improving. PAIN Pt continues to complain of pain. He has accepted every offering of morphine, which provides relief for a short bit of time before the pain returns. We will change to MSContin to decrease window periods of pain. We will start with 20mg BID and continue to offer 2mg q4 hours PRN. We will monitor how much PRN he accepts and adjust long acting accordingly. We will also increase gabapentin to 300 mg TID. HTN Pt has had stable blood pressure with the addition of amlodipine. Continue amlodipine, HCTZ. Continue hydralazine PRN if SBP >180. RHEUMATOID ARTHRITIS Pt reports RA-related pain is stable. Continue 10mg prednisone daily. DVT PPX Pt denies calf pain. Continue enoxaparin. Continued [facility] stay due to: ambulation difficulties (impaired vision), multiple IV medications needed, home environment unsafe for pt
--- NOTE | 2017-07-05 17:04 | Family Medicine Progress Note ---
Progress Note Date of Service Jul 05, 2017. Subjective Pt evaluation today including: conversation w/ patient, physical exam, chart review, lab review Constitutional: No fever, No chills, No sweats Respiratory: No cough, No sputum, No wheezing Cardiovascular: No chest pain, No palpitations Abdomen: No pain, No nausea, No vomiting, No diarrhea Additional Comments: Patient reports 10/10 stabbing right sided pain. Patient has been tolerating PO intake and denies trouble swallowing. He is actually more alert today and the swelling of his face is less. Medications Current Inpatient Medications Medications (Trade) Dose Ordered Sig/[place] Route Start Time Stop Time Status Last Admin Dose Admin Ioversol (Optiray 320) 111 ml UD PRN IV 07/02/17 14:15 07/06/17 14:14 Enoxaparin Sodium (Lovenox Inj) 40 mg Q24H SC 07/02/17 22:00 08/01/17 21:59 07/04/17 21:43 40 MG Acetaminophen (Tylenol Tab) 650 mg Q4H PRN PO 07/02/17 18:45 08/01/17 18:44 07/05/17 07:53 650 MG Al Hydrox/Mg Hydrox/Simethicone (Maalox Max Susp) 15 ml Q4H PRN PO 07/02/17 18:45 08/01/17 18:44 Magnesium Hydroxide (Milk Of Magnesia Susp) 30 ml Q12H PRN PO 07/02/17 18:45 08/01/17 18:44 Ondansetron HCl (Zofran Inj) 4 mg Q6H PRN IV 07/02/17 18:45 08/01/17 18:44 Cyclobenzaprine HCl (Flexeril Tab) 10 mg TID PRN PO 07/02/17 18:45 08/01/17 18:44 Folic Acid (Folvite Tab) 1 mg DAILY PO 07/03/17 09:00 08/02/17 08:59 07/05/17 07:54 1 MG Hydrochlorothiazide (Hydrochlorothiazide Tab) 25 mg DAILY PO 07/03/17 09:00 08/02/17 08:59 07/05/17 07:54 25 MG Prednisone (PredniSONE TAB) 10 mg DAILY PO 07/03/17 09:00 08/02/17 08:59 07/05/17 07:54 10 MG Hydralazine HCl (HydrALAZINE INJ) 5 mg Q4H PRN IV. 07/02/17 18:45 08/01/17 18:44 07/04/17 03:42 5 MG Polyethylene (Miralax Powder Packet) 17 gm DAILY PRN PO 07/03/17 11:15 08/02/17 11:14 Bisacodyl (Dulcolax Tab) 5 mg DAILY PRN PO 07/03/17 11:15 08/02/17 11:14 Lorazepam (Ativan Inj) 1 mg ONE PRN IV 07/04/17 03:45 Valacyclovir HCl (Valtrex Tab) 1,000 mg TID PO 07/04/17 09:00 07/12/17 20:59 07/05/17 13:17 1,000 MG Multivitamins (Multivitamin Tab) 1 tab QAM PO 07/04/17 09:30 08/03/17 09:29 07/05/17 07:54 1 TAB Thiamine HCl (Vitamin B-1 Tab) 100 mg QAM PO 07/04/17 09:30 08/03/17 09:29 07/05/17 07:53 100 MG Amlodipine Besylate (Norvasc Tab) 10 mg QAM PO 07/04/17 09:30 08/03/17 09:29 07/05/17 07:53 10 MG Tobramycin/ Dexamethasone (Tobradex Oph Oint) 1 appln TID OP 07/04/17 14:00 08/03/17 13:59 07/05/17 13:17 1 APPLN Cefazolin Sodium 1000 mg/Syringe 7.5 ml @ 2.5 mls/min Q8H IV 07/04/17 14:00 07/11/17 13:59 07/05/17 13:17 2.5 MLS/MIN Gabapentin (Neurontin Cap) 300 mg TID PO 07/05/17 20:00 08/02/17 19:59 Morphine Sulfate (MoRPHine SULFATE INJ) 2 mg Q2H PRN IV 07/05/17 15:15 07/16/17 18:44 Morphine Sulfate (Oramorph Sr Tab) 15 mg BID PO 07/05/17 16:00 07/19/17 15:59 07/05/17 16:07 15 MG Objective Vital Signs Date Time Temp Pulse Resp B/P (MAP) Pulse Ox O2 Delivery O2 Flow Rate FiO2 07/05/17 16:00 Room Air 07/05/17 15:44 36.5 97 18 129/84 (99) 94 Room Air 07/05/17 08:57 93 Room Air 07/05/17 08:00 93 Room Air 07/05/17 07:58 36.5 84 14 124/83 (97) 93 Room Air 07/04/17 23:57 36.9 87 18 122/85 (97) 95 Room Air 07/04/17 19:13 36.8 101 20 132/92 (105) 95 Room Air 07/04/17 19:00 94 Room Air 07/04/17 18:49 37.6 118 20 94 07/04/17 18:00 118 20 126/85 (99) 94 Room Air Physical Exam General Appearance: WD/WN, + mild distress Eyes: + abnormal EOM (able to move left eye normally, pt has motor function of right eye, but decreased. ), + abnormal sclerae exam (abnormal ) Respiratory/Chest: chest non-tender, lungs clear, normal breath sounds Cardiovascular: regular rate, rhythm, no edema, no murmur Neurologic/Psychiatric: alert, normal mood/affect, oriented x 3 Skin: + pertinent finding (ulcerated lesion extending the length of V1, erythema and swelling of left periorbit ) Laboratory Results 07/05/17 05:28 Red Blood Count 4.42, Mean Corpuscular Volume 94.1, Mean Corpuscular Hemoglobin 32.6, Mean Corpuscular Hemoglobin Concent 34.6, Mean Platelet Volume 10.2, Neutrophils (%) (Auto) 64.2, Lymphocytes (%) (Auto) 27.1, Monocytes (%) (Auto) 7.5, Eosinophils (%) (Auto) 0.6, Basophils (%) (Auto) 0.3, Neutrophils # (Auto) 6.24, Lymphocytes # (Auto) 2.64, Monocytes # (Auto) 0.73, Eosinophils # (Auto) 0.06, Basophils # (Auto) 0.03 07/05/17 05:28 Test 07/05/17 05:28 07/05/17 05:50 White Blood Count 9.73 K/uL (4.8-10.8) Red Blood Count 4.42 M/uL (4.7-6.1) Hemoglobin 14.4 g/dL (14.0-18.0) Hematocrit 41.6 % (42-52) Mean Corpuscular Volume 94.1 fL (80-100) Mean Corpuscular Hemoglobin 32.6 pg (25-34) Mean Corpuscular Hemoglobin Concent 34.6 g/dl (32-36) Platelet Count 127 K/uL (130-400) Mean Platelet Volume 10.2 fL (7.4-10.4) Neutrophils (%) (Auto) 64.2 % Lymphocytes (%) (Auto) 27.1 % Monocytes (%) (Auto) 7.5 % Eosinophils (%) (Auto) 0.6 % Basophils (%) (Auto) 0.3 % Neutrophils # (Auto) 6.24 K/uL (1.4-6.5) Lymphocytes # (Auto) 2.64 K/uL (1.2-3.4) Monocytes # (Auto) 0.73 K/uL (0.11-0.59) Eosinophils # (Auto) 0.06 K/uL (0-0.5) Basophils # (Auto) 0.03 K/uL (0-0.2) RDW Standard Deviation 47.7 fL (36.4-46.3) RDW Coefficient of Variation 13.9 % (11.5-14.5) Immature Granulocyte % (Auto) 0.3 % Immature Granulocyte # (Auto) 0.03 K/uL (0.00-0.02) Anion Gap 9.0 mmol/L (3-11) Est Creatinine Clear Calc Drug Dose 119.1 ml/min Estimated GFR () 111.0 Estimated GFR (Non- 95.7 BUN/Creatinine Ratio 11.8 (10-20) Calcium Level 7.8 mg/dl (8.5-10.1) Stool Occult Blood NEGATIVE (NEGATIVE) Assessment and Plan 61 male PMH of RA on prednisone with bilateral facial swelling and erythema. Herpes Zoster lesion in the distribution of V1 and bilateral facial cellulitis. 2/2--The patients face and forehead--less erythematous, less edematous. Today the patient is more alert, but in greater pain. The periorbital swelling on the right side has significantly decreased. While the swelling of his left eye has improved, motor function of the scabbed ulcerated lid continues to be an issue. Was able to open left eye to irrigate. The pt currently has compromised, yet intact vision of his right eye. Vision of the left eye is normal. Today we are closely addressing the patients severe pain. Prescribing 15mg PO Morphine BID. In addition, increasing gabapentin to 300mg TID. Bilateral facial cellulitis-Shingles of V1 distribution -Continue IVF -Continue abx; Cefazolin -BC no growth -Morphine 2mg IV PRN -Morphine 15mg PO BID -Continue Valtrex 1gram -Ophthalmology consult; prescribed TobraDex ointment, will continue to follow -Gabapentin 300mg TID Rheumatoid Arthritis -Continue prednisone 10mg Hypertension -Continue HCTZ 25mg -5mg Hydralazine BP>180 Code; DNR DVT ppx; Lovenox Resident Physician Supervision Note: I was present with Dr. Feldman during the history and exam. I discussed the case with the resident and agree with the findings and plan as documented in the note. Will add long acting morphine and titrate based on PRN doses overnight. Increase Neurontin to 300 mg TID. Documented By: Juan Self
[2017-07-05] MEDS ORDERED: POTASSIUM CHLORIDE 20 MEQ TABCR PO STA (17:14)
[2017-07-05] MEDS: GABAPENTIN 300 MG CAP PO SCH (19:33)
[2017-07-05] MEDS: MoRPHine SULFATE 2 MG/ML CARP IV PRN ×2 (19:40→22:12)
[2017-07-05] MEDS ORDERED: MoRPHine SULFATE 4 MG/ML 1 ML CARP\\VIAL ONE (21:34)
[2017-07-05] MEDS: ENOXAPARIN 40 MG/0.4 ML SYR SC SCH (22:13)
--- NOTE | 2017-07-05 23:13 | Progress Note ---
Post ICU Progress Note Date & Time Jul 05, 2017 at 22:51 Vital Signs Vital Signs Past 12 Hours Date Time Temp Pulse Resp B/P (MAP) Pulse Ox O2 Delivery O2 Flow Rate FiO2 07/05/17 20:00 Room Air 07/05/17 16:00 Room Air 07/05/17 15:44 36.5 97 18 129/84 (99) 94 Room Air Notes Mental Status: alert / awake, participated in evaluation Nausea / Vomiting: adequately controlled Pain: see Notes (Facial pain extreme, received Morphine just prior to my evaluation. ) Airway Patency, RR, SpO2: stable & adequate BP & HR: stable & adequate Fernando Yu is a 61 yo male who was admitted to the ICU for close observation after reporting shortness of breath and tongue swelling 2/2 to already known facial swelling due to herpes zoster of the ophthalmic distribution. Pt received 40mg of Prednisone and 50mg of Bendaryl. His symptoms improved and he was downgraded to telemetry status later that day. He did not require intubation, central acces, or invasive monitoring. Pt is also being followed for alcohol withdrawal this admission. Upon my evaluation today, he is on room air with adequate saturations. He denies trouble swallowing, breathing or tongue swelling. He is holding his face and occasionally yelling in pain. He is trying cold compresses as well. There are no additional acute finding on physical exam. In fact, pts swelling is much improved. Pt is currently stable without any additional complaints. Consider outpatient follow up in 1 to 2 weeks with: Ophthalmology; Dr. Mckeon and PCP Dr. Patrick Purdy Repeat imaging needed: N/A Follow up cultures: N/A Reviewed progress notes, labs, and inpatient medication list Continue current management Additional recommendations: Defer to hospital team Pt is stable at this time. Critical care will sign off at this time. Thank you for including us in the care of this pt; please feel free to reconsult as needed. Consults & Procedures Consultants: Ophthalmology-Dr. Mckeon Wound care nurse Academic Support Specialist-Dr. Bear Procedures: None
[2017-07-06 00:26] VITALS: BP 119/84; PULSE 75; TEMP 36.4; O2SAT 93
[2017-07-06] MEDS: CEFAZOLIN IV 1,000 MG in SYRINGE 2.5 ML IV SCH (06:11)
[2017-07-06 06:48] LABS: BASO % 0.4 %; BASO ABS # 0.03 K/uL (0-0.2); EOS % 0.9 %; EOS ABS # 0.08 K/uL (0-0.5); HEMATOCRIT 41.4 % (42-52); HEMOGLOBIN 14.1 g/dL (14.0-18.0); IG# 0.02 K/uL (0.00-0.02); LYMPH % 26.3 %; LYMPH ABS # 2.24 K/uL (1.2-3.4); MEAN CELL VOLUME 94.3 fL (80-100); MEAN CORPUSCULAR HEMOGLOBIN 32.1 pg (25-34); MEAN CORPUSCULAR HGB CONC 34.1 g/dl (32-36); MEAN PLATELET VOLUME 10.7 fL (7.4-10.4); MONO % 7.9 %; MONO ABS # 0.67 K/uL (0.11-0.59); NEUT % 64.3 %; NEUT ABS # 5.47 K/uL (1.4-6.5); PLATELET COUNT 132 K/uL (130-400); RED CELL DISTRIBUTION WIDTH CV 13.7 % (11.5-14.5); RED CELL DISTRIBUTION WIDTH SD 47.2 fL (36.4-46.3); WHITE BLOOD COUNT 8.51 K/uL (4.8-10.8)
[2017-07-06 07:24] LABS: CREATININE 0.57 mg/dl (0.60-1.40); POTASSIUM 3.2 mmol/L (3.5-5.1)
[2017-07-06 07:56] VITALS: BP 134/91; PULSE 85; TEMP 36.4; O2SAT 98
[2017-07-06] MEDS: MoRPHine SULFATE 2 MG/ML CARP IV PRN ×2 (08:22→10:42)
[2017-07-06] MEDS: GABAPENTIN 300 MG CAP PO SCH ×2 (08:23→14:46)
[2017-07-06] MEDS: THIAMINE HCL 100 MG TAB PO SCH (08:23)
[2017-07-06] MEDS: MULTIVITAMIN TAB PO SCH (08:23)
[2017-07-06] MEDS: TOBRAMYCIN/DEXAMETHASONE OPH OINT 3.5 GM TUBE OP SCH (08:24)
[2017-07-06] MEDS: HYDROCHLOROTHIAZIDE 25 MG TAB PO SCH (08:24)
[2017-07-06] MEDS: AMLODIPINE BESYLATE 5 MG TAB PO SCH (08:24)
[2017-07-06] MEDS: MoRPHine SULFATE CR 15 MG TAB (MS CONTIN) PO SCH (08:32)
[2017-07-06] MEDS ORDERED: NURSING VERBAL MED ORDER ONE (10:15)
[2017-07-06] MEDS ORDERED: hydrOXYzine HCL 25 MG TAB PO PRN (11:45)
[2017-07-06] MEDS ORDERED: TOBRAMYCIN/DEXAMETHASONE OPH OINT 3.5 GM TUBE OPR SCH (12:00)
[2017-07-06] MEDS ORDERED: MoRPHine SULFATE 4 MG/ML 1 ML CARP\\VIAL IV STA (12:07)
--- NOTE | 2017-07-06 13:10 | CONSULTATION REPORT ---
DATE OF CONSULTATION: 07/06/2017 The patient was examined in followup on July 06. His right eyelid swelling was slightly better. I was able to open his eyelid. His extraocular movements are improving. The pupil reacts normally and the cornea appears clear. His close vision was J16. In summary, his condition appears to be improving. He will use TobraDex ointment in this eye 4 times daily including upon discharge. He will follow up with his eye care provider soon after he is discharged from the hospital.
[2017-07-06] MEDS ORDERED: VLT500 PO (14:49)
[2017-07-06] MEDS ORDERED: OXYC1CAP5 PO (14:49)
[2017-07-06] MEDS ORDERED: CEPH-571 PO (14:49)
[2017-07-06] MEDS ORDERED: MORP-158 PO (14:49)
[2017-07-06] MEDS ORDERED: NRN300 PO (14:49)
[2017-07-06] MEDS ORDERED: NRV5 PO (14:49)
[2017-07-06] MEDS ORDERED: DLC5 PO (14:49)
[2017-07-06] MEDS ORDERED: TBRDOPO OPR (14:49)
--- NOTE | 2017-07-06 14:57 | Discharge Instructions ---
Discharge Instructions Date of Service Jul 06, 2017. Admission Reason for Admission: Facial Cellulitis Discharge Discharge Diagnosis / Problem: Shingles and facial cellulitis Discharge Goals Goal(s): Decrease discomfort, Improve function, Improve disease control, Diagnostic testing, Therapeutic intervention Activity Recommendations Activity Limitations: per Instructions/Follow-up section Lifting Limitations: none Exercise/Sports Limitations: gradually increase as tolerated May Resume Sexual Activity: when tolerated Shower/Bathe: no limitations Driving or Machine Use: No driving until you are off pain medications . Instructions / Follow-Up Instructions / Follow-Up You were treated for shingles and a skin infection of you face. You are leaving the hospital AGAINST MEDICAL ADVICE. We had recommended continued hospitalization for pain management and wound care. You need to follow up with your primary physician within the next week. He will need to taper your pain medications as your shingles pain improves. Do not stop these medications without consulting with your primary care doctor first. You need to follow up with your eye doctor within the next week. DO NOT DRIVE when you are taking the pain medications. Current Hospital Diet Patient's current hospital diet: AHA Diet (Heart Healthy) Discharge Diet Recommended Diet: AHA Diet (Heart Healthy) Pending Studies Studies pending at discharge: no Medical Emergencies . Who to Call and When: Medical Emergencies: If at any time you feel your situation is an emergency, please call 911 immediately. . Non-Emergent Contact Non-Emergency issues call your: Primary Care Provider Call Non-Emergent contact if: temperature is above 100.5, your pain is not controlled, your pain is worsening, your pain is unusual for you, your pain is concerning you, wound has increased drainage, wound has increased redness, wound has increased pain . . "Provider Documentation" section prepared by Juan Self. . VTE Core Measure Inpt VTE Proph given/why not?: Enoxaparin (Lovenox)[facility] Drug Monitoring Program Search Results: patient reviewed within database, no issues identified, see additional documentation Drug Monitoring Findings: Reviewed and appropriate prior use.
[2017-07-06 15:03] VITALS: BP 134/91; PULSE 85; TEMP 36.4; O2SAT 98
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
[2017-07-09 15:58] LABS: V-ZOSTER CULT ISOLATED
== END 2017-07-06 15:00 | disposition home or self-care (01) | DRG 603 ==
LOC: EDBD 13:39 → C.EDB 13:41 → C.2T 19:02 → EDBEDREQ 19:14 → ENRESERV 19:26 → C.MSICU 07-04 06:12 → EDBEDREQ 07-04 18:02 → ENRESERV 07-04 18:42 → C.4E 07-04 19:05
PROVIDERS: ADMIT Student in an Organized Health Care Education/Training Program; ATTEND Family Medicine
DX: L03.213 Periorbital cellulitis (principal); B02.39 Other herpes zoster eye disease; B02.29 Other postherpetic nervous system involvement; K12.2 Cellulitis and abscess of mouth; F10.239 Alcohol dependence with withdrawal, unspecified; E87.1 Hypo-osmolality and hyponatremia; R06.02 Shortness of breath; K59.00 Constipation, unspecified; I10 Essential (primary) hypertension; M06.9 Rheumatoid arthritis, unspecified; F17.200 Nicotine dependence, unspecified, uncomplicated; Z51.81 Encounter for therapeutic drug level monitoring; Z79.899 Other long term (current) drug therapy; Z79.52 Long term (current) use of systemic steroids; Z66 Do not resuscitate; Z82.49 Family history of ischemic heart disease and other diseases of the circulatory system

== ENCOUNTER → 2017-07-24 | Outpatient (CLI) | payer OTHER ==
[~2017-07-24] MED LIST changes: +AMOX875T PO; +CEPH500C2 PO; +DLC5 PO; +GABA-113 PO; +GANC0.15 OPR; +GATI0.5S OPR; -HYDR-3983 PO; +NRN300 PO; +NRV5 PO; +OXYC1CAP5 PO; +RXC5 PO; +TBRDOPO OPR; -TRAM-10 PO; -TRAM-453 PO; +VLT500 PO
== END | disposition home or self-care (01) ==
LOC: C.LABSPEC 17:28
PROVIDERS: ATTEND Ophthalmology
DX: B02.33 Zoster keratitis (principal)